=== PATIENT | female | born 1935 | race Caucasian/White ===

== ENCOUNTER 2016-10-05 10:49 | Observation (INO) ==
[2016-10-05] MEDS ORDERED: Ipratropium/Albuterol Neb 3 ML IH ONE (10:55)
--- NOTE | 2016-10-05 11:09 | Emergency Department Note ---
Disposition Clinical Impression: Pneumonia Qualifiers: Pneumonia type: due to unspecified organism Laterality: right Lung location: upper lobe of lung Qualified Code(s): J18.9 - Pneumonia, unspecified organism CKD (chronic kidney disease) Qualifiers: Chronic kidney disease stage: unspecified stage Qualified Code(s): N18.9 - Chronic kidney disease, unspecified Disposition: Admitted As Inpatient Condition: Good SOB HPI - General Chief Complaint: ED Shortness of Breath/Dyspnea Stated Complaint: SOB/fall Time Seen by Provider: 10/05/16 10:53 Source: patient, EMS Mode of arrival: EMS Limitations: no limitations Nursing Notes Reviewed: Yes Vital Signs Reviewed: Yes - History of Present Illness 81-year-old female history of chronic kidney disease presents for evaluation of shortness of breath. Patient notes that she has been more short of breath with exertion the past week. Reports that she woke up this morning more short of breath in which he has in the past. Denies any fevers but does note a productive cough. No chest pain. No nausea or vomiting. Patient states that she was weak and fall out of her wheelchair with weakness. Denies any pain. Pt Subjective Complaint: shortness of breath, cough - Related Data Home Medications Medication Instructions Recorded Confirmed Baclofen [Lioresal] 10 mg PO QAM 07/21/15 10/05/16 Bumetanide [Bumex] 2 mg PO DAILY 07/21/15 10/05/16 Cholecalciferol (Vitamin D3) 4,000 unit PO DAILY 07/21/15 10/05/16 [Vitamin D] Gabapentin [Neurontin] 100 mg PO QID 07/21/15 10/05/16 Insulin Glargine,Hum.rec.anlog 28 unit SQ QAM 07/21/15 10/05/16 [Lantus Solostar] Omeprazole [PriLOSEC] 20 mg PO DAILY 07/21/15 10/05/16 Pentosan Polysulfate Sodium 100 mg PO TID 07/21/15 10/05/16 [Elmiron] Acetaminophen [Tylenol] 650 mg PO Q8H 11/08/15 10/05/16 Multivitamin with Iron 1 each PO DAILY 08/23/16 10/05/16 [Multivitamins with Iron] HYDROcodone/Acet 5/325 mg [Loyal 1 tab PO Q6H PRN 10/05/16 10/05/16 5-325 mg] Allergies Allergy/AdvReac Type Severity Reaction Status Date / Time atorvastatin [From Lipitor] Allergy Nausea Verified 10/05/16 13:18 meperidine [From Demerol] Allergy Nausea Verified 10/05/16 13:18 NSAIDS (Non-Steroidal Allergy kideny Verified 10/05/16 13:18 Anti-Inflamma disease Zffulhh-Rer-Fgb Reductase Allergy Nausea Verified 10/05/16 13:18 Inhibitor [Statins] Ertapenem [From Invanz] AdvReac Confusion Verified 10/05/16 13:18 All systems ED: reviewed and negative except as stated. Constitutional: Reports: as per HPI. Denies: fever Eyes: Reports: as per HPI ENT ED: Reports: as per HPI Cardiovascular: Reports: as per HPI. Denies: chest pain Respiratory: Reports: as per HPI, cough, dyspnea, wheezes Gastrointestinal: Reports: as per HPI. Denies: abdominal pain, nausea, vomiting Genitourinary: Reports: as per HPI Musculoskeletal: Reports: as per HPI Integumentary: Reports: as per HPI Neurological: Reports: as per HPI Psychiatric: Reports: as per HPI Endocrine: Reports: as per HPI Past Medical History - Past Medical History Medical history: Reports: diabetes, GERD, hypertension, other Surgical history: Reports: appendectomy, cataract, cholecystectomy, orthopedic, other, SIMONA/BSO Psychiatric history: Reports: no psych history DIRECTOR OF LOSS PREVENTION history: Reports: non-contributory - Social History Smoking Status: Never smoker Smokeless Tobacco Status: No Alcohol use: Reports: none Drug use: Reports: none Physical Exam - General Limitations: no limitations General appearance: alert, in no apparent distress - Head Head exam: normocephalic, normal inspection - Eye Eye exam: Present: normal appearance, EOMI - ENT ENT exam: normal exam, normal oropharynx, mucous membranes moist - Neck Neck exam: Present: normal inspection - Chest Chest inspection: Present: normal inspection, symmetric chest wall rise - Respiratory Respiratory exam: Present: wheezes (Expiratory wheeze), other (Bilateral rhonchi ). Absent: respiratory distress - Cardiovascular Cardiovascular exam: Present: regular rate, normal rhythm - Abdominal Exam Abdominal exam: Present: soft, Non-Tender, normal bowel sounds. Absent: tenderness, distention, guarding - Extremities Exam Extremities exam: Present: normal inspection, pedal edema (3+ lower extremity edema) - Back Exam Back exam: Present: normal inspection - Neurological Exam Neurological exam: Present: alert, oriented X3 - Skin Skin exam: Present: warm, dry, intact, normal color Course Course Narrative: Patient seen and examined. Patient will get respiratory workup with chest x-ray , EKG, troponin and labs. Patient does have some diffuse wheezing and will be given a DuoNeb. - Reevaluation(s) Reevaluation #1: Patient resting comfortably in no acute distress. Tolerating oral liquids. Time: 12:26 Reevaluation #2: Resting comfortably awaiting bed upstairs. Time: 14:05 Vital Signs Temperature 97.0 F L 10/05/16 10:58 Pulse Rate 73 10/05/16 10:58 Respiratory Rate 18 10/05/16 10:58 Blood Pressure 160/69 10/05/16 10:58 O2 Sat by Pulse Oximetry 94 L 10/05/16 10:58 Temperature 97.0 F L 10/05/16 10:58 Pulse Rate 78 10/05/16 12:03 Respiratory Rate 16 10/05/16 13:39 Blood Pressure 124/56 10/05/16 13:39 O2 Sat by Pulse Oximetry 97 10/05/16 12:03 Oxygen Delivery Oxygen Delivery Room Air Shortness of Breath/Dyspnea - [facility] Narrative Medical decision making narrative: 81-year-old female patients for evaluation shortness of breath. Patient's been more short of breath over the past week. Notes several episodes of dyspnea overnight. Patient reports a productive cough. No fevers. Patient was recently hospitalized for urinary tract infection. Patient's chest x-ray shows evidence of right upper lobe pneumonia. Patient is high risk to fail outpatient therapy. Patient is not hypoxic and improved after aerosol neb. Patient will be treated with triple antibiotics hospital admission. Patient agreeable plan of care. Patient's EKG shows no acute changes. Patient's troponin was elevated and has been elevated in the past. Patient was given aspirin. Less likely this is ACS. - Lab Data Lab results reviewed: Yes I reviewed the patient's lab results. Result diagrams: 10/05/16 11:14 10/05/16 11:14 Lab Results 10/05/16 10/05/16 10/05/16 Range/Units 11:14 11:14 11:14 WBC 8.8 (4.3-11.1) K/mcL RBC 3.21 L (3.82-4.97) M/mcL Hgb 8.6 L (11.5-15.4) g/dL Hct 25.9 L (35.3-44.9) % MCV 80.7 L (83.0-100.0) fL MCH 26.8 L (28.0-33.3) pg MCHC 33.2 (31.6-35.5) g/dL RDW 16.3 H (11.5-14.5) % Plt Count 574 H (140-400) K/mcL MPV 10.2 (9.4-12.4) fL Immature Gran % 0.3 (0-4) % Seg Neutrophils % 77.1 % Lymphocytes % 13.3 % Monocytes % 8.1 % Eosinophils % 0.9 % Basophils % 0.3 % Neutrophils # 6.8 (1.6-8.9) K/mcL Lymphocytes # 1.2 (0.6-4.6) K/mcL Monocytes # 0.7 (0.0-1.3) K/mcL Eosinophils # 0.1 (0.0-0.6) K/mcL Basophils # 0.0 (0.0-0.2) K/mcL PT (9.4-12.1) Seconds INR APTT (26.0-36.0) Seconds Sodium 132 L (136-145) mEq/L Potassium 4.3 (3.5-4.5) mEq/L Chloride 100 (98-109) mEq/L Carbon Dioxide 22 (19-29) mEq/L BUN 46 H (7-20) mg/dL Creatinine 1.37 H (0.57-1.11) mg/dL Est GFR ( Amer) 45 L (> 60) Est GFR (Non-Af Amer) 37 L (> 60) BUN/Creatinine Ratio 34 H (6-26) Glucose 91 (70-99) mg/dL Calculated Osmolality 285 (280-300) Lactic Acid (0.5-2.2) mmol/L Calcium 9.3 (8.6-10.8) mg/dL Phosphorus (2.3-4.7) mg/dL Magnesium (1.6-2.6) mg/dL Total Bilirubin (0.2-1.2) mg/dL Direct Bilirubin (0.0-0.5) mg/dL Indirect Bilirubin (0.0-1.2) mg/dL AST (5-34) Units/L ALT (0-55) Units/L Alkaline Phosphatase (38-126) Units/L Creatine Kinase (29-168) Units/L Troponin I 0.06 H* (0-0.03) ng/mL B-Natriuretic Peptide (0-100) pg/mL Serum Total Protein (6.0-8.3) g/dL Albumin (3.5-5.0) g/dL Globulin (2.4-3.5) g/dL Albumin/Globulin Ratio (1.1-2.2) Urine Color (Yellow) Urine Clarity (Clear) Urine pH (5.0-8.0) pH Units Ur Specific Alexis (1.010-1.025) Urine Protein (Neg-Trace) mg/dL Urine Glucose (UA) (Normal) mg/dL Urine Ketones (Negative) mg/dL Urine Blood (Negative) Urine Nitrite (Negative) Urine Bilirubin (Negative) Urine Urobilinogen (Normal) mg/dL Ur Leukocyte Esterase (Negative) Urine Microscopic RBC (0-3) per hpf Urine Microscopic WBC (0-3) per hpf Ur Squamous Epith Cells (None-Few) per lpf Urine Bacteria (None-Few) per hpf Hyaline Casts (None-Few) per lpf Ur Culture Indicated? (NO) 10/05/16 10/05/16 10/05/16 Range/Units 11:14 11:48 11:48 WBC (4.3-11.1) K/mcL RBC (3.82-4.97) M/mcL Hgb (11.5-15.4) g/dL Hct (35.3-44.9) % MCV (83.0-100.0) fL MCH (28.0-33.3) pg MCHC (31.6-35.5) g/dL RDW (11.5-14.5) % Plt Count (140-400) K/mcL MPV (9.4-12.4) fL Immature Gran % (0-4) % Seg Neutrophils % % Lymphocytes % % Monocytes % % Eosinophils % % Basophils % % Neutrophils # (1.6-8.9) K/mcL Lymphocytes # (0.6-4.6) K/mcL Monocytes # (0.0-1.3) K/mcL Eosinophils # (0.0-0.6) K/mcL Basophils # (0.0-0.2) K/mcL PT (9.4-12.1) Seconds INR APTT (26.0-36.0) Seconds Sodium (136-145) mEq/L Potassium (3.5-4.5) mEq/L Chloride (98-109) mEq/L Carbon Dioxide (19-29) mEq/L BUN (7-20) mg/dL Creatinine (0.57-1.11) mg/dL Est GFR ( Amer) (> 60) Est GFR (Non-Af Amer) (> 60) BUN/Creatinine Ratio (6-26) Glucose (70-99) mg/dL Calculated Osmolality (280-300) Lactic Acid 1.2 (0.5-2.2) mmol/L Calcium (8.6-10.8) mg/dL Phosphorus (2.3-4.7) mg/dL Magnesium (1.6-2.6) mg/dL Total Bilirubin (0.2-1.2) mg/dL Direct Bilirubin (0.0-0.5) mg/dL Indirect Bilirubin (0.0-1.2) mg/dL AST (5-34) Units/L ALT (0-55) Units/L Alkaline Phosphatase (38-126) Units/L Creatine Kinase 438 H (29-168) Units/L Troponin I (0-0.03) ng/mL B-Natriuretic Peptide 1184 H (0-100) pg/mL Serum Total Protein (6.0-8.3) g/dL Albumin (3.5-5.0) g/dL Globulin (2.4-3.5) g/dL Albumin/Globulin Ratio (1.1-2.2) Urine Color (Yellow) Urine Clarity (Clear) Urine pH (5.0-8.0) pH Units Ur Specific Alexis (1.010-1.025) Urine Protein (Neg-Trace) mg/dL Urine Glucose (UA) (Normal) mg/dL Urine Ketones (Negative) mg/dL Urine Blood (Negative) Urine Nitrite (Negative) Urine Bilirubin (Negative) Urine Urobilinogen (Normal) mg/dL Ur Leukocyte Esterase (Negative) Urine Microscopic RBC (0-3) per hpf Urine Microscopic WBC (0-3) per hpf Ur Squamous Epith Cells (None-Few) per lpf Urine Bacteria (None-Few) per hpf Hyaline Casts (None-Few) per lpf Ur Culture Indicated? (NO) 10/05/16 10/05/16 10/05/16 Range/Units 11:48 11:48 12:30 WBC (4.3-11.1) K/mcL RBC (3.82-4.97) M/mcL Hgb (11.5-15.4) g/dL Hct (35.3-44.9) % MCV (83.0-100.0) fL MCH (28.0-33.3) pg MCHC (31.6-35.5) g/dL RDW (11.5-14.5) % Plt Count (140-400) K/mcL MPV (9.4-12.4) fL Immature Gran % (0-4) % Seg Neutrophils % % Lymphocytes % % Monocytes % % Eosinophils % % Basophils % % Neutrophils # (1.6-8.9) K/mcL Lymphocytes # (0.6-4.6) K/mcL Monocytes # (0.0-1.3) K/mcL Eosinophils # (0.0-0.6) K/mcL Basophils # (0.0-0.2) K/mcL PT 12.6 H (9.4-12.1) Seconds INR 1.2 APTT 41.5 H (26.0-36.0) Seconds Sodium (136-145) mEq/L Potassium (3.5-4.5) mEq/L Chloride (98-109) mEq/L Carbon Dioxide (19-29) mEq/L BUN (7-20) mg/dL Creatinine (0.57-1.11) mg/dL Est GFR ( Amer) (> 60) Est GFR (Non-Af Amer) (> 60) BUN/Creatinine Ratio (6-26) Glucose (70-99) mg/dL Calculated Osmolality (280-300) Lactic Acid (0.5-2.2) mmol/L Calcium (8.6-10.8) mg/dL Phosphorus 3.4 (2.3-4.7) mg/dL Magnesium 2.0 (1.6-2.6) mg/dL Total Bilirubin 0.4 (0.2-1.2) mg/dL Direct Bilirubin 0.2 (0.0-0.5) mg/dL Indirect Bilirubin 0.2 (0.0-1.2) mg/dL AST 49 H (5-34) Units/L ALT 37 (0-55) Units/L Alkaline Phosphatase 296 H (38-126) Units/L Creatine Kinase (29-168) Units/L Troponin I (0-0.03) ng/mL B-Natriuretic Peptide (0-100) pg/mL Serum Total Protein 7.6 (6.0-8.3) g/dL Albumin 3.2 L (3.5-5.0) g/dL Globulin 4.4 H (2.4-3.5) g/dL Albumin/Globulin Ratio 0.7 L (1.1-2.2) Urine Color Yellow (Yellow) Urine Clarity Turbid A (Clear) Urine pH 5.5 (5.0-8.0) pH Units Ur Specific Alexis 1.014 (1.010-1.025) Urine Protein 30 H (Neg-Trace) mg/dL Urine Glucose (UA) Normal (Normal) mg/dL Urine Ketones Negative (Negative) mg/dL Urine Blood Moderate H (Negative) Urine Nitrite Positive A (Negative) Urine Bilirubin Negative (Negative) Urine Urobilinogen Normal (Normal) mg/dL Ur Leukocyte Esterase Large H (Negative) Urine Microscopic RBC 5-15 H (0-3) per hpf Urine Microscopic WBC TNTC H (0-3) per hpf Ur Squamous Epith Cells Many H (None-Few) per lpf Urine Bacteria Many H (None-Few) per hpf Hyaline Casts None Seen (None-Few) per lpf Ur Culture Indicated? YES A (NO) - Radiology Data Radiology results reviewed: Yes I reviewed the patient's radiology results. Chest X-Ray 10/05/16 10:55 IMPRESSION: Right upper lobe infiltrate/pneumonia. D/ / 10/05/2016 11:45:26 Og Matt MD / Lilibeth Douglas Interpreting Provider: Og Matt MD - EKG Data EKG attestation: Yes I reviewed and interpreted this EKG. EKG results narrative: Normal sinus at 71. Left anterior fascicular block. Poor R-wave progression. Normal ST segments. Unchanged from July 2016. Mary - Mary Situation: Demographics Background: Presenting Complaint Assessment: Vital Signs, Course and respsone to treatment, Patient/Family Expectation, Pertinant Lab Results Recommendation: Barrier(s) to disposition, Recommendation based on pending studies, treatments, or consults Mary Report Given to: Dr. Rebecca Hernandez Repor Time: 12:51 Attestation Statement - Attestation Attestation: I examined this patient and my medical decision-making was reviewed with the WEB PROJECT MANAGER/PA/Advanced Practice Nurse/Resident Physician. I agree with the documented findings, disposition and treatment plan as described except to the extent set forth below. Patient emergency department after a fall. Patient states she has had increasing shortness of breath and dyspnea on exertion over the past week. She was more short of breath today and had a fall when she got up her in for exam. States she laid on the floor until home health at their just prior to her arrival. Denies injury. Exam shows her in no distress. Lungs clear. Plan. Patient with an infiltrate on her chest x-ray. Recent admission for UTI. We will start her on IV antibiotics for hospital-acquired pneumonia. Likely admission.
[2016-10-05 11:23] LABS: Basophils % 0.3 %; Eosinophils # 0.1 K/mcL (0.0-0.6); Eosinophils % 0.9 %; Hematocrit 25.9 % (35.3-44.9); Hemoglobin 8.6 g/dL (11.5-15.4); Immature Granulocytes % 0.3 % (0-4); Lymphocytes # 1.2 K/mcL (0.6-4.6); Lymphocytes % 13.3 %; Mean Corpuscular HGB Conc 33.2 g/dL (31.6-35.5); Mean Corpuscular Hemoglobin 26.8 pg (28.0-33.3); Mean Corpuscular Volume 80.7 fL (83.0-100.0); Mean Platelet Volume 10.2 fL (9.4-12.4); Monocytes # 0.7 K/mcL (0.0-1.3); Monocytes % 8.1 %; Neutrophils # 6.8 K/mcL (1.6-8.9); Platelet Count 574 K/mcL (140-400); Red Blood Count 3.21 M/mcL (3.82-4.97); Red Cell Distribution Width 16.3 % (11.5-14.5); Segmented Neutrophils % 77.1 %
[2016-10-05] MEDS ORDERED: Vancomycin 1,750 MG in D5% in Water 500 ML IVPB ONE (11:30)
[2016-10-05] MEDS ORDERED: Piperacillin/Tazobactam 3.375 GM in D5% in Water (Mini-Bag+) 100 ML IVPB ONE (11:30)
[2016-10-05] MEDS ORDERED: 0.9 % Sodium Chloride 1,000 ML IVC ONE (11:30)
[2016-10-05] MEDS ORDERED: Levofloxacin 750 MG/150 ML 750 MG/150 ML BAG IVPB ONE (11:30)
[2016-10-05 11:35] LABS: Calcium 9.3 mg/dL (8.6-10.8); Potassium 4.3 mEq/L (3.5-4.5)
[2016-10-05] MEDS ORDERED: Aspirin 325 MG TABLET PO ONE (11:48)
[2016-10-05 12:01] LABS: INR 1.2; Prothrombin Time 12.6 Seconds (9.4-12.1)
[2016-10-05 12:04] LABS: Activated Partial Thrombo Time 41.5 Seconds (26.0-36.0)
[2016-10-05 12:09] LABS: Albumin 3.2 g/dL (3.5-5.0); Albumin/Globulin Ratio 0.7 (1.1-2.2); Bilirubin,Direct 0.2 mg/dL (0.0-0.5); Bilirubin,Indirect 0.2 mg/dL (0.0-1.2); Bilirubin,Total 0.4 mg/dL (0.2-1.2); Globulin 4.4 g/dL (2.4-3.5); Phosphorous 3.4 mg/dL (2.3-4.7); Total Protein 7.6 g/dL (6.0-8.3)
[2016-10-05 12:48] LABS: Bilirubin,Urine Negative (Negative); Blood,Urine Moderate (Negative); Clarity,Urine Turbid (Clear); Color,Urine Yellow (Yellow); Glucose,Urine (UA) Normal (Normal); Ketones,Urine Negative (Negative); Leukocyte Esterase,Urine Large (Negative); Nitrite,Urine Positive (Negative); PH,Urine 5.5 pH Units (5.0-8.0); Protein,Urine 30 mg/dL (Neg-Trace); Specific Gravity,Urine 1.014 (1.010-1.025); Urobilinogen,Urine Normal (Normal)
[2016-10-05 12:53] LABS: Bacteria,Urine Many per hpf (None-Few); Hyaline Casts,Urine None Seen per lpf (None-Few); Squamous Epithelial Cell,Urine Many per lpf (None-Few); WBC,Urine TNTC per hpf (0-3)
[2016-10-05] MEDS ORDERED: Naloxone 0.4 MG/ML INJ IVP PRN (13:54)
[2016-10-05] MEDS ORDERED: Ondansetron 4 MG/2 ML VIAL IVP PRN (13:54)
--- NOTE | 2016-10-05 14:30 | Internal Med History&Physical ---
Date of Encounter: 10/05/16 Time of Encounter: 13:30 Assessment and Plan (1) Pneumonia Current visit: Yes Status: Acute Pt appears to be in no distress. Denies dyspnea or fevers. 1 week h/o prod cough with brown sputum and inability to take catch her breath, which brought her here today. 02 sat 95% on 2L 02/NC. Capillary refil brisk to nailbeds. IV ATB 02 to maintain sats > 92% Continuous pulse ox Blood and sputum cultures ordered Qualifiers: Pneumonia type: due to unspecified organism Laterality: right Lung location: upper lobe of lung Qualified Code(s): J18.9 - Pneumonia, unspecified organism (2) DM type 2 with diabetic peripheral neuropathy Current visit: No Status: Chronic Pt with history of DM type II with insulin use. Pt states that her accuchecks are normally in the 120's, but have been in the 150s since being ill. 1800 ADA/Renal diet Accuchecks ACHS Maintain home insulin Sliding scale coverage (3) CKD (chronic kidney disease), stage III Current visit: No Status: Chronic Renal/ 1800 ADA diet Monitor labs (4) Diabetic ulcer of right heel Current visit: No Status: Chronic Pt has dressing to R foot and LE. States that she has wound care in home daily to assist and sees wound care at [place] routinely. Pt is non-ambulatory for the last year or so due to lumbar laminectomy and heel ulcer. Consult wound care Dressing changes as written by wound care Internal Medicine - H&P: HPI Admitted From: Home Plans for Post Hospital Care: Home History of present illness: Ms. Connor is a 81 year old female with history of CKD and DM who came to hospital today with a 1 week history of cough, productive of brown sputum, rhinorrhea. Today pt could not catch her breath. Denies fever, chills, worsening edema or pain. Past Med Surg Social Fam HX - Past Medical History Source: patient Medical history: diabetes, GERD, hypertension (CKD, Decubitus ulcers), other Psychiatric history: no psych history - Past Surgical History Surgical History: appendectomy, cataract, cholecystectomy, orthopedic, other, SIMONA/BSO - Social History Smoking Status: Never smoker Smokeless Tobacco Status: No Alcohol use: none Drug use: none Occupational status: unemployed, retired Current living situation: Home - Independent Activity Level: Uses cane/walker - Family History Sister Living Status: Hx Family Endocrine Disorder: Yes Hx Family Autoimmune Disorders: Yes Father Living Status: Mother Living Status: Hx Family Cardiac Disorders: Yes (CAD, HTN, CVA) Internal Medicine - H&P: Meds Baclofen [Lioresal] 10 mg PO QAM 07/21/15 [History] Bumetanide [Bumex] 2 mg PO DAILY 07/21/15 [History] Cholecalciferol (Vitamin D3) [Vitamin D] 4,000 unit PO DAILY 07/21/15 [History] Gabapentin [Neurontin] 100 mg PO QID 07/21/15 [History] Insulin Glargine,Hum.rec.anlog [Lantus Solostar] 28 unit SQ QAM 07/21/15 [ History] Omeprazole [PriLOSEC] 20 mg PO DAILY 07/21/15 [History] Pentosan Polysulfate Sodium [Elmiron] 100 mg PO TID 07/21/15 [History] Acetaminophen [Tylenol] 650 mg PO Q8H 11/08/15 [History] Multivitamin with Iron [Multivitamins with Iron] 1 each PO DAILY 08/23/16 [ History] HYDROcodone/Acet 5/325 mg [[place] 5-325 mg] 1 tab PO Q6H PRN 10/05/16 [History] Allergies atorvastatin [From Lipitor] Allergy (Verified 10/05/16 13:18) Nausea meperidine [From Demerol] Allergy (Verified 10/05/16 13:18) Nausea NSAIDS (Non-Steroidal Anti-Inflamma Allergy (Verified 10/05/16 13:18) kideny disease Vfnzknd-Sdn-Yfj Reductase Inhibitor [Statins] Allergy (Verified 10/05/16 13:18) Nausea Ertapenem [From Invanz] Adverse Reaction (Verified 10/05/16 13:18) Confusion All Systems PM: A 10-system review of systems was performed and is negative for pertinent findings except as documented above in the HPI. - Constitutional Constitutional: no chills, no fever(s) - EENT Nose, mouth and throat: nasal discharge, no post-nasal drip, no sore throat Additional comments: Clear rhinorrhea x 1 week - Cardiovascular Cardiovascular ROS IM: no chest pain, no dyspnea, no lightheadedness - Respiratory Respiratory: as per HPI, cough, no wheezing, no pain on inspiration, no chest congestion, no pain with cough - Gastrointestinal Gastrointestinal: no diarrhea, no nausea, no vomiting - Constitutional Vitals: Temp Pulse Resp BP Pulse Ox 97.0 F L 78 16 124/56 97 10/05/16 10:58 10/05/16 12:03 10/05/16 13:39 10/05/16 13:39 10/05/16 12:03 General appearance: Present: A&O X 3, pleasant, no acute distress - Head Head exam: Present: normal inspection - Neck Neck exam general surgery: Absent: lymphadenopathy, tenderness - Expanded Neck Exam Neck exam: Absent: carotid bruit - Respiratory Respiratory exam: Present: decreased breath sounds. Absent: accessory muscle use, chest wall tenderness, rales, rhonchi, wheezes - Cardiovascular Cardiovascular exam: Present: RRR, +S1, +S2. Absent: distant heart sounds, tachycardia - GI/Abdominal GI/Abdominal exam: Present: diminished bowel sounds, soft. Absent: tenderness - Extremities Exam Extremities exam: Present: pedal edema, warm Additional comments: Pt has pressure/diabetic ulcer on R heel. It is tended to by wound care who comes to pts home daily. Pt has sixto pedal edema, feet warm, +ROM to sixto ankles. Pt requires assistance to amb at home daily. Has home health aide who helps her walk a short distance daily with her walker. - Neurological Exam Neurological exam: Present: alert, oriented X3, strengths equal and symetr throughout - Skin Skin exam: Present: dry, normal color, warm Additional comments: See above for wound Internal Med - H&P Results - Labs CBC & Chem 7: 10/05/16 11:14 10/05/16 11:14 - EKG Data Rate: normal - EKG Data EKG comments: 10/05/16 14:41 1st Degree AV block
[2016-10-05] MEDS: (Pentosan Polysulfate Sodium [Elmiron] 100 MG) PO SCH ×2 (15:05→23:06)
[2016-10-05] MEDS: Acetaminophen 325 MG TABLET PO PRN ×2 (15:06→23:04)
[2016-10-05] MEDS: Piperacillin/Tazobactam 3.375 GM in D5% in Water (Mini-Bag+) 100 ML IVPB SCH ×2 (15:33→23:05)
[2016-10-05] MEDS: Gabapentin 100 MG CAPSULE PO SCH ×2 (17:06→20:17)
[2016-10-05] MEDS: *HR* HYDROcodone/Acet 5/325 mg TABLET PO PRN (20:17)
[2016-10-05] MEDS ORDERED: Vancomycin 1,750 MG in D5% in Water 250 ML IVPB SCH (21:00)
[2016-10-05] MEDS: Insulin DETEMIR 100 UNIT/ML X5UNITS SQ SCH (23:05)
[2016-10-05] MEDS: Baclofen 10 MG TABLET PO SCH (23:05)
[2016-10-06 00:49] LABS: Basophils % 0.3 %; Eosinophils # 0.1 K/mcL (0.0-0.6); Hemoglobin 7.9 g/dL (11.5-15.4); Immature Granulocytes % 0.3 % (0-4); Lymphocytes % 15.4 %; Mean Corpuscular HGB Conc 32.9 g/dL (31.6-35.5); Mean Corpuscular Hemoglobin 26.6 pg (28.0-33.3); Mean Corpuscular Volume 80.8 fL (83.0-100.0); Mean Platelet Volume 10.6 fL (9.4-12.4); Monocytes # 0.6 K/mcL (0.0-1.3); Monocytes % 9.4 %; Neutrophils # 4.6 K/mcL (1.6-8.9); Platelet Count 504 K/mcL (140-400); Red Blood Count 2.97 M/mcL (3.82-4.97); Red Cell Distribution Width 16.4 % (11.5-14.5); Segmented Neutrophils % 72.6 %
[2016-10-06 01:00] LABS: Calcium 8.8 mg/dL (8.6-10.8); Potassium 4.3 mEq/L (3.5-4.5)
[2016-10-06] MEDS: Piperacillin/Tazobactam 3.375 GM in D5% in Water (Mini-Bag+) 100 ML IVPB SCH ×3 (06:24→23:30)
[2016-10-06] MEDS ORDERED: Insulin DETEMIR 100 UNIT/ML X5UNITS SQ SCH (09:00)
--- NOTE | 2016-10-06 10:01 | Electrocardiograph Report ---
[facility] Test Date: 2016-10-05 Pat Name: Hanh Connor Department: 103 Room: 3B53 Gender: F Store Clerk: COMFORT : [id number] Requested By: Adithya Cee Order Number: [id number] Reading MD: Malina West Measurements Intervals [place] Rate: 71 P: 84 MN: 252 QRS: -46 QRSD: 119 T: 56 QT: 402 QTc: 425 Interpretive Statements SINUS RHYTHM WITH FIRST DEGREE AV BLOCK LEFT ANTERIOR FASCICULAR BLOCK POSSIBLE ANTEROLATERAL MYOCARDIAL INFARCTION, PROBABLY OLD Electronically Signed On 10-06-16 09:58:32 EST by Malina West
--- NOTE | 2016-10-06 10:12 | Internal Med Progress Note ---
<New Sal - Last Filed: 10/06/16 15:59> Date of Encounter: 10/06/16 Time of Encounter: 09:30 - Assessment and plan (1) HCAP (healthcare-associated pneumonia) Current Visit: Yes Status: Acute Assessment and plan: As demonstrated by CXR which revealed RUL Since she had recent hospitalization, she meets HCAP criteria Will start on Vancomycin, Levaquin, and Zosyn Blood cultures pending (2) UTI (urinary tract infection) Current Visit: No Status: Acute Assessment and plan: Urine culture shows GNR, await sensitivities prior to de-escalation She does have history of ESBL Continue broad spectrum coverage as above for HCAP Qualifiers: Urinary tract infection type: acute cystitis Hematuria presence: without hematuria Qualified Code(s): N30.00 - Acute cystitis without hematuria (3) CKD (chronic kidney disease), stage III Current Visit: No Status: Chronic Assessment and plan: Cr is at baseline, 1.38 Avoid nephrotoxic agents and monitor electrolytes and kidney function (4) DM type 2 with diabetic peripheral neuropathy Current Visit: No Status: Chronic Assessment and plan: Pt with history of DM type II with insulin use. Pt states that her accuchecks are normally in the 120's, but have been in the 150s since being ill. Will start SSI ACHS accuchecks per protocol (5) Diabetic ulcer of right heel Current Visit: No Status: Chronic Assessment and plan: Pt has dressing to R foot and LE. States that she has wound care in home daily to assist and sees wound care at [facility] routinely. Pt is non-ambulatory for the last year or so due to lumbar laminectomy and heel ulcer. Consult wound care, appreciate recommendations (6) DVT prophylaxis Current Visit: No Status: Acute Assessment and plan: EPCDs - Subjective Interval history: Mrs. Connor is an 81 year old female who is being treated for pneumonia in her right upper lobe. She was admitted s/p mechanical fall. She is being treated for HCAP due to recent admission for UTI and is on triple antibiotic therapy of levaquin, zosyn, and vanc. Patient is concerned about her troponin level and wants a copy of her bloodwork. Nurse was informed and will contact medical records to procure for patient. - Constitutional Vitals: Temp Pulse Resp BP Pulse Ox 97.4 F L 69 17 145/66 92 L 10/06/16 08:31 10/06/16 08:31 10/06/16 08:31 10/06/16 08:31 10/06/16 08:31 General appearance: Present: A&O X 3, pleasant, no acute distress - Head Head exam: Present: atraumatic, normocephalic - Eye Eye exam: Present: conjuntiva pink, sclera anicteric - Neck Neck exam general surgery: Present: supple, trachea midline. Absent: lymphadenopathy - Respiratory Respiratory exam: Present: rhonchi. Absent: accessory muscle use, rales, wheezes Additional comments: Ronchi present in upper lobes - Cardiovascular Cardiovascular exam: Present: distant heart sounds, RRR, +S1, +S2. Absent: diastolic murmur, gallop, rubs, systolic murmur - GI/Abdominal GI/Abdominal exam: Present: normal bowel sounds, soft, no peritoneal signs. Absent: distended, tenderness Additional comments: Patient complains of discomfort in her hypogastric region. States her bladder hurts. Patient is incontinent. - Extremities Exam Extremities exam: Present: normal inspection, pedal edema, warm, radial pulses palpable and symetrical. Absent: calf tenderness, cyanotic Additional comments: Diabetic ulcers on R heel - Neurological Exam Neurological exam: Present: oriented X3, no focal deficits. Absent: pronater drift, facial droop, speech deficit - Skin Skin exam: Present: dry, intact Internal Medicine: Result - Labs CBC & Chem 7: 10/06/16 00:25 10/06/16 00:25 Labs: Short CBC 10/06/16 Range/Units 00:25 WBC 6.4 (4.3-11.1) K/mcL Hgb 7.9 L (11.5-15.4) g/dL Hct 24.0 L (35.3-44.9) % Plt Count 504 H (140-400) K/mcL Neutrophils # 4.6 (1.6-8.9) K/mcL BMP 10/06/16 00:25 Sodium 130 L Potassium 4.3 Chloride 98 Carbon Dioxide 22 BUN 40 H Creatinine 1.38 H Glucose 171 H Calcium 8.8 Cardiac Enzymes 10/05/16 10/06/16 Range/Units 18:02 00:25 Troponin I 0.09 H* 0.09 H* (0-0.03) ng/mL - ABG Interpretation ABG results: PT/INR, D-dimer PT 12.6 Seconds (9.4-12.1) H 10/05/16 11:48 Consult Discharge Plan - Plan Referrals: Julian Breen Jr, MD [Primary Care Provider] - <HelenaZach jimenez P - Last Filed: 10/06/16 18:43> Date of Encounter: 10/06/16 - Constitutional Vitals: Temp Pulse Resp BP Pulse Ox 98.2 F 62 16 113/51 92 L 10/06/16 17:02 10/06/16 17:02 10/06/16 17:02 10/06/16 17:02 10/06/16 17:02 Internal Medicine: Result - Labs CBC & Chem 7: 10/06/16 00:25 10/06/16 00:25 Labs: Short CBC 10/06/16 Range/Units 00:25 WBC 6.4 (4.3-11.1) K/mcL Hgb 7.9 L (11.5-15.4) g/dL Hct 24.0 L (35.3-44.9) % Plt Count 504 H (140-400) K/mcL Neutrophils # 4.6 (1.6-8.9) K/mcL BMP 10/06/16 00:25 Sodium 130 L Potassium 4.3 Chloride 98 Carbon Dioxide 22 BUN 40 H Creatinine 1.38 H Glucose 171 H Calcium 8.8 Cardiac Enzymes 10/05/16 10/06/16 Range/Units 18:02 00:25 Troponin I 0.09 H* 0.09 H* (0-0.03) ng/mL - ABG Interpretation ABG results: PT/INR, D-dimer PT 12.6 Seconds (9.4-12.1) H 10/05/16 11:48 - Attending Attestation I examined this patient and my medical decision-making was reviewed with the VENEER DRIER TAILER/PA/Advanced Practice Nurse/Resident Physician. I agree with the documented findings, disposition and treatment plan as described except to the extent set forth below.
[2016-10-06] MEDS: Bumetanide 1 MG TABLET PO SCH (10:36)
[2016-10-06] MEDS: Multivit/Ca/Min/Fe/FA 1 TAB TABLET PO SCH (10:36)
[2016-10-06] MEDS: Baclofen 10 MG TABLET PO SCH ×2 (10:36→21:07)
[2016-10-06] MEDS: Cholecalciferol (D-3) 1,000 UNIT TABLET PO SCH (10:36)
[2016-10-06] MEDS: Gabapentin 100 MG CAPSULE PO SCH ×4 (10:36→21:06)
[2016-10-06] MEDS: Acetaminophen 325 MG TABLET PO PRN ×2 (10:50→21:07)
[2016-10-06] MEDS: (Pentosan Polysulfate Sodium [Elmiron] 100 MG) PO SCH ×3 (10:57→21:08)
[2016-10-06] MEDS ORDERED: Levofloxacin 750 MG/150 ML 750 MG/150 ML BAG IVPB SCH (12:00)
[2016-10-06] MEDS ORDERED: Miconazole 2% ointment 114 GM TUBE TP SCH (12:30)
[2016-10-06] MEDS: Vancomycin 1,000 MG in D5% in Water 250 ML IVPB SCH (13:21)
[2016-10-06] MEDS: *HR* HYDROcodone/Acet 5/325 mg TABLET PO PRN (13:21)
[2016-10-06] MEDS ORDERED: *HR* Dextrose 50 % in Water (Syg) 50 ML SYRINGE IVP PRN (14:55)
[2016-10-06] MEDS ORDERED: Dextrose Gel 15 GM PO PRN ×2 (14:55)
[2016-10-06] MEDS ORDERED: D5% in Water 1,000 ML IV PRN (14:55)
[2016-10-06] MEDS: Insulin LISPRO 300 UNITS/3 ML VIAL SQ SCH (17:30)
[2016-10-06] MEDS: Insulin DETEMIR 100 UNIT/ML X5UNITS SQ SCH (21:08)
[2016-10-07 04:18] LABS: Basophils % 0.3 %; Eosinophils # 0.3 K/mcL (0.0-0.6); Eosinophils % 5.3 %; Hemoglobin 7.6 g/dL (11.5-15.4); Immature Granulocytes % 0.3 % (0-4); Lymphocytes # 1.1 K/mcL (0.6-4.6); Mean Corpuscular Hemoglobin 26.7 pg (28.0-33.3); Mean Corpuscular Volume 80.7 fL (83.0-100.0); Mean Platelet Volume 10.2 fL (9.4-12.4); Monocytes # 0.6 K/mcL (0.0-1.3); Monocytes % 10.5 %; Neutrophils # 3.7 K/mcL (1.6-8.9); Platelet Count 529 K/mcL (140-400); Red Blood Count 2.85 M/mcL (3.82-4.97); Red Cell Distribution Width 16.1 % (11.5-14.5); Segmented Neutrophils % 64.6 %
[2016-10-07 04:31] LABS: Calcium 8.6 mg/dL (8.6-10.8); Potassium 4.1 mEq/L (3.5-4.5)
[2016-10-07] MEDS ORDERED: Aminoglycoside Consult 1 EACH MC ONE (07:46)
[2016-10-07] MEDS: Miconazole 2% ointment 114 GM TUBE TP SCH (07:52)
[2016-10-07] MEDS: Insulin LISPRO 300 UNITS/3 ML VIAL SQ SCH ×3 (08:03→17:08)
[2016-10-07] MEDS: Bumetanide 1 MG TABLET PO SCH (09:41)
[2016-10-07] MEDS: Cholecalciferol (D-3) 1,000 UNIT TABLET PO SCH (09:41)
[2016-10-07] MEDS: Piperacillin/Tazobactam 3.375 GM in D5% in Water (Mini-Bag+) 100 ML IVPB SCH ×3 (09:41→23:05)
[2016-10-07] MEDS: Baclofen 10 MG TABLET PO SCH ×2 (09:41→22:59)
[2016-10-07] MEDS: Multivit/Ca/Min/Fe/FA 1 TAB TABLET PO SCH (09:41)
[2016-10-07] MEDS: Gabapentin 100 MG CAPSULE PO SCH ×4 (09:41→22:59)
[2016-10-07] MEDS: (Pentosan Polysulfate Sodium [Elmiron] 100 MG) PO SCH ×3 (09:42→23:13)
[2016-10-07] MEDS: REGRANEX 0.01% TP SCH (09:43)
[2016-10-07] MEDS: Acetaminophen 325 MG TABLET PO PRN ×3 (09:47→22:59)
[2016-10-07] MEDS ORDERED: Levofloxacin 750 MG/150 ML 750 MG/150 ML BAG IVPB SCH (12:00)
[2016-10-07] MEDS: Vancomycin 1,000 MG in D5% in Water 250 ML IVPB SCH (13:50)
--- NOTE | 2016-10-07 18:32 | Internal Med Progress Note ---
Date of Encounter: 10/07/16 Time of Encounter: 18:28 - Assessment and plan (1) HCAP (healthcare-associated pneumonia) Current Visit: Yes Status: Acute Assessment and plan: As demonstrated by CXR which revealed RUL Since she had recent hospitalization, she meets HCAP criteria Will start on Vancomycin, Levaquin, and Zosyn Blood cultures pending 10/07/2016 Blood culture negative so far Urine culture E coli : near noyola sensative strain On Vanco/Zosyn and Levaquin will continue for 1 more day if tomorrow blood c/s is negative then will d/c Vanco and zosyn (2) UTI (urinary tract infection) Current Visit: No Status: Acute Assessment and plan: Urine culture shows GNR, await sensitivities prior to de-escalation She does have history of ESBL Continue broad spectrum coverage as above for HCAP 10/07/2016 multiple episodes of E coli in urine need urology evaluation a outpatient Qualifiers: Urinary tract infection type: acute cystitis Hematuria presence: without hematuria Qualified Code(s): N30.00 - Acute cystitis without hematuria (3) CKD (chronic kidney disease), stage III Current Visit: No Status: Chronic Assessment and plan: Cr is at baseline, 1.38 Avoid nephrotoxic agents and monitor electrolytes and kidney function (4) DM type 2 with diabetic peripheral neuropathy Current Visit: No Status: Chronic Assessment and plan: Pt with history of DM type II with insulin use. Pt states that her accuchecks are normally in the 120's, but have been in the 150s since being ill. Will start SSI ACHS accuchecks per protocol - Subjective Interval history: seen and examined. no new complaints has occasional difficulty in breathing. - Constitutional Vitals: Temp Pulse Resp BP Pulse Ox 97.3 F L 63 17 144/68 97 10/07/16 11:57 10/07/16 11:57 10/07/16 11:57 10/07/16 11:57 10/07/16 09:57 General appearance: Present: A&O X 3, pleasant, no acute distress - Head Head exam: Present: atraumatic, normocephalic - Eye Eye exam: Present: PERRL, conjuntiva pink, sclera anicteric Pupils: Present: PERRL - Neck Neck exam general surgery: Present: supple, trachea midline. Absent: lymphadenopathy - Respiratory Respiratory exam: Present: CTAB. Absent: accessory muscle use, rales, rhonchi, wheezes - Cardiovascular Cardiovascular exam: Present: RRR, +S1, +S2. Absent: diastolic murmur, gallop, rubs, systolic murmur - GI/Abdominal GI/Abdominal exam: Present: normal bowel sounds, soft, no peritoneal signs. Absent: distended, tenderness - Extremities Exam Extremities exam: Present: warm, radial pulses palpable and symetrical. Absent : calf tenderness, cyanotic, pedal edema - Neurological Exam Neurological exam: Present: CN II-XII intact, oriented X3, no focal deficits. Absent: pronater drift, facial droop, speech deficit - Skin Skin exam: Present: dry, intact Internal Medicine: Result - Labs CBC & Chem 7: 10/07/16 04:02 10/07/16 04:02 Labs: Short CBC 10/07/16 Range/Units 04:02 WBC 5.8 (4.3-11.1) K/mcL Hgb 7.6 L (11.5-15.4) g/dL Hct 23.0 L (35.3-44.9) % Plt Count 529 H (140-400) K/mcL Neutrophils # 3.7 (1.6-8.9) K/mcL BMP 10/07/16 04:02 Sodium 130 L Potassium 4.1 Chloride 98 Carbon Dioxide 24 BUN 35 H Creatinine 1.53 H Glucose 80 Calcium 8.6 - ABG Interpretation ABG results: PT/INR, D-dimer PT 12.6 Seconds (9.4-12.1) H 10/05/16 11:48 - VTE Documentation of Mechanical Device: Intermittent pneumatic compression device Consult Discharge Plan - Plan Referrals: Julian Breen Jr, MD [Primary Care Provider] -
[2016-10-07] MEDS: Insulin DETEMIR 100 UNIT/ML X5UNITS SQ SCH (23:05)
[2016-10-08 05:12] LABS: Basophils % 0.3 %; Eosinophils # 0.3 K/mcL (0.0-0.6); Eosinophils % 4.7 %; Hematocrit 22.5 % (35.3-44.9); Hemoglobin 7.4 g/dL (11.5-15.4); Immature Granulocytes % 0.5 % (0-4); Lymphocytes # 1.3 K/mcL (0.6-4.6); Lymphocytes % 19.5 %; Mean Corpuscular HGB Conc 32.9 g/dL (31.6-35.5); Mean Corpuscular Hemoglobin 26.8 pg (28.0-33.3); Mean Corpuscular Volume 81.5 fL (83.0-100.0); Mean Platelet Volume 10.7 fL (9.4-12.4); Monocytes # 0.6 K/mcL (0.0-1.3); Monocytes % 9.1 %; Neutrophils # 4.3 K/mcL (1.6-8.9); Platelet Count 506 K/mcL (140-400); Red Blood Count 2.76 M/mcL (3.82-4.97); Red Cell Distribution Width 16.6 % (11.5-14.5); Segmented Neutrophils % 65.9 %
[2016-10-08 05:24] LABS: Albumin 2.6 g/dL (3.5-5.0); Albumin/Globulin Ratio 0.7 (1.1-2.2); Bilirubin,Total 0.4 mg/dL (0.2-1.2); Calcium 8.5 mg/dL (8.6-10.8); Globulin 3.8 g/dL (2.4-3.5); Potassium 3.9 mEq/L (3.5-4.5); Total Protein 6.4 g/dL (6.0-8.3)
[2016-10-08] MEDS: Piperacillin/Tazobactam 3.375 GM in D5% in Water (Mini-Bag+) 100 ML IVPB SCH (07:29)
[2016-10-08] MEDS: Miconazole 2% ointment 114 GM TUBE TP SCH (09:46)
[2016-10-08] MEDS: REGRANEX 0.01% TP SCH (09:46)
[2016-10-08] MEDS: Insulin LISPRO 300 UNITS/3 ML VIAL SQ SCH ×2 (09:46→12:01)
[2016-10-08] MEDS: Acetaminophen 325 MG TABLET PO PRN ×2 (09:52→17:45)
[2016-10-08] MEDS: Gabapentin 100 MG CAPSULE PO SCH ×4 (09:52→22:25)
[2016-10-08] MEDS: (Pentosan Polysulfate Sodium [Elmiron] 100 MG) PO SCH ×3 (09:52→22:23)
[2016-10-08] MEDS: Bumetanide 1 MG TABLET PO SCH (09:53)
[2016-10-08] MEDS: Baclofen 10 MG TABLET PO SCH ×2 (09:53→22:24)
[2016-10-08] MEDS: Multivit/Ca/Min/Fe/FA 1 TAB TABLET PO SCH (09:53)
[2016-10-08] MEDS: Cholecalciferol (D-3) 1,000 UNIT TABLET PO SCH (09:53)
--- NOTE | 2016-10-08 14:42 | Internal Med Progress Note ---
Date of Encounter: 10/08/16 Time of Encounter: 14:39 - Assessment and plan (1) HCAP (healthcare-associated pneumonia) Current Visit: Yes Status: Acute Assessment and plan: As demonstrated by CXR which revealed RUL Since she had recent hospitalization, she meets HCAP criteria Will start on Vancomycin, Levaquin, and Zosyn Blood cultures pending 10/07/2016 Blood culture negative so far Urine culture E coli : near noyola sensative strain On Vanco/Zosyn and Levaquin will continue for 1 more day if tomorrow blood c/s is negative then will d/c Vanco and zosyn 10/08/2016 Blood culture negative for 48 hours Urine culture positive for E coli this can be possible reason for all her symptoms will d/c Vanco/Zosyn/Levauin will start Ceftriaxone from tomorrow (2) UTI (urinary tract infection) Current Visit: No Status: Acute Assessment and plan: Urine culture shows GNR, await sensitivities prior to de-escalation She does have history of ESBL Continue broad spectrum coverage as above for HCAP 10/07/2016 multiple episodes of E coli in urine need urology evaluation a outpatient 10/08/2016 will start ceftraxone from tomorrow need urology as outpatient. Qualifiers: Urinary tract infection type: acute cystitis Hematuria presence: without hematuria Qualified Code(s): N30.00 - Acute cystitis without hematuria (3) CKD (chronic kidney disease), stage III Current Visit: No Status: Chronic Assessment and plan: Cr is at baseline, 1.38 Avoid nephrotoxic agents and monitor electrolytes and kidney function 10/08/2016 need to follow creat very closely. (4) DM type 2 with diabetic peripheral neuropathy Current Visit: No Status: Chronic Assessment and plan: Pt with history of DM type II with insulin use. Pt states that her accuchecks are normally in the 120's, but have been in the 150s since being ill. Will start SSI ACHS accuchecks per protocol - Subjective Interval history: seen and examined. no new complaints has occasional difficulty in breathing. 10/08/2016 seen and examined. no new complaints. eating well denies chest pain or SOB also does not have any more dysuria - Constitutional Vitals: Temp Pulse Resp BP Pulse Ox 97.2 F L 57 17 133/66 93 L 10/08/16 11:32 10/08/16 11:32 10/08/16 11:32 10/08/16 11:32 10/08/16 11:32 General appearance: Present: A&O X 3, pleasant, no acute distress - Head Head exam: Present: atraumatic, normocephalic - Eye Eye exam: Present: PERRL, conjuntiva pink, sclera anicteric Pupils: Present: PERRL - Neck Neck exam general surgery: Present: supple, trachea midline. Absent: lymphadenopathy - Respiratory Respiratory exam: Present: CTAB. Absent: accessory muscle use, rales, rhonchi, wheezes - Cardiovascular Cardiovascular exam: Present: RRR, +S1, +S2. Absent: diastolic murmur, gallop, rubs, systolic murmur - GI/Abdominal GI/Abdominal exam: Present: normal bowel sounds, soft, no peritoneal signs. Absent: distended, tenderness - Extremities Exam Extremities exam: Present: warm, radial pulses palpable and symetrical. Absent : calf tenderness, cyanotic, pedal edema - Neurological Exam Neurological exam: Present: CN II-XII intact, oriented X3, no focal deficits. Absent: pronater drift, facial droop, speech deficit - Skin Skin exam: Present: dry, intact Internal Medicine: Result - Labs CBC & Chem 7: 10/08/16 04:23 10/08/16 04:23 Labs: Short CBC 10/08/16 Range/Units 04:23 WBC 6.5 (4.3-11.1) K/mcL Hgb 7.4 L (11.5-15.4) g/dL Hct 22.5 L (35.3-44.9) % Plt Count 506 H (140-400) K/mcL Neutrophils # 4.3 (1.6-8.9) K/mcL BMP 10/08/16 04:23 Sodium 131 L Potassium 3.9 Chloride 98 Carbon Dioxide 25 BUN 37 H Creatinine 1.80 H Glucose 85 Calcium 8.5 L Liver Function 10/08/16 Range/Units 04:23 Total Bilirubin 0.4 (0.2-1.2) mg/dL AST 28 (5-34) Units/L ALT 31 (0-55) Units/L Alkaline Phosphatase 224 H (38-126) Units/L Albumin 2.6 L (3.5-5.0) g/dL - ABG Interpretation ABG results: PT/INR, D-dimer PT 12.6 Seconds (9.4-12.1) H 10/05/16 11:48 - VTE Documentation of Mechanical Device: Intermittent pneumatic compression device Consult Discharge Plan - Plan Referrals: Julian Breen Jr, MD [Primary Care Provider] -
[2016-10-08] MEDS: Insulin DETEMIR 100 UNIT/ML X5UNITS SQ SCH (22:25)
[2016-10-09 04:37] LABS: Basophils % 0.3 %; Eosinophils # 0.3 K/mcL (0.0-0.6); Eosinophils % 4.3 %; Hematocrit 22.8 % (35.3-44.9); Hemoglobin 7.5 g/dL (11.5-15.4); Immature Granulocytes % 0.5 % (0-4); Lymphocytes # 1.2 K/mcL (0.6-4.6); Mean Corpuscular HGB Conc 32.9 g/dL (31.6-35.5); Mean Corpuscular Hemoglobin 26.7 pg (28.0-33.3); Mean Corpuscular Volume 81.1 fL (83.0-100.0); Mean Platelet Volume 9.9 fL (9.4-12.4); Monocytes # 0.5 K/mcL (0.0-1.3); Monocytes % 8.2 %; Neutrophils # 3.8 K/mcL (1.6-8.9); Platelet Count 515 K/mcL (140-400); Red Blood Count 2.81 M/mcL (3.82-4.97); Red Cell Distribution Width 16.4 % (11.5-14.5); Segmented Neutrophils % 65.7 %
[2016-10-09 04:54] LABS: Albumin 2.6 g/dL (3.5-5.0); Albumin/Globulin Ratio 0.7 (1.1-2.2); Bilirubin,Total 0.4 mg/dL (0.2-1.2); Calcium 8.4 mg/dL (8.6-10.8); Globulin 3.7 g/dL (2.4-3.5); Potassium 3.9 mEq/L (3.5-4.5); Total Protein 6.3 g/dL (6.0-8.3)
[2016-10-09] MEDS: Insulin LISPRO 300 UNITS/3 ML VIAL SQ SCH ×3 (07:33→16:53)
[2016-10-09] MEDS: Cholecalciferol (D-3) 1,000 UNIT TABLET PO SCH (08:45)
[2016-10-09] MEDS: Baclofen 10 MG TABLET PO SCH ×2 (08:45→22:24)
[2016-10-09] MEDS: Bumetanide 1 MG TABLET PO SCH (08:45)
[2016-10-09] MEDS: Multivit/Ca/Min/Fe/FA 1 TAB TABLET PO SCH (08:45)
[2016-10-09] MEDS: Gabapentin 100 MG CAPSULE PO SCH ×4 (08:45→22:24)
[2016-10-09] MEDS: (Pentosan Polysulfate Sodium [Elmiron] 100 MG) PO SCH ×2 (08:46→12:56)
[2016-10-09] MEDS: Miconazole 2% ointment 114 GM TUBE TP SCH (08:46)
[2016-10-09] MEDS: REGRANEX 0.01% TP SCH (08:46)
[2016-10-09] MEDS: Acetaminophen 325 MG TABLET PO PRN ×3 (08:48→22:47)
--- NOTE | 2016-10-09 13:25 | Internal Med Progress Note ---
<Tacos Phan - Last Filed: 10/09/16 19:09> Date of Encounter: 10/09/16 Time of Encounter: 13:25 - Assessment and plan (1) HCAP (healthcare-associated pneumonia) Status: Acute Assessment and plan: -Bood culture negative for 48 hours -Urine culture positive for E coli -Patient d/c on Vanco/Zosyn/Levauqin. Ceftriaxone started on 10/09. -Will repeat CXR, labs. If WNL, discharge tomorrow. No powerglide for IV abx needed at this time. (2) UTI (urinary tract infection) Status: Acute Assessment and plan: -Urine culture shows GNR. Sensitive to ceftriaxone. Abx started on 10/09 -need urology as outpatient. Qualifiers: Urinary tract infection type: acute cystitis Hematuria presence: without hematuria Qualified Code(s): N30.00 - Acute cystitis without hematuria (3) CKD (chronic kidney disease), stage III Status: Chronic Assessment and plan: -Cr is at baseline, 1.38 -Avoid nephrotoxic agents and monitor electrolytes and kidney function -Continue to monitor. (4) DM type 2 with diabetic peripheral neuropathy Status: Chronic Assessment and plan: Pt with history of DM type II with insulin use. Pt states that her accuchecks are normally in the 120's, but have been in the 150s since being ill. Will start SSI ACHS accuchecks per protocol - Subjective Interval history: Patient feels better today than yesterday. Denies any SOB, CP, no dysuria or superpubic pain, is eating, has not have BM in the last two days. Does have BM regimen PRN. Is on chonic pain medicine. She lives at home by herself. Per the nurse, patient is in need of skill nursing facility, but the patient refuses. Social work has spoken with her as well. - Constitutional Vitals: Temp Pulse Resp BP Pulse Ox 97.4 F L 61 16 126/63 93 L 10/09/16 06:59 10/09/16 06:59 10/09/16 06:59 10/09/16 06:59 10/09/16 06:59 General appearance: Present: A&O X 3, pleasant, no acute distress - Head Head exam: Present: atraumatic, normal inspection - Respiratory Respiratory exam: Present: CTAB - Cardiovascular Cardiovascular exam: Present: RRR. Absent: diastolic murmur, systolic murmur - GI/Abdominal GI/Abdominal exam: Present: soft, no peritoneal signs. Absent: guarding, tenderness - Neurological Exam Neurological exam: Present: oriented X3 - Psychiatric Psychiatric exam: Present: normal affect, normal mood Internal Medicine: Result - Labs CBC & Chem 7: 10/09/16 04:22 10/09/16 04:22 Labs: Short CBC 10/09/16 Range/Units 04:22 WBC 5.8 (4.3-11.1) K/mcL Hgb 7.5 L (11.5-15.4) g/dL Hct 22.8 L (35.3-44.9) % Plt Count 515 H (140-400) K/mcL Neutrophils # 3.8 (1.6-8.9) K/mcL BMP 10/09/16 04:22 Sodium 135 L Potassium 3.9 Chloride 102 Carbon Dioxide 25 BUN 36 H Creatinine 1.73 H Glucose 60 L Calcium 8.4 L Liver Function 10/09/16 Range/Units 04:22 Total Bilirubin 0.4 (0.2-1.2) mg/dL AST 23 (5-34) Units/L ALT 28 (0-55) Units/L Alkaline Phosphatase 206 H (38-126) Units/L Albumin 2.6 L (3.5-5.0) g/dL - ABG Interpretation ABG results: PT/INR, D-dimer PT 12.6 Seconds (9.4-12.1) H 10/05/16 11:48 - VTE Documentation of Mechanical Device: Intermittent pneumatic compression device Consult Discharge Plan - Plan Referrals: Julian Breen Jr, MD [Primary Care Provider] - Prescriptions: Cefdinir [Omnicef] 300 mg PO BID 3 Days <Zach Malik - Last Filed: 10/14/16 23:12> Date of Encounter: 10/14/16 - Assessment and plan (1) HCAP (healthcare-associated pneumonia) Status: Acute (2) UTI (urinary tract infection) Status: Acute Qualifiers: Urinary tract infection type: acute cystitis Hematuria presence: without hematuria Qualified Code(s): N30.00 - Acute cystitis without hematuria (3) CKD (chronic kidney disease), stage III Status: Chronic (4) DM type 2 with diabetic peripheral neuropathy Status: Chronic - Constitutional Vitals: Temp Pulse Resp BP Pulse Ox 97.5 F L 56 16 137/63 92 L 10/09/16 16:03 10/09/16 16:03 10/09/16 16:03 10/09/16 16:03 10/09/16 16:03 Internal Medicine: Result - Labs CBC & Chem 7: 10/11/16 04:37 10/11/16 04:37 Labs: Short CBC 10/09/16 Range/Units 04:22 WBC 5.8 (4.3-11.1) K/mcL Hgb 7.5 L (11.5-15.4) g/dL Hct 22.8 L (35.3-44.9) % Plt Count 515 H (140-400) K/mcL Neutrophils # 3.8 (1.6-8.9) K/mcL BMP 10/09/16 04:22 Sodium 135 L Potassium 3.9 Chloride 102 Carbon Dioxide 25 BUN 36 H Creatinine 1.73 H Glucose 60 L Calcium 8.4 L Liver Function 10/09/16 Range/Units 04:22 Total Bilirubin 0.4 (0.2-1.2) mg/dL AST 23 (5-34) Units/L ALT 28 (0-55) Units/L Alkaline Phosphatase 206 H (38-126) Units/L Albumin 2.6 L (3.5-5.0) g/dL - ABG Interpretation ABG results: PT/INR, D-dimer PT 12.6 Seconds (9.4-12.1) H 10/05/16 11:48 - Attending Attestation I examined this patient and my medical decision-making was reviewed with the SURVEILLANCE OPERATOR/PA/Advanced Practice Nurse/Resident Physician. I agree with the documented findings, disposition and treatment plan as described except to the extent set forth below.
[2016-10-09] MEDS: Insulin DETEMIR 100 UNIT/ML X5UNITS SQ SCH (22:25)
[2016-10-10] MEDS: (Pentosan Polysulfate Sodium [Elmiron] 100 MG) PO SCH ×4 (01:02→21:27)
[2016-10-10 05:09] LABS: Basophils % 0.3 %; Eosinophils # 0.3 K/mcL (0.0-0.6); Eosinophils % 4.6 %; Hematocrit 24.7 % (35.3-44.9); Hemoglobin 8.1 g/dL (11.5-15.4); Immature Granulocytes % 0.3 % (0-4); Lymphocytes # 1.4 K/mcL (0.6-4.6); Lymphocytes % 20.2 %; Mean Corpuscular HGB Conc 32.8 g/dL (31.6-35.5); Mean Corpuscular Hemoglobin 26.8 pg (28.0-33.3); Mean Corpuscular Volume 81.8 fL (83.0-100.0); Mean Platelet Volume 10.2 fL (9.4-12.4); Monocytes # 0.5 K/mcL (0.0-1.3); Monocytes % 7.9 %; Neutrophils # 4.5 K/mcL (1.6-8.9); Platelet Count 569 K/mcL (140-400); Red Blood Count 3.02 M/mcL (3.82-4.97); Red Cell Distribution Width 16.6 % (11.5-14.5); Segmented Neutrophils % 66.7 %
[2016-10-10 05:19] LABS: Calcium 8.8 mg/dL (8.6-10.8); Potassium 3.9 mEq/L (3.5-4.5)
[2016-10-10] MEDS: Insulin LISPRO 300 UNITS/3 ML VIAL SQ SCH ×3 (07:49→15:19)
[2016-10-10] MEDS: Miconazole 2% ointment 114 GM TUBE TP SCH (07:50)
[2016-10-10] MEDS: Bumetanide 1 MG TABLET PO SCH (09:54)
[2016-10-10] MEDS: Multivit/Ca/Min/Fe/FA 1 TAB TABLET PO SCH (09:54)
[2016-10-10] MEDS: Gabapentin 100 MG CAPSULE PO SCH ×3 (09:54→21:26)
[2016-10-10] MEDS: Cholecalciferol (D-3) 1,000 UNIT TABLET PO SCH (09:54)
[2016-10-10] MEDS: Baclofen 10 MG TABLET PO SCH ×2 (09:54→21:26)
[2016-10-10] MEDS: Acetaminophen 325 MG TABLET PO PRN ×2 (10:00→21:25)
[2016-10-10] MEDS: REGRANEX 0.01% TP SCH (10:18)
--- NOTE | 2016-10-10 16:02 | Internal Med Progress Note ---
Date of Encounter: 10/10/16 Time of Encounter: 15:57 - Assessment and plan (1) HCAP (healthcare-associated pneumonia) Current Visit: Yes Status: Acute Assessment and plan: -Bood culture negative , clinically getting better -Patient d/c on Vanco/Zosyn/Levauqin. Ceftriaxone started on 10/09. - repeat CXR, shows right infra hilar penumonia, however has no leucocytosis or fever. will observe for today, if stale, discharge tomorrow. No powerglide for IV abx needed at this time. (2) DVT prophylaxis Current Visit: No Status: Acute Assessment and plan: EPCDs (3) UTI (urinary tract infection) Current Visit: No Status: Acute Assessment and plan: -Urine culture shows GNR. Sensitive to ceftriaxone. Abx started on 10/09 -need urology as outpatient. Qualifiers: Urinary tract infection type: acute cystitis Hematuria presence: without hematuria Qualified Code(s): N30.00 - Acute cystitis without hematuria (4) CKD (chronic kidney disease), stage III Current Visit: No Status: Chronic Assessment and plan: -Cr is now at 1.52, better than yest. -Avoid nephrotoxic agents and monitor electrolytes and kidney function -Continue to monitor. - Time Spent With Patient 25 - 35 minutes - Subjective Interval history: reports that she felt very bad early this morning but is now feeling better. denies any chest pain or sob. - Constitutional Vitals: Temp Pulse Resp BP Pulse Ox 97.6 F 66 15 114/50 92 L 10/10/16 15:19 10/10/16 15:19 10/10/16 15:19 10/10/16 15:19 10/10/16 15:19 General appearance: Present: A&O X 3, pleasant, no acute distress Exam: neck- supple chest- b/l clear, no added sounds CVS-s1 and s2, no m/r/g abd-soft, non tender, bs are present ext- no edema neuro- no focal defecits. Internal Medicine: Result - Labs CBC & Chem 7: 10/10/16 04:37 10/10/16 04:37 Labs: Short CBC 10/10/16 Range/Units 04:37 WBC 6.7 (4.3-11.1) K/mcL Hgb 8.1 L (11.5-15.4) g/dL Hct 24.7 L (35.3-44.9) % Plt Count 569 H (140-400) K/mcL Neutrophils # 4.5 (1.6-8.9) K/mcL BMP 10/10/16 04:37 Sodium 137 Potassium 3.9 Chloride 102 Carbon Dioxide 26 BUN 36 H Creatinine 1.52 H Glucose 60 L Calcium 8.8 - ABG Interpretation ABG results: PT/INR, D-dimer PT 12.6 Seconds (9.4-12.1) H 10/05/16 11:48 - Impressions Impressions Chest X-Ray 10/09/16 19:09 IMPRESSION: Right infrahilar opacities, concerning for pneumonia or edema. Recommend follow-up to document resolution Small left-sided pleural effusion with adjacent atelectasis. D/ / Yesi Wan MD / Yesi Wan MD Interpreting Provider: Yesi Wan MD - VTE Documentation of Mechanical Device: Intermittent pneumatic compression device Consult Discharge Plan - Plan Referrals: Sharita Reddy, DARLENE [Advanced Practice Nurse] - 10/20/16 1:30 pm
[2016-10-10] MEDS: Insulin DETEMIR 100 UNIT/ML X5UNITS SQ SCH (21:25)
[2016-10-11 05:22] LABS: Basophils # 0.1 K/mcL (0.0-0.2); Basophils % 0.7 %; Eosinophils # 0.2 K/mcL (0.0-0.6); Hematocrit 26.9 % (35.3-44.9); Hemoglobin 8.5 g/dL (11.5-15.4); Immature Granulocytes % 0.5 % (0-4); Lymphocytes # 1.9 K/mcL (0.6-4.6); Lymphocytes % 25.1 %; Mean Corpuscular HGB Conc 31.6 g/dL (31.6-35.5); Mean Corpuscular Volume 82.3 fL (83.0-100.0); Mean Platelet Volume 10.1 fL (9.4-12.4); Monocytes # 0.6 K/mcL (0.0-1.3); Neutrophils # 4.6 K/mcL (1.6-8.9); Platelet Count 635 K/mcL (140-400); Red Blood Count 3.27 M/mcL (3.82-4.97); Red Cell Distribution Width 17.1 % (11.5-14.5); Segmented Neutrophils % 62.7 %
[2016-10-11 06:12] LABS: Calcium 8.8 mg/dL (8.6-10.8); Potassium 4.3 mEq/L (3.5-4.5)
--- NOTE | 2016-10-11 09:15 | Discharge Summary ---
Date of Encounter: 10/11/16 Time of Encounter: 09:12 - Discharge Diagnosis (1) HCAP (healthcare-associated pneumonia) Priority: Primary Status: Acute (2) DVT prophylaxis Priority: Secondary Status: Acute (3) UTI (urinary tract infection) Priority: Primary Status: Acute Qualifiers: Urinary tract infection type: acute cystitis Hematuria presence: without hematuria Qualified Code(s): N30.00 - Acute cystitis without hematuria (4) CKD (chronic kidney disease), stage III Priority: Secondary Status: Chronic - Discharge Medications Prescriptions: Cefdinir [Omnicef] 300 mg PO BID 3 Days Home Medications: Bumetanide [Bumex] 2 mg PO DAILY 07/21/15 [History] Cholecalciferol (Vitamin D3) [Vitamin D] 4,000 unit PO DAILY 07/21/15 [History] Gabapentin [Neurontin] 100 mg PO QID 07/21/15 [History] Insulin Glargine,Hum.rec.anlog [Lantus Solostar] 28 unit SQ QAM 07/21/15 [ History] Omeprazole [PriLOSEC] 20 mg PO DAILY 07/21/15 [History] Pentosan Polysulfate Sodium [Elmiron] 100 mg PO TID 07/21/15 [History] Acetaminophen [Tylenol] 650 mg PO Q8H 11/08/15 [History] Multivitamin with Iron [Multivitamins with Iron] 1 each PO DAILY 08/23/16 [ History] Baclofen 10 mg PO QAM 10/05/16 [History] Baclofen 20 mg PO HS 10/05/16 [History] Cefdinir [Omnicef] 300 mg PO BID 3 Days 10/11/16 [Rx] HYDROcodone/Acet 5/325 mg [[place] 5-325 mg] 1 tab PO Q6H PRN #30 10/11/16 [Rx] Allergies/Adverse Reactions: Allergies atorvastatin [From Lipitor] Allergy (Verified 10/05/16 13:18) Nausea meperidine [From Demerol] Allergy (Verified 10/05/16 13:18) Nausea NSAIDS (Non-Steroidal Anti-Inflamma Allergy (Verified 10/05/16 13:18) kideny disease Majwxux-Mlr-Rce Reductase Inhibitor [Statins] Allergy (Verified 10/05/16 13:18) Nausea Ertapenem [From Invanz] Adverse Reaction (Verified 10/05/16 13:18) Confusion Date of admission: 10/07/16 18:27 Primary care physician: Julian Breen Jr, MD Discharging clinician: Sariah Lees Anticipated date of discharge: 10/11/16 - Patient Status Disposition: Transfer Inpatient Rehab Fac Condition: Fair Functional capacity at discharge: uses cane/walker Overall status at discharge: patient is back to baseline - Discharge Instructions Follow Up With: Julian Breen Jr, MD [Primary Care Provider] - - Diet and Activity Activity: as per physical therapy Diet: advance to your usual diet Interval History: 81-year-old female with past medical history of morbid obesity, CK D stage III, hypertension uncontrolled diabetes mellitus with chronic leg ulcers, chronic deconditioning on home physical therapy and chronic anemia. Patient presented with a week long history of shortness of breath and cough productive of brownish sputum. Said shortness of breath and cough worsened this morning after having a mechanical fall. Denies worsening pedal edema, denies orthopnea, and denies chest pain. Denies any other symptoms at this time. Physical exam reveals a morbidly obese female comfortable on room and subsequently to 93%, not tachypneic and tachycardic afebrile. Chest examination reveals bilateral vesicular breath sounds, no rhonchi no wheezing no rales. Heart sounds S1-S2 only. Extremity exam significant for chronic venous insufficiency bilateral 3+ pitting pedal edema right lower extremity eating compression stockings left lower extremity with wound dressing clean and dry wound not assessed. Labs and imaging reviewed significant findings include right upper lobe pneumonia on chest x-ray, no leukocytosis chronic stable anemia, chronic stable thrombocytosis, creatinine 1.7 at baseline, lactate is normal CK elevated at 438 , troponin elevated at 0.06 chronically. BNP 1184. UA with evidence of UTI. EKG shows first-degree AV block. No ST segment or T-wave changes. Patient was admitted for management for health care associated pneumonia due to recent admission and for UTI. CXR showed RUL pneumonia for which she was emperically started on vanco/zosyn and levo. blood cultures were negative. Later antibiotic was de -escalated to ceftriaxone based on urine CX sensitivity to cover both UTI and pneumonia. . Elevated troponin possibly due to renal disease, patient has no chest pain, Thrombocytosis and anemia stable at baseline. Renal function was stable at baseline. Insulin coverage for diabetes. PT review for fall. Fall precautions. Wound care consult for chronic leg ulcers. she improved clinically with IV antibiotics and is being dc [facility] to [facility] for rehab in stable condition, Hospital course: Ms. Connor is a 81 year old female Time spent discussing smoking cessation with patient: more than 10 minutes - Time Spent with Patient Total time spent providing and/or coordinating discharge services: Greater than 30 minutes - Constitutional Vitals: Temp Pulse Resp BP Pulse Ox 98.0 F 74 15 148/56 91 L 10/11/16 06:58 10/11/16 06:58 10/11/16 06:58 10/11/16 06:58 10/11/16 06:58 General appearance: Present: A&O X 3, pleasant, no acute distress Exam: General appearance: Present: A&O X 3, pleasant, no acute distress - Head Head exam: Present: atraumatic, normocephalic - Eye Eye exam: Present: conjuntiva pink, sclera anicteric - Neck Neck exam general surgery: Present: supple, trachea midline. Absent: lymphadenopathy - Respiratory Respiratory exam: Present: b/l clear . Absent: accessory muscle use, rales, wheezes - Cardiovascular Cardiovascular exam: Present: distant heart sounds, RRR, +S1, +S2. Absent: diastolic murmur, gallop, rubs, systolic murmur - GI/Abdominal GI/Abdominal exam: Present: normal bowel sounds, soft, no peritoneal signs. Absent: distended, tenderness - Extremities Exam Extremities exam: Present: normal inspection, pedal edema, warm, radial pulses palpable and symetrical. Absent: calf tenderness, cyanotic Additional comments: Diabetic ulcers on R heel - Neurological Exam Neurological exam: Present: oriented X3, no focal deficits. Absent: pronater drift, facial droop - VTE Documentation of Mechanical Device: Intermittent pneumatic compression device
--- NOTE | 2016-10-11 09:17 | Physician Discharge Referral ---
ExtendedCare Referral Info Transfer To: F Provider in Charge: iliana santiago Institutional Level of Care: Intermediate - MR - Diagnosis (1) HCAP (healthcare-associated pneumonia) Status: Acute (2) DVT prophylaxis Status: Acute (3) UTI (urinary tract infection) Status: Acute (4) CKD (chronic kidney disease), stage III Status: Chronic - Transfer Medications Prescriptions: Cefdinir [Omnicef] 300 mg PO BID 3 Days Home Medications: Bumetanide [Bumex] 2 mg PO DAILY 07/21/15 [History] Cholecalciferol (Vitamin D3) [Vitamin D] 4,000 unit PO DAILY 07/21/15 [History] Gabapentin [Neurontin] 100 mg PO QID 07/21/15 [History] Insulin Glargine,Hum.rec.anlog [Lantus Solostar] 28 unit SQ QAM 07/21/15 [ History] Omeprazole [PriLOSEC] 20 mg PO DAILY 07/21/15 [History] Pentosan Polysulfate Sodium [Elmiron] 100 mg PO TID 07/21/15 [History] Acetaminophen [Tylenol] 650 mg PO Q8H 11/08/15 [History] Multivitamin with Iron [Multivitamins with Iron] 1 each PO DAILY 08/23/16 [ History] Baclofen 10 mg PO QAM 10/05/16 [History] Baclofen 20 mg PO HS 10/05/16 [History] Cefdinir [Omnicef] 300 mg PO BID 3 Days 10/11/16 [Rx] HYDROcodone/Acet 5/325 mg [[place] 5-325 mg] 1 tab PO Q6H PRN #30 10/11/16 [Rx] Allergies/Adverse Reactions: Allergies atorvastatin [From Lipitor] Allergy (Verified 10/05/16 13:18) Nausea meperidine [From Demerol] Allergy (Verified 10/05/16 13:18) Nausea NSAIDS (Non-Steroidal Anti-Inflamma Allergy (Verified 10/05/16 13:18) kideny disease Mgeqoiy-Tup-Xys Reductase Inhibitor [Statins] Allergy (Verified 10/05/16 13:18) Nausea Ertapenem [From Invanz] Adverse Reaction (Verified 10/05/16 13:18) Confusion - Respiratory Orders Smoking Cessation: Smoking cessation has been advised. For more information, call the [place] Tobacco Quit Line at 2-441-AUHR-NOW. - Advance Directives Code Status: Full Code - Rehabiliation Orders Rehab Potential: Fair Rehab Orders: Evaluation for Physical Therapy, Evaluation for Occupational Therapy - Diet Orders Regular CERTIFICATION: I certify that the transfer of the above named patient to an Extended Care Facility is necessary for the continuing treatment of the diagnosis listed. The above information is true and accurate reflection of patient's current condition. Confidential - Redisclosure prohibited without a patient's written consent.
[2016-10-11] MEDS: Insulin LISPRO 300 UNITS/3 ML VIAL SQ SCH ×2 (09:20→14:33)
[2016-10-11] MEDS: Baclofen 10 MG TABLET PO SCH (09:28)
[2016-10-11] MEDS: Bumetanide 1 MG TABLET PO SCH (09:28)
[2016-10-11] MEDS: Cholecalciferol (D-3) 1,000 UNIT TABLET PO SCH (09:28)
[2016-10-11] MEDS: Gabapentin 100 MG CAPSULE PO SCH ×3 (09:29→14:37)
[2016-10-11] MEDS: Miconazole 2% ointment 114 GM TUBE TP SCH (09:29)
[2016-10-11] MEDS: REGRANEX 0.01% TP SCH (09:29)
[2016-10-11] MEDS: (Pentosan Polysulfate Sodium [Elmiron] 100 MG) PO SCH ×2 (09:30→14:37)
[2016-10-11] MEDS: Multivit/Ca/Min/Fe/FA 1 TAB TABLET PO SCH (09:33)
[2016-10-11 12:07] VITALS: BP 147/73
== END 2016-10-11 16:53 ==
LOC: EMEROO 10:49 → 3BNU 10:49
PROVIDERS: ADMIT Internal Medicine; ATTEND Nurse Practitioner Family

== ENCOUNTER 2018-08-22 14:48 | Observation (INO) ==
--- NOTE | 2018-08-22 15:01 | Emergency Department Note ---
Disposition Clinical Impression: UTI (urinary tract infection), Generalized weakness Disposition: Transfer LTC Condition: Good General Adult HPI - General Time Seen by Provider: 08/22/18 14:50 - Related Data Home Medications Medication Instructions Recorded Confirmed RX: Bumetanide [Bumex] 2 mg PO DAILY 07/21/15 08/23/18 RX: Cholecalciferol (Vitamin D3) 4,000 unit PO DAILY 07/21/15 08/23/18 [Vitamin D] RX: Gabapentin [Neurontin] 100 mg PO QID 07/21/15 08/23/18 RX: Omeprazole [PriLOSEC] 20 mg PO DAILY 07/21/15 08/23/18 RX: Pentosan Polysulfate Sodium 100 mg PO TID 07/21/15 08/23/18 [Elmiron] RX: Acetaminophen [Tylenol] 1,300 mg PO Q8H 11/08/15 08/23/18 RX: Baclofen 10 mg PO QAM 10/05/16 08/23/18 RX: Baclofen 20 mg PO HS 10/05/16 08/23/18 Cephalexin [Keflex] 250 mg PO DAILY 06/13/18 08/23/18 Ferrous Sulfate [Iron] 650 mg PO DAILY 06/13/18 08/23/18 Insulin Degludec [Tresiba 13 unit SQ DAILY 06/13/18 08/22/18 Flextouch U-100] Allergies Allergy/AdvReac Type Severity Reaction Status Date / Time atorvastatin [From Lipitor] Allergy Nausea Verified 08/23/18 13:10 meperidine [From Demerol] Allergy Nausea Verified 08/23/18 13:10 NSAIDS (Non-Steroidal Allergy kideny Verified 08/23/18 13:10 Anti-Inflamma disease Vkefqdf-Keq-Ama Reductase Allergy Nausea Verified 08/23/18 13:10 Inhibitor [Statins] Ertapenem [From Invanz] AdvReac Confusion Verified 08/23/18 13:10 Past Medical History - Past Medical History Medical history: Reports: renal disease Surgical history: Reports: appendectomy, cataract, cholecystectomy, orthopedic, other, SIMONA/BSO Psychiatric history: Reports: no psych history [employer] 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 - Social History Smoking Status: Never smoker Smokeless Tobacco Status: No Alcohol use: Reports: none Drug use: Reports: none Course Vital Signs Temperature 98.7 F 08/22/18 15:08 Pulse Rate 49 08/22/18 15:08 Respiratory Rate 18 08/22/18 15:08 Blood Pressure 152/82 08/22/18 15:08 O2 Sat by Pulse Oximetry 99 08/22/18 15:08 Temperature 98.5 F 08/23/18 11:56 Pulse Rate 51 08/23/18 11:56 Respiratory Rate 15 08/23/18 11:56 Blood Pressure 134/55 08/23/18 11:56 O2 Sat by Pulse Oximetry 94 08/23/18 11:56 Oxygen Delivery Oxygen Delivery Room Air Medical Decision Making - Lab Data Result diagrams: 08/23/18 03:53 08/23/18 03:53 Lab Results 08/22/18 08/22/18 08/22/18 Range/Units 15:06 15:32 15:32 WBC 8.9 (4.3-11.1) K/mcL RBC 3.72 L (3.82-4.97) M/mcL Hgb 10.7 L (11.5-15.4) g/dL Hct 32.8 L (35.3-44.9) % MCV 88.2 (83.0-100.0) fL MCH 28.8 (28.0-33.3) pg MCHC 32.6 (31.6-35.5) g/dL RDW 15.4 H (11.5-14.5) % Plt Count 355 (140-400) K/mcL MPV 11.1 (9.4-12.4) fL Immature Gran % 0.3 (0-4) % Seg Neutrophils % 80.3 % Lymphocytes % 12.4 % Monocytes % 4.9 % Eosinophils % 1.9 % Basophils % 0.2 % Neutrophils # 7.1 (1.6-8.9) K/mcL Lymphocytes # 1.1 (0.6-4.6) K/mcL Monocytes # 0.4 (0.0-1.3) K/mcL Eosinophils # 0.2 (0.0-0.6) K/mcL Basophils # 0.0 (0.0-0.2) K/mcL Sodium 131 L (136-145) mEq/L Potassium 4.6 (3.5-5.1) mEq/L Chloride 97 L (98-107) mEq/L Carbon Dioxide 26 (23-29) mEq/L BUN 48 H (8-23) mg/dL Creatinine 1.39 H (0.60-1.20) mg/dL Est GFR ( Amer) 44 L (> 60) Est GFR (Non-Af Amer) 36 L (> 60) BUN/Creatinine Ratio 35 H (6-26) Glucose 153 H (70-105) mg/dL Calculated Osmolality 288 (280-300) Calcium 9.3 (8.6-10.3) mg/dL Total Bilirubin 0.3 (0.3-1.0) mg/dL AST 22 (13-39) Units/L ALT 21 (7-52) Units/L Alkaline Phosphatase 213 H (34-104) Units/L Troponin I < 0.03 (< 0.04) ng/mL Serum Total Protein 7.4 (6.4-8.9) g/dL Albumin 3.8 (3.5-5.7) g/dL Globulin 3.6 H (2.4-3.5) g/dL Albumin/Globulin Ratio 1.1 (1.1-2.2) Urine Color Yellow (Yellow) Urine Clarity Turbid A (Clear) Urine pH 5.0 (5.0-8.0) pH Units Ur Specific [place] 1.021 (1.010-1.025) Urine Protein 30 H (Neg-Trace) mg/dL Urine Glucose (UA) Normal (Normal) mg/dL Urine Ketones Negative (Negative) mg/dL Urine Blood Moderate H (Negative) Urine Nitrite Positive A (Negative) Urine Bilirubin Negative (Negative) Urine Urobilinogen Normal (Normal) mg/dL Ur Leukocyte Esterase Large H (Negative) Urine Microscopic RBC 5-15 H (0-3) per hpf Urine Microscopic WBC 50-100 H (0-3) per hpf Ur Squamous Epith Cells Few (None-Few) per lpf Urine Bacteria Many H (None-Few) per hpf Attestation Statement - Attestation Attestation: I examined this patient and my medical decision-making was reviewed with the Resident Physician. I agree with the documented findings, disposition and treatment plan as described except to the extent set forth below. [id number] time provided Patient arrives by EMS complaining of generalized weakness. She has a history of recurrent recent falls. She has subacute ecchymosis to her left periorbital region. She is alert and lucid. She appears in no acute distress. She states she lives at home alone has [facility]
[2018-08-22 15:22] LABS: Bilirubin,Urine Negative (Negative); Blood,Urine Moderate (Negative); Clarity,Urine Turbid (Clear); Color,Urine Yellow (Yellow); Glucose,Urine (UA) Normal (Normal); Ketones,Urine Negative (Negative); Leukocyte Esterase,Urine Large (Negative); Nitrite,Urine Positive (Negative); Protein,Urine 30 mg/dL (Neg-Trace); Specific Gravity,Urine 1.021 (1.010-1.025); Urobilinogen,Urine Normal (Normal)
[2018-08-22 15:36] LABS: Squamous Epithelial Cell,Urine Few per lpf (None-Few); WBC,Urine 50-100 per hpf (0-3)
[2018-08-22 15:37] LABS: Bacteria,Urine Many per hpf (None-Few)
[2018-08-22 15:51] LABS: Basophils % 0.2 %; Eosinophils # 0.2 K/mcL (0.0-0.6); Eosinophils % 1.9 %; Hematocrit 32.8 % (35.3-44.9); Hemoglobin 10.7 g/dL (11.5-15.4); Immature Granulocytes % 0.3 % (0-4); Lymphocytes # 1.1 K/mcL (0.6-4.6); Lymphocytes % 12.4 %; Mean Corpuscular HGB Conc 32.6 g/dL (31.6-35.5); Mean Corpuscular Hemoglobin 28.8 pg (28.0-33.3); Mean Corpuscular Volume 88.2 fL (83.0-100.0); Mean Platelet Volume 11.1 fL (9.4-12.4); Monocytes # 0.4 K/mcL (0.0-1.3); Monocytes % 4.9 %; Neutrophils # 7.1 K/mcL (1.6-8.9); Platelet Count 355 K/mcL (140-400); Red Blood Count 3.72 M/mcL (3.82-4.97); Red Cell Distribution Width 15.4 % (11.5-14.5); Segmented Neutrophils % 80.3 %
[2018-08-22 16:09] LABS: Alanine Aminotransferase 21 Units/L (7-52); Albumin 3.8 g/dL (3.5-5.7); Albumin/Globulin Ratio 1.1 (1.1-2.2); Alkaline Phosphatase 213 Units/L (34-104); Aspartate Amino Transferase 22 Units/L (13-39); BUN/Creatinine Ratio 35 (6-26); Bilirubin,Total 0.3 mg/dL (0.3-1.0); Blood Urea Nitrogen 48 mg/dL (8-23); Calcium 9.3 mg/dL (8.6-10.3); Carbon Dioxide 26 mEq/L (23-29); Chloride 97 mEq/L (98-107); Globulin 3.6 g/dL (2.4-3.5); Glucose 153 mg/dL (70-105); Osmolality,Calculated 288 (280-300); Potassium 4.6 mEq/L (3.5-5.1); Sodium 131 mEq/L (136-145); Total Protein 7.4 g/dL (6.4-8.9); Troponin I < 0.03 ng/mL (< 0.04); eGFR For Non-African Americans 36 (> 60)
[2018-08-22] MEDS ORDERED: cefTRIAXone 1,000 MG in Water for inj. (sterile) 20 ML 10 ML IVP ONE (16:40)
--- NOTE | 2018-08-22 16:42 | Emergency Department Note ---
Disposition Clinical Impression: Generalized weakness UTI (urinary tract infection) Qualifiers: Urinary tract infection type: acute cystitis Hematuria presence: with hematuria Qualified Code(s): N30.01 - Acute cystitis with hematuria Disposition: Transfer LTC Condition: Good Time of Disposition: 17:04 General Adult HPI - General Chief complaint: ED Weakness Stated complaint: Generalized weakness Time Seen by Provider: 08/22/18 14:50 Source: patient, EMS Limitations: no limitations Nursing Notes Reviewed: Yes Vital Signs Reviewed: Yes - History of Present Illness HPI Narrative: 83-year-old female presents to emergency department with concern for generalized weakness. Patient has recently not been able to ambulate at home. She is there with family members. They can no longer take care of her. The patient's also had some recurrent falls as well. Patient reports that she fell last a few days ago. Left side of her face on the ground. Patient not taking any anticoagulation. Patient denies any chest pain, pressure, tightness, shortness of breath, cough, fever, does report that she take she may have a UTI. Denies any flank pain. Denies any nausea, vomiting. Pain Scale: 0 - Related Data Home Medications Medication Instructions Recorded Confirmed Bumetanide [Bumex] 2 mg PO DAILY 07/21/15 11/27/17 Cholecalciferol (Vitamin D3) 4,000 unit PO DAILY 07/21/15 11/27/17 [Vitamin D] Gabapentin [Neurontin] 100 mg PO QID 07/21/15 11/27/17 Omeprazole [PriLOSEC] 20 mg PO DAILY 07/21/15 11/27/17 Pentosan Polysulfate Sodium 100 mg PO BID 07/21/15 11/27/17 [Elmiron] Acetaminophen [Tylenol] 650 mg PO Q8H 11/08/15 11/27/17 Baclofen 10 mg PO QAM 10/05/16 11/27/17 Baclofen 20 mg PO HS 10/05/16 11/27/17 Cephalexin [Keflex] 250 mg PO DAILY 06/13/18 06/13/18 Ferrous Sulfate [Iron] 650 mg PO DAILY 06/13/18 06/13/18 Insulin Degludec [Tresiba 17 unit SQ DAILY 06/13/18 06/13/18 Flextouch U-100] Previous Rx's Medication Instructions Recorded Cephalexin [Keflex] 500 mg PO TID #30 capsule 08/22/18 Allergies Allergy/AdvReac Type Severity Reaction Status Date / Time atorvastatin [From Lipitor] Allergy Nausea Verified 11/27/17 09:11 meperidine [From Demerol] Allergy Nausea Verified 11/27/17 09:11 NSAIDS (Non-Steroidal Allergy kideny Verified 11/27/17 09:11 Anti-Inflamma disease [id number] Reductase Allergy Nausea Verified 11/27/17 09:11 Inhibitor [Statins] Ertapenem [From Invanz] AdvReac Confusion Verified 11/27/17 09:11 All systems ED: reviewed and negative except as stated. Review of Systems: As Per HPI Constitutional: Denies: fever Cardiovascular: Denies: chest pain, syncope Respiratory: Denies: cough, dyspnea Gastrointestinal: Denies: abdominal pain, nausea, vomiting Genitourinary: Reports: dysuria. Denies: urgency, frequency Musculoskeletal: Denies: back pain Integumentary: Reports: abrasion Neurological: Reports: weakness. Denies: headache, numbness, paresthesias Past Medical History - Past Medical History Medical history: Reports: diabetes, renal disease Surgical history: Reports: appendectomy, cataract, cholecystectomy, orthopedic, other, SIMONA/BSO Psychiatric history: Reports: no psych history [employer] history: Reports: non-contributory - Social History Smoking Status: Never smoker Smokeless Tobacco Status: No Alcohol use: Reports: none Drug use: Reports: none Physical Exam - General Limitations: no limitations General appearance: alert, in no apparent distress - Head Head exam: other (Patient has bruising above the left eye.) - Eye Eye exam: Present: EOMI - ENT ENT exam: mucous membranes moist - Neck Neck exam: Present: trachea midline - Chest Chest inspection: Present: symmetric chest wall rise - Respiratory Respiratory exam: Present: normal lung sounds bilaterally. Absent: respiratory distress, accessory muscle use - Cardiovascular Cardiovascular exam: Present: normal rhythm, bradycardia, normal heart sounds - Abdominal Exam Abdominal exam: Present: soft, Non-Tender. Absent: distention, guarding, rebound, rigidity - Extremities Exam Extremities exam: Present: normal capillary refill - Back Exam Back exam: Present: full ROM - Neurological Exam Neurological exam: Present: alert - Psychiatric Psychiatric exam: Present: normal affect, normal mood - Skin Skin exam: Present: warm, dry, intact Course Vital Signs Temperature 98.7 F 08/22/18 15:08 Pulse Rate 49 08/22/18 15:08 Respiratory Rate 18 08/22/18 15:08 Blood Pressure 152/82 08/22/18 15:08 O2 Sat by Pulse Oximetry 99 08/22/18 15:08 Temperature 98.7 F 08/22/18 15:08 Pulse Rate 43 08/22/18 17:38 Respiratory Rate 19 08/22/18 17:38 Blood Pressure 153/57 08/22/18 17:38 O2 Sat by Pulse Oximetry 97 08/22/18 17:38 Oxygen Delivery Oxygen Delivery Room Air Medical Decision Making - MDM Narrative Medical decision making narrative: 83-year-old female presents to emergency department concern for generalized weakness, not being able to ambulate or get out of bed at home. Patient was brought in by EMS. She was bradycardic initially, but patient reports that her heart rate is always in the 40s. Patient had first-degree AV block on EKG. Patient did sustain trauma from a fall 3 days prior. She did have bruising on the left forehead above her eyelid. Reportedly that she was taking a bladder medication and had some heparin in it. We performed a CT scan of the head, face, neck, which did not reveal any acute intracranial or traumatic injury. We did obtain a chest x-ray which revealed cardiomegaly with vascular congestion . Patient not hypoxic, not reporting shortness of breath, not having increased pitting edema bilaterally, do not think this is acute distress of heart failure exacerbation. We did obtain a straight catheter urinalysis. This blood evidence of hematuria, nitrites, leukocyte esterase. We did provide 1 g of Rocephin IV. Social work coordinated outpatient management with his shelter facility. We were attempting to discharge the patient there. However, as her transport came, there was reporting for nursing staff that patient's heart rate went down to the 20s. Patient was reported to be sleeping at this time. She was easily arousable easily awoken. Do not suspect that this patient syncopized. I did not witness this as an episode personally. I attempted to obtain EKG when I was informed, but the episode was brief and resolved and terminated immediately. Patient's heart rate went back to the 40s which patient reported at baseline. She was not reporting any other symptoms at that time. She was not hypotensive. When looking back at the medication list, did not see that patient was on any osorio blocking agent such as beta blockers, calcium channel blockers, digoxin, or any other rate controlling medications. I spoke with cardiology, Dr. Haley. I discussed the case with her. Stated that she would have the cardiology team follow patient tomorrow while she is inpati ent. I spoke to the hospitalist, Dr. Valdez, who agreed to accept patient for her generalized weakness. Bradycardia is concerning for the etiology for the patient's generalized weakness, as difficulty with ambulation to be consider symptomatic. Also believe that her generalized weakness is multifactorial with including the urinary tract infection, deconditioning. I discussed patient with plan. She agreed. Upon discharge from the hospital, [facility] 3D Reconstruction 08/22/18 00:00 IMPRESSION: No acute traumatic injury of the facial bones. D/ / 08/22/2018 17:01:42 Jhon Calvillo MD / miya Interpreting Provider: Jhon Calvillo MD Head CT 08/22/18 14:58 IMPRESSION: No acute intracranial abnormality. D/ / Deidra Ward MD / Deidra Ward MD Interpreting Provider: Deidra Ward MD Face CT 08/22/18 14:59 IMPRESSION: No acute traumatic injury of the facial bones. D/ / 08/22/2018 17:01:42 Jhon Calvillo MD / miya Interpreting Provider: Jhon Calvillo MD Chest X-Ray 08/22/18 15:00 IMPRESSION: Cardiomegaly and pulmonary vascular congestion. Bibasilar atelectasis or infiltrate. D/ / Vicenta Ramirez MD / Vicenta Ramirez MD Interpreting Provider: Vicenta aRmirez MD Vital Signs Temperature 98.7 F 08/22/18 15:08 Pulse Rate 49 08/22/18 15:08 Respiratory Rate 18 08/22/18 15:08 Blood Pressure 152/82 08/22/18 15:08 O2 Sat by Pulse Oximetry 99 08/22/18 15:08 Temperature 98.7 F 08/22/18 15:08 Pulse Rate 43 08/22/18 17:38 Respiratory Rate 19 08/22/18 17:38 Blood Pressure 153/57 08/22/18 17:38 O2 Sat by Pulse Oximetry 97 08/22/18 17:38 Oxygen Delivery Oxygen Delivery Room Air - Lab Data Result diagrams: 08/22/18 15:32 08/22/18 15:32 Lab Results 08/22/18 08/22/18 08/22/18 Range/Units 15:06 15:32 15:32 WBC 8.9 (4.3-11.1) K/mcL RBC 3.72 L (3.82-4.97) M/mcL Hgb 10.7 L (11.5-15.4) g/dL Hct 32.8 L (35.3-44.9) % MCV 88.2 (83.0-100.0) fL MCH 28.8 (28.0-33.3) pg MCHC 32.6 (31.6-35.5) g/dL RDW 15.4 H (11.5-14.5) % Plt Count 355 (140-400) K/mcL MPV 11.1 (9.4-12.4) fL Immature Gran % 0.3 (0-4) % Seg Neutrophils % 80.3 % Lymphocytes % 12.4 % Monocytes % 4.9 % Eosinophils % 1.9 % Basophils % 0.2 % Neutrophils # 7.1 (1.6-8.9) K/mcL Lymphocytes # 1.1 (0.6-4.6) K/mcL Monocytes # 0.4 (0.0-1.3) K/mcL Eosinophils # 0.2 (0.0-0.6) K/mcL Basophils # 0.0 (0.0-0.2) K/mcL Sodium 131 L (136-145) mEq/L Potassium 4.6 (3.5-5.1) mEq/L Chloride 97 L (98-107) mEq/L Carbon Dioxide 26 (23-29) mEq/L BUN 48 H (8-23) mg/dL Creatinine 1.39 H (0.60-1.20) mg/dL Est GFR ( Amer) 44 L (> 60) Est GFR (Non-Af Amer) 36 L (> 60) BUN/Creatinine Ratio 35 H (6-26) Glucose 153 H (70-105) mg/dL Calculated Osmolality 288 (280-300) Calcium 9.3 (8.6-10.3) mg/dL Total Bilirubin 0.3 (0.3-1.0) mg/dL AST 22 (13-39) Units/L ALT 21 (7-52) Units/L Alkaline Phosphatase 213 H (34-104) Units/L Troponin I < 0.03 (< 0.04) ng/mL Serum Total Protein 7.4 (6.4-8.9) g/dL Albumin 3.8 (3.5-5.7) g/dL Globulin 3.6 H (2.4-3.5) g/dL Albumin/Globulin Ratio 1.1 (1.1-2.2) Urine Color Yellow (Yellow) Urine Clarity Turbid A (Clear) Urine pH 5.0 (5.0-8.0) pH Units Ur Specific [place] 1.021 (1.010-1.025) Urine Protein 30 H (Neg-Trace) mg/dL Urine Glucose (UA) Normal (Normal) mg/dL Urine Ketones Negative (Negative) mg/dL Urine Blood Moderate H (Negative) Urine Nitrite Positive A (Negative) Urine Bilirubin Negative (Negative) Urine Urobilinogen Normal (Normal) mg/dL Ur Leukocyte Esterase Large H (Negative) Urine Microscopic RBC 5-15 H (0-3) per hpf Urine Microscopic WBC 50-100 H (0-3) per hpf Ur Squamous Epith Cells Few (None-Few) per lpf Urine Bacteria Many H (None-Few) per hpf - Radiology Data Radiology results reviewed: Yes I reviewed the patient's radiology results. - EKG Data EKG #1 EKG attestation: Yes I reviewed and interpreted this EKG. EKG results narrative: 14:50 Heart rate 49 bpm, VA interval 300 ms, QRS duration 100 3706, QT 470 ms, QTC 425 ms, left axis deviation. Sinus bradycardia with first-degree AV block. Intraventricular conduction delay and no ischemic ST changes noted on this EKG. 18:15 Heart rate 45 bpm, VA interval 243 ms, QRS duration 138 monocytes, QTC 442 ms, left axis deviation. First-degree AV block. Sinus bradycardia. Intraventricular conduction delay. No changes on his EKG when in comparison to the previous study. This EKG was obtained this patient was reported to be bradycardic in the 20s. Patient was not hypotensive at the time. Appeared to be resting comfortable per nursing staff. I did not witness this episode. EKG was unable to capture this and it resolved immediately.
--- NOTE | 2018-08-22 20:03 | Internal Med History&Physical ---
<Valentín Chaudharystephania Hair - Last Filed: 08/22/18 22:35> Date of Encounter: 08/22/18 Time of Encounter: 20:03 Internal Medicine - H&P: HPI Chief complaint: Weakness Admitted From: Home History of present illness: Ms. Connor is a 83 year old female with past medical history of CKD Stage 3, anemia, and DM2 on insulin. She presented to the ED after a mechanical fall at home. Pt states she has been feeling increasingly weak over the past 2-3 days. Reports the weakness is generalized, but somewhat greater in the LEs bilaterally. States she tends to fall frequently at home with her most recent fall prior to this about 3 days ago. States "my legs were too weak" when she fell while moving onto the commode. Denies any lightheadedness or vertigo. No loss of consciousness or confusion. Pt called EMS after the fall and then arrived to the ED. While here, she does admit to some lightheadedness that does not correlate with her falls. She states her falls tend to be of mechanical nature, but denies any change in coordination. No recent change to diet, states blood sugars have been well controlled with home insulin regimen and her most re cent A1c was 8.2. She also denies any fever, chills, chest pain, shortness of breath, increased cough or sputum production, abdominal pain, nausea, vomiting, change in bowel movements, or new numbness or tingling. 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 She does complain of dysuria and urinary incontinence, but states this is her baseline. Does admit to a hx of UTIs. Past Med Surg Social Fam HX - Past Medical History Medical history: diabetes, renal disease Additional medical history: neuropathy, chronic kidney disease Psychiatric history: no psych history - Past Surgical History Surgical History: appendectomy, cataract, cholecystectomy, orthopedic, other, SIMONA/BSO Additional surgical history: cervical spine repair, laminectomy - Social History Smoking Status: Never smoker Smokeless Tobacco Status: No Alcohol use: none Drug use: none - Family History Father Living Status: Mother Living Status: Hx Family Cardiac Disorders: Yes (CAD, HTN, CVA) Sister Living Status: Hx Family Endocrine Disorder: Yes Hx Family Autoimmune Disorders: Yes Internal Medicine - H&P: Meds RX: Bumetanide [Bumex] 2 mg PO DAILY 07/21/15 [History] RX: Cholecalciferol (Vitamin D3) [Vitamin D] 4,000 unit PO DAILY 07/21/15 [History] RX: Gabapentin [Neurontin] 100 mg PO QID 07/21/15 [History] RX: Omeprazole [PriLOSEC] 20 mg PO DAILY 07/21/15 [History] RX: Pentosan Polysulfate Sodium [Elmiron] 100 mg PO BID 07/21/15 [History] RX: Acetaminophen [Tylenol] 650 mg PO Q8H 11/08/15 [History] RX: Baclofen 10 mg PO QAM 10/05/16 [History] RX: Baclofen 20 mg PO HS 10/05/16 [History] Cephalexin [Keflex] 250 mg PO DAILY 06/13/18 [History] Ferrous Sulfate [Iron] 650 mg PO DAILY 06/13/18 [History] Insulin Degludec [Tresiba Flextouch U-100] 13 unit SQ DAILY 06/13/18 [History] Cephalexin [Keflex] 500 mg PO TID #30 capsule 08/22/18 [Rx] Allergy/AdvReac Type Severity Reaction Status Date / Time atorvastatin [From Lipitor] Allergy Nausea Verified 11/27/17 09:11 meperidine [From Demerol] Allergy Nausea Verified 11/27/17 09:11 NSAIDS (Non-Steroidal Allergy kideny Verified 11/27/17 09:11 Anti-Inflamma disease Orablpc-Rtj-Bvo Reductase Allergy Nausea Verified 11/27/17 09:11 Inhibitor [Statins] Ertapenem [From Invanz] AdvReac Confusion Verified 11/27/17 09:11 All Systems PM: A 10-system review of systems was performed and is negative for pertinent findings except as documented above in the HPI. - Constitutional Constitutional: falls, weakness, no chills, no fever(s) - EENT Eyes: no blurry vision, no change in vision, no photophobia Ears: no decreased hearing, no tinnitus Nose, mouth and throat: no nasal congestion, no sinus pain, no sinus pressure - Cardiovascular Cardiovascular ROS IM: lightheadedness, no chest pain, no diaphoresis, no dyspnea, no palpitations, no syncope - Respiratory Respiratory: no cough, no dyspnea, no wheezing, no chest congestion, no excessive phlegm production - Gastrointestinal Gastrointestinal: no abdominal pain, no change in bowel habits, no change in stool character, no nausea, no vomiting - Genitourinary Genitourinary: dysuria (baseline), urinary incontinence (baseline), no flank pain - Musculoskeletal Musculoskeletal ROS IM: no arthralgias, no myalgias, no numbness, no tingling - Integumentary Integumentary IM: skin ulcer (reports on left buttock ), no new lesions, no unusual bruising, no jaundice - Neurological Neurological ROS: dizziness, frequent falls, paresthesias (known neuropathy), weakness, no confusion, no headache(s), no numbness, no tingling, no vertigo - Hematologic/Lymphatic Hematologic/Lymphatic: no easy bleeding, no easy bruising - Constitutional Vitals: Temp Pulse Resp BP Pulse Ox 98.7 F 43 19 153/57 97 08/22/18 15:08 08/22/18 17:38 08/22/18 17:38 08/22/18 17:38 08/22/18 17:38 General appearance: Present: A&O X 3, pleasant, no acute distress, obese, answers questions appropriately Exam: General: well developed obese female in no acute distress Head: normocephalic, no lesions, periorbital contusions Eyes: PERRL, EOMI, sclera anicteric, conjunctiva pink Neck: supple, trachea midline Lungs: CTA bilaterally, non-labored breathing. no wheezes, rales, or rhonchi Heart: Bradycardic +s1 +s2 No murmurs, clicks, or rubs GI: abdomen soft, non-tender, non-distended. normoactive bowel sounds Extremities: warm, radial pulses palpable and symmetrical. No cyanosis. Non- pitting edema of bilateral LEs. Neuro: A&Ox3. No focal deficits. No speech difficulty or abnormality. Skin: warm, dry, aforementioned periorbital contusions, contusion on lateral right hip, Stage 2 pressure ulcer on left buttock. Significant non-blanching erythema at left pannus crease. Internal Med - H&P Results - Labs CBC & Chem 7: 08/22/18 15:32 08/22/18 15:32 Labs: Short CBC 08/22/18 Range/Units 15:32 WBC 8.9 (4.3-11.1) K/mcL Hgb 10.7 L (11.5-15.4) g/dL Hct 32.8 L (35.3-44.9) % Plt Count 355 (140-400) K/mcL Neutrophils # 7.1 (1.6-8.9) K/mcL BMP 08/22/18 15:32 Sodium 131 L Potassium 4.6 Chloride 97 L Carbon Dioxide 26 BUN 48 H Creatinine 1.39 H Glucose 153 H Calcium 9.3 Cardiac Enzymes 08/22/18 Range/Units 15:32 Troponin I < 0.03 (< 0.04) ng/mL Liver Function 08/22/18 Range/Units 15:32 Total Bilirubin 0.3 (0.3-1.0) mg/dL AST 22 (13-39) Units/L ALT 21 (7-52) Units/L Alkaline Phosphatase 213 H (34-104) Units/L Albumin 3.8 (3.5-5.7) g/dL Urine 08/22/18 Range/Units 15:06 Urine Color Yellow (Yellow) Urine Clarity Turbid A (Clear) Urine pH 5.0 (5.0-8.0) pH Units Ur Specific [place] 1.021 (1.010-1.025) Urine Protein 30 H (Neg-Trace) mg/dL Urine Glucose (UA) Normal (Normal) mg/dL - Impressions ITS Impressions 3D Reconstruction 08/22/18 00:00 IMPRESSION: No acute traumatic injury of the facial bones. D/ / 08/22/2018 17:01:42 Jhon Calvillo MD / miya Interpreting Provider: Jhon Calvillo MD Head CT 08/22/18 14:58 IMPRESSION: No acute intracranial abnormality. D/ / Deidra Ward MD / Deidra Ward MD Interpreting Provider: Deidra Ward MD Face CT 08/22/18 14:59 IMPRESSION: No acute traumatic injury of the facial bones. D/ / 08/22/2018 17:01:42 Jhon Calvillo MD / miya Interpreting Provider: Jhon Calvillo MD Chest X-Ray 08/22/18 15:00 IMPRESSION: Cardiomegaly and pulmonary vascular congestion. Bibasilar atelectasis or infiltrate. D/ / Vicenta Ramirez MD / Vicenta Ramirez MD Interpreting Provider: Vicenta Ramirez MD - Assessment and plan (1) Bradycardia Current Visit: Yes Status: Acute Assessment and plan: EKG showed sinus bradycardia Asymptomatic with no AMS, hypotension, or chest pain Pt states her HR is normally in the 50s with some 1st degree block She also reports HR will decrease further any time she has an infection Correct hyponatremia and hypochloremia with NS Echo in the AM Cardiology consult Continue to monitor closely (2) Generalized weakness Current Visit: Yes Status: Acute Assessment and plan: Likely due to physical deconditioning with multiple health issues Pt states she has a bed and is planning to go to [facility] Will consult social secretary to assist with this transition and to ensure place ment (3) UTI (urinary tract infection) Current Visit: Yes Status: Acute Assessment and plan: As seen on UA Hx of multiple UTIs with E coli Has baseline dysuria and incontinence Obtain urine culture Continue ceftriaxone Qualifiers: Urinary tract infection type: acute cystitis Hematuria presence: with hematuria Qualified Code(s): N30.01 - Acute cystitis with hematuria (4) Anemia due to chronic kidney disease Current Visit: Yes Status: Chronic Assessment and plan: Known Anemia related to CKD stage 3 Pt states her hemoglobin is typically around 10 Hgb on admission 10.7 - Stable Continue to monitor Qualifiers: Chronic kidney disease stage: stage 3 (moderate) Qualified Code(s): N18.3 - Chronic kidney disease, stage 3 (moderate); D63.1 - Anemia in chronic kidney disease (5) CKD (chronic kidney disease), stage III Current Visit: Yes Status: Chronic Assessment and plan: Known Stage 3 CKD eGFR on admission at 36 which appears to be stable based on previous visits Avoid nephrotoxins and renally dose medications (6) DM2 (diabetes mellitus, type 2) Current Visit: Yes Status: Chronic Assessment and plan: Pt reports most recent A1c was 8.2 Continue Levemir 17u daily which is equivalent to home dose Lose dose SSI Qualifiers: Diabetes mellitus senior care insulin use: with senior care use Diabetes mellitus complication status: with kidney complications Diabetes mellitus complication detail: with chronic kidney disease Chronic kidney disease stage: stage 3 (moderate) Qualified Code(s): E11.22 - Type 2 diabetes mellitus with diabetic chronic kidney disease; N18.3 - Chronic kidney disease, stage 3 (moderate); Z79.4 - technician terminal and repeater (current) use of insulin (7) DVT prophylaxis Current Visit: Yes Status: Acute Assessment and plan: SQ Heparin - Time Spent With Patient Total time spent is greater than 50% in coordination of care (as documented) at patient's floor/unit and/or counseling patient: <Sharan Raynancy - Last Filed: 08/23/18 00:16> Date of Encounter: 08/23/18 All Systems PM: A 10-system review of systems was performed and is negative for pertinent findings except as documented above in the HPI. - Constitutional Vitals: Temp Pulse Resp BP Pulse Ox 98.7 F 43 15 144/58 98 08/22/18 15:08 08/22/18 20:25 08/22/18 20:25 08/22/18 20:25 08/22/18 20:25 Internal Med - H&P Results - Labs CBC & Chem 7: 08/22/18 15:32 08/22/18 15:32 Labs: Short CBC 08/22/18 Range/Units 15:32 WBC 8.9 (4.3-11.1) K/mcL Hgb 10.7 L (11.5-15.4) g/dL Hct 32.8 L (35.3-44.9) % Plt Count 355 (140-400) K/mcL Neutrophils # 7.1 (1.6-8.9) K/mcL BMP 08/22/18 15:32 Sodium 131 L Potassium 4.6 Chloride 97 L Carbon Dioxide 26 BUN 48 H Creatinine 1.39 H Glucose 153 H Calcium 9.3 Cardiac Enzymes 08/22/18 Range/Units 15:32 Troponin I < 0.03 (< 0.04) ng/mL Liver Function 08/22/18 Range/Units 15:32 Total Bilirubin 0.3 (0.3-1.0) mg/dL AST 22 (13-39) Units/L ALT 21 (7-52) Units/L Alkaline Phosphatase 213 H (34-104) Units/L Albumin 3.8 (3.5-5.7) g/dL Urine 08/22/18 Range/Units 15:06 Urine Color Yellow (Yellow) Urine Clarity Turbid A (Clear) Urine pH 5.0 (5.0-8.0) pH Units Ur Specific [place] 1.021 (1.010-1.025) Urine Protein 30 H (Neg-Trace) mg/dL Urine Glucose (UA) Normal (Normal) mg/dL - Impressions ITS Impressions 3D Reconstruction 08/22/18 00:00 IMPRESSION: No acute traumatic injury of the facial bones. D/ / 08/22/2018 17:01:42 Jhon Calvillo MD / miya Interpreting Provider: Jhon Calvillo MD Head CT 08/22/18 14:58 IMPRESSION: No acute intracranial abnormality. D/ / Deidra Ward MD / Deidra Ward MD Interpreting Provider: Deidra Ward MD Face CT 08/22/18 14:59 IMPRESSION: No acute traumatic injury of the facial bones. D/ / 08/22/2018 17:01:42 Jhon Calvillo MD / radha ramirez Interpreting Provider: Jhon Calvillo MD Chest X-Ray 08/22/18 15:00 IMPRESSION: Cardiomegaly and pulmonary vascular congestion. Bibasilar atelectasis or infiltrate. D/ / Vicenta Ramirez MD / Vicenta Ramirez MD Interpreting Provider: Vicenta Ramirez MD - Assessment and plan (1) UTI (urinary tract infection) Current Visit: Yes Status: Acute Qualifiers: Urinary tract infection type: acute cystitis Hematuria presence: with hematuria Qualified Code(s): N30.01 - Acute cystitis with hematuria (2) DM2 (diabetes mellitus, type 2) Current Visit: Yes Status: Chronic Qualifiers: Diabetes mellitus technician terminal and repeater insulin use: with senior care use Diabetes mellitus complication status: with kidney complications Diabetes mellitus complication detail: with chronic kidney disease Chronic kidney disease stage: stage 3 (moderate) Qualified Code(s): E11.22 - Type 2 diabetes mellitus with diabetic chronic kidney disease; N18.3 - Chronic kidney disease, stage 3 (moderate); Z79.4 - shelter (current) use of insulin (3) CKD (chronic kidney disease), stage III Current Visit: Yes Status: Chronic (4) DVT prophylaxis Current Visit: Yes Status: Acute (5) Anemia due to chronic kidney disease Current Visit: Yes Status: Chronic Qualifiers: Chronic kidney disease stage: stage 3 (moderate) Qualified Code(s): N18.3 - Chronic kidney disease, stage 3 (moderate); D63.1 - Anemia in chronic kidney disease (6) Generalized weakness Current Visit: Yes Status: Acute (7) Bradycardia Current Visit: Yes Status: Acute - Time Spent With Patient Total time spent is greater than 50% in coordination of care (as documented) at patient's floor/unit and/or counseling patient: - Attending Attestation I performed a history and physical exam of the patient and discussed management with the resident. I reviewed the resident's note and agree with the documented findings and plan of care. Hanh Connor is an 83-year-old obese woman with stage III chronic kidney disease, hypertension, uncontrolled diabetes with chronic leg ulcers, chronic anemia and deconditioning who presents to the ER with a complaint of generalized weakness. She states that the reason she has not been able to ambulate adequately at home and that she suffered a traumatic fall 3 days ago but did not seek medical attention. Today again she was unable to get up from her commode so she rolled over to the floor and called EMS to bring her in. In the ER she was seen clinically stable but with significant ecchymotic lesions around the left periorbital region with no fractures identified on imaging. She was noted to be bradycardic into the 30s and low 40s concerning. She states to me that her heart rate typically is low but in the 50s and that she has a first-degree heart block but sometimes it gets lower when she gets an infection. She states that she always has dysuria given the frequency of her urinary tract infections but has not had fever or chills. She admits to needing inpatient placement for a living as she cannot be cared for at home. She states she has this arranged at [facility]. Physical exam remarkable for well- developed white female lying comfortably in bed in no acute distress. Ecchymosis surrounding the left eye and congregation region with a slightly tender to palpation. No wheezing, rales or rhonchi on chest auscultation. Abdomen soft and nontender. Right leg wrapped in Hima bandage. Psych affect is appropriate. We will admit for observation of symptomatic bradycardia and cystitis given the positive UA with dysuria. Send urine for culture. Place on ceftriaxone 1 g daily. Monitor on telemetry. Cardiology consult in the morning. Hyponatremia and hypochloremia likely secondary to volume depletion therefore we will administer 1 L of saline. Kidney function stable. Continue home doses of insulin. DVT prophylaxis with subcutaneous heparin. GABO CHRISTIAN.
[2018-08-22] MEDS ORDERED: Naloxone 0.4 MG/ML INJ IVP PRN (20:29)
[2018-08-22] MEDS ORDERED: Dextrose Gel 15 GM/37.5 ML TUBE PO PRN ×2 (20:44)
[2018-08-22] MEDS ORDERED: *HR* Dextrose 50 % in Water (Syg) 50 ML SYRINGE IVP PRN (20:44)
[2018-08-22] MEDS ORDERED: D5% in Water 1,000 ML IVC PRN (20:44)
[2018-08-22] MEDS ORDERED: 0.9 % Sodium Chloride 1,000 ML IVC SCH (21:00)
[2018-08-22] MEDS: *HR* Heparin 5,000 UNIT/ML VIAL SQ SCH (22:08)
[2018-08-22] MEDS: Insulin LISPRO 300 UNITS/3 ML VIAL SQ SCH (22:31)
[2018-08-22] MEDS: Nystatin POWDER 30 GM BOTTLE TP SCH (22:31)
--- NOTE | 2018-08-23 02:12 | Event Note ---
Date of Encounter: 08/23/18 Time of Encounter: 02:10 Ms. Connor has had 2 episodes where her HR has dropped into the 20s as seen on tele monitor. Each time pt was immediately evaluated. Pt remains asymptomatic only complaining of feeling cold. Remains A&Ox3. BP remains slightly elevated in 140s systolic. Denies any chest pain. States she does not want to be transcutaneously paced.
[2018-08-23 04:25] LABS: Hematocrit 27.9 % (35.3-44.9); Hemoglobin 9.2 g/dL (11.5-15.4); Mean Platelet Volume 11.2 fL (9.4-12.4); Platelet Count 277 K/mcL (140-400); Red Blood Count 3.17 M/mcL (3.82-4.97)
[2018-08-23 04:26] LABS: Basophils % 0.4 %; Eosinophils # 0.1 K/mcL (0.0-0.6); Eosinophils % 1.8 %; Immature Granulocytes % 0.1 % (0-4); Lymphocytes # 1.1 K/mcL (0.6-4.6); Lymphocytes % 14.3 %; Monocytes # 0.5 K/mcL (0.0-1.3); Monocytes % 6.3 %; Neutrophils # 5.7 K/mcL (1.6-8.9); Segmented Neutrophils % 77.1 %
[2018-08-23] MEDS: Gabapentin 100 MG CAPSULE PO SCH ×5 (04:35→20:33)
[2018-08-23 04:50] LABS: Calcium 8.5 mg/dL (8.6-10.3); Potassium 4.3 mEq/L (3.5-5.1)
[2018-08-23] MEDS: Acetaminophen 325 MG TABLET PO SCH ×3 (05:41→18:07)
[2018-08-23] MEDS: *HR* Heparin 5,000 UNIT/ML VIAL SQ SCH ×3 (05:41→21:05)
[2018-08-23] MEDS: Insulin LISPRO 300 UNITS/3 ML VIAL SQ SCH ×4 (08:01→20:29)
[2018-08-23] MEDS ORDERED: Perflutren Lipid Microsphere 1.3 ML in 0.9 % Sodium Chloride 8.7 ML IVP ONE (08:45)
[2018-08-23] MEDS ORDERED: Perflutren Lipid Microsphere 2 ML VIAL ONE (08:49)
[2018-08-23] MEDS ORDERED: Insulin DETEMIR 100 UNIT/ML X5UNITS SQ SCH ×2 (09:00→12:00)
[2018-08-23] MEDS ORDERED: cefTRIAXone 1,000 MG in 0.9 % Sodium Chloride Mini Bag 100 ML IVPB SCH (09:00)
--- NOTE | 2018-08-23 09:12 | Cardiology Consult Note ---
Addendum entered and electronically signed by Immanuel Crawford MD 08/24/18 08:22: I examined this patient and my medical decision-making was reviewed with the Resident Physician. I agree with the documented findings, disposition and treatment plan as described except to the extent set forth below. 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 Currently no symptom arrhythmia correlation that would benefit from PPM. Not on AVN blocking medications Thank you for the consult, Immanuel Crawford MD [facility] Original Note: Date of Encounter: 08/23/18 Time of Encounter: 09:02 Assessment and Plan (1) Bradycardia Current Visit: Yes Status: Acute patient presents with fall and weakness and is found to have substantial bradycarida last night her lowest HR was 18, however she is able to maintian mentation and BP. telemetry shows possible PAC vs mobitz type II block TSH: 3.789 sodium and potassium WNL not on bblocker echocardiogram is pending. plan: this morning patients HR is in the 60s. We will follow telemetry to see if patient has bradycardic episodes during the daytime vs only having them when asleep. Discussion w patient/family: The assessment and plan as outlined above was discussed with the patient and/or family members who expressed understanding and agreement. All questions were answered. Thank you for involving us in the care of your patient. Please call with any questions. History of Present Illness Consult date: 08/23/18 Consult reason: bradycardia Chief complaint: weakness History of present illness: Ms. Connor is a 83 year old female with hx of CKD3, anemia, DM2 presented after a mechanical fall with cc of severe fatigue. Patient reports this started 2-3 days ago and she was not able to standup from her chair. Patient, at baseline, is able to stand up and walk with her walker. She has had two falls in the past five days with bruising on her left side including face. She denies chest pain, syncope, lightheadedness. She does report sob. Patient was found to be bradycardic on arrival. She reports her resting HR is usually between 50-60s. She is not on b-blockers. She denies hx of CAD. She denies hx of smoking, alcohol use. Past Med Surg Social Fam HX - Past Medical History Medical history: diabetes, renal disease Additional medical history: neuropathy, chronic kidney disease Psychiatric history: no psych history - Past Surgical History Surgical History: appendectomy, cataract, cholecystectomy, orthopedic, other, SIMONA/BSO Additional surgical history: cervical spine repair, laminectomy - Social History Smoking Status: Never smoker Smokeless Tobacco Status: No Alcohol use: none Drug use: none - Family History Sister Living Status: Hx Family Cardiac Disorders: Yes (pacemaker, HTN) Hx Family Endocrine Disorder: Yes Hx Family Autoimmune Disorders: Yes Father Living Status: Mother Adopted: Sh[place]: kannan Connor Living Status: Age at : 79 Cause of : dementia Hx Family Cardiac Disorders: Yes (CAD, HTN, CVA) Medications and Allergies Bumetanide [Bumex] 2 mg PO DAILY 07/21/15 [History] Cholecalciferol (Vitamin D3) [Vitamin D] 4,000 unit PO DAILY 07/21/15 [History] Gabapentin [Neurontin] 100 mg PO QID 07/21/15 [History] Omeprazole [PriLOSEC] 20 mg PO DAILY 07/21/15 [History] Pentosan Polysulfate Sodium [Elmiron] 100 mg PO BID 07/21/15 [History] Acetaminophen [Tylenol] 650 mg PO Q8H 11/08/15 [History] Baclofen 10 mg PO QAM 10/05/16 [History] Baclofen 20 mg PO HS 10/05/16 [History] Cephalexin [Keflex] 250 mg PO DAILY 06/13/18 [History] Ferrous Sulfate [Iron] 650 mg PO DAILY 06/13/18 [History] Insulin Degludec [Tresiba Flextouch U-100] 13 unit SQ DAILY 06/13/18 [History] Cephalexin [Keflex] 500 mg PO TID #30 capsule 08/22/18 [Rx] Allergy/AdvReac Type Severity Reaction Status Date / Time atorvastatin [From Lipitor] Allergy Nausea Verified 11/27/17 09:11 meperidine [From Demerol] Allergy Nausea Verified 11/27/17 09:11 NSAIDS (Non-Steroidal Allergy kideny Verified 11/27/17 09:11 Anti-Inflamma disease Whmyarp-Auq-Qnm Reductase Allergy Nausea Verified 11/27/17 09:11 Inhibitor [Statins] Ertapenem [From Invanz] AdvReac Confusion Verified 11/27/17 09:11 All Systems Review: The remainder of the systems were reviewed and are negative Review of Systems: Constitutional: Denies fever, chills HEENT: Denies headache, trauma, blurry vision, eye discharge, ear pain, ear discharge neck pain, sore throat, rhinorrhea Heart: Denies chest pain palpitations, LE edema Lungs: Reports shortness of breath, denies cough Abdomen: Denies abdominal pain nausea vomiting diarrhea MSK: Denies back pain, falls, joint pain Kidney: reports dysuria, hematuria Skin: Denies rash, ulcers Neuro: reports numbness and tingling b/l feet Psych: denies anxiety, depression Physical Examination Vital Signs, Last 4 Hours Pulse Resp BP Pulse Ox 08/23/18 06:19 38 15 115/63 94 General: Conversant, No Apparent Distress HEENT: Atraumatic, Normocephaly, Mucus Membranes Moist Neck: No JVD, Normal carotid pulses Cardiac: Reg Rate and Rhythm, Normal S1 and S2, No Murmur Lungs: Normal Breath Sounds, No Wheeze, Rales, Rhonchi Neuro: Alert and responsive, No focal deficits noted Abdomen: Soft, Non-Tender Skin: No rashes noted on visualized skin Musculoskeletal: No Chest Wall Tenderness Extremities: No Clubbing, No Cyanosis, Normal Pulses, Other (1+ pedal edema b/l ) Results 08/23/18 03:53 08/23/18 03:53 Lab Results 08/22/18 08/22/18 08/23/18 15:32 15:32 03:53 WBC 8.9 7.3 Hgb 10.7 L 9.2 L D Hct 32.8 L 27.9 L Plt Count 355 277 Sodium 131 L Potassium 4.6 Chloride 97 L Carbon Dioxide 26 BUN 48 H Creatinine 1.39 H Glucose 153 H Calcium 9.3 Total Bilirubin 0.3 AST 22 ALT 21 Alkaline Phosphatase 213 H Troponin I < 0.03 TSH 08/23/18 08/23/18 03:53 03:53 WBC Hgb Hct Plt Count Sodium 136 Potassium 4.3 Chloride 103 Carbon Dioxide 27 BUN 43 H Creatinine 1.16 Glucose 40 L* Calcium 8.5 L Total Bilirubin AST ALT Alkaline Phosphatase Troponin I TSH 3.789 Consult Discharge Plan - Plan Referrals: Julian Breen Jr, MD [Primary Care Provider] -
--- NOTE | 2018-08-23 10:03 | Internal Med Progress Note ---
<Sofia Cheatham - Last Filed: 08/23/18 13:45> Hospitalist Progress Note - Encounter Date of Encounter: 08/23/18 Time of Encounter: 10:03 - Subjective Interval History: Ms. Connor is a 83 year old female with past medical history of CKD Stage 3, anemia, and DM2 on insulin, recurrent urinary tract infections who presented to [facility] complaining of weakness. She also reported and mechanical fall at home. She had been increasingly week for the past couple days with associated lightheadedness. She was found to be bradycardiac with heart rate in the 20s. EKG demonstrated first-degree AV block. She was noted to have a urinary tract infection. Cardiology consulted and evaluating bradycardia. Patient started on antibiotic treatment for UTI. Patient seen and examined at bedside. She is alert and oriented times 3. She has no complaints at this time. She denies lightheadedness, dizziness, chest pain, shortness of breath. She does have dysuria however this is chronic for her. She reported that cardiology has seen her this morning. - Exam Vitals: Temp Pulse Resp BP Pulse Ox 98.5 F 38 15 115/63 94 08/23/18 00:57 08/23/18 06:19 08/23/18 06:19 08/23/18 06:19 08/23/18 09:38 Exam: General: well developed obese female in no acute distress Head: normocephalic, no lesions, periorbital contusions Eyes: sclera anicteric, conjunctiva pink Neck: supple, trachea midline Lungs: CTA bilaterally, non-labored breathing. no wheezes, rales, or rhonchi Heart: Bradycardic +s1 +s2 No murmurs, clicks, or rubs GI: abdomen soft, non-tender, non-distended. normoactive bowel sounds Extremities: warm, radial pulses palpable and symmetrical. No cyanosis. Non- pitting edema of bilateral LEs. Neuro: A&Ox3. No focal deficits. No speech difficulty or abnormality. Skin: warm, dry, aforementioned periorbital contusions, contusion on lateral right hip, Stage 2 pressure ulcer on left buttock. Significant non-blanching er ythema at left pannus crease. - Assessment and Plan (1) UTI (urinary tract infection) Current Visit: Yes Status: Acute Assessment and Plan: Patient has chronic recurrent urinary tract infections for which Dr. Casper of urology helps to manage and she is on Keflex prophylactically. She still continues to have dysuria and incontinence. Hx of multiple UTIs with E coli urinalysis: blood, positive for nitrite and leukocyte esterase, WBC 50-100, RBC 5-15 Plan: -urine culture pending -Continue ceftriaxone day 2 as determined by prior urine culture sensitivity -continue nystatin for inguinal irritation and erythema (2) CKD (chronic kidney disease), stage III Current Visit: Yes Status: Chronic Assessment and Plan: Chronic kidney disease stage III following with the waste/materials exchange specialist Dr. Bates. Creatinine and GFR is at baseline -will continue to monitor serum creatinine and urine output -avoid nephrotoxic agents and renal dose medications (3) DM2 (diabetes mellitus, type 2) Current Visit: Yes Status: Chronic Assessment and Plan: History of known type II diabetes on insulin glucose is controlled however she has been noted to be hypoglycemic while in patient -Levemir has been discontinued and will continue the patient on sliding scale insulin -medications are ordered PRN should the patient become hypoglycemic -continue Accu checks -diabetic diet (4) Anemia due to chronic kidney disease Current Visit: Yes Status: Chronic Assessment and Plan: Chronic anemia that is secondary to her chronic kidney disease she reports. Hgb on admission 10.7 -Hemoglobin 9.2 (baseline hemoglobin around 10) -no obvious active bleeding -patient reported that she is up-to-date on her colonoscopies -Continue to monitor hemoglobin -continue home ferrous sulfate supplementation (5) Generalized weakness Current Visit: Yes Status: Acute (6) DVT prophylaxis Current Visit: Yes Status: Acute Assessment and Plan: SQ Heparin (7) Bradycardia Current Visit: Yes Status: Acute Assessment and Plan: Patient presented with bradycardia heart rate in the 20s. She had symptomatic bradycardia with lightheadedness, weakness. Patient reported that she has been known to have bradycardia heart rate typically 50s, however when she is sick and has been infection her heart rate will begin the 20s. She has never been hospitalized , not seen otm consultant, and has never discussed the possibility of a pacemaker. HR 50s chest x-ray demonstrating cardiomegaly and pulmonary vascular congestion TSH, troponin, magnesium, potassium all within normal limits EKG first-degree AV block -Cardiology following in monitoring heart rate. Will determine need for any ot her intervention. -Echocardiogram pending -Continue cardiac telemetry -holding home the mix due to bradycardia - Time Spent with Patient Total time spent is greater than 50% in coordination of care (as documented) at patient's floor/unit and/or counseling patient: Internal Medicine: Result - Labs CBC & Chem 7: 08/23/18 03:53 08/23/18 03:53 Labs: Short CBC 08/22/18 08/23/18 Range/Units 15:32 03:53 WBC 8.9 7.3 (4.3-11.1) K/mcL Hgb 10.7 L 9.2 L D (11.5-15.4) g/dL Hct 32.8 L 27.9 L (35.3-44.9) % Plt Count 355 277 (140-400) K/mcL Neutrophils # 7.1 5.7 (1.6-8.9) K/mcL BMP 08/22/18 08/23/18 15:32 03:53 Sodium 131 L 136 Potassium 4.6 4.3 Chloride 97 L 103 Carbon Dioxide 26 27 BUN 48 H 43 H Creatinine 1.39 H 1.16 Glucose 153 H 40 L* Calcium 9.3 8.5 L Cardiac Enzymes 08/22/18 08/23/18 Range/Units 15:32 09:23 Troponin I < 0.03 < 0.03 (< 0.04) ng/mL Liver Function 08/22/18 Range/Units 15:32 Total Bilirubin 0.3 (0.3-1.0) mg/dL AST 22 (13-39) Units/L ALT 21 (7-52) Units/L Alkaline Phosphatase 213 H (34-104) Units/L Albumin 3.8 (3.5-5.7) g/dL Urine 08/22/18 Range/Units 15:06 Urine Color Yellow (Yellow) Urine Clarity Turbid A (Clear) Urine pH 5.0 (5.0-8.0) pH Units Ur Specific [place] 1.021 (1.010-1.025) Urine Protein 30 H (Neg-Trace) mg/dL Urine Glucose (UA) Normal (Normal) mg/dL - Impressions Impressions 3D Reconstruction 08/22/18 00:00 IMPRESSION: No acute traumatic injury of the facial bones. D/ / 08/22/2018 17:01:42 Jhon Calvillo MD / miya Interpreting Provider: Jhon Calvillo MD Head CT 08/22/18 14:58 IMPRESSION: No acute intracranial abnormality. D/ / Deidra Ward MD / Deidra Ward MD Interpreting Provider: Deidra Ward MD Face CT 08/22/18 14:59 IMPRESSION: No acute traumatic injury of the facial bones. D/ / 08/22/2018 17:01:42 Jhon Calvillo MD / miya Interpreting Provider: Jhon Calvillo MD Chest X-Ray 08/22/18 15:00 IMPRESSION: Cardiomegaly and pulmonary vascular congestion. Bibasilar atelectasis or infiltrate. D/ / Vicenta Ramirez MD / Vicenta Ramirez MD Interpreting Provider: Vicenta Ramirez MD Consult Discharge Plan - Plan Referrals: Julian Breen Jr, MD [Primary Care Provider] - <Kierra Michel - Last Filed: 08/23/18 14:51> Hospitalist Progress Note - Encounter Date of Encounter: 08/23/18 - Exam Vitals: Temp Pulse Resp BP Pulse Ox 98.5 F 51 15 134/55 94 08/23/18 11:56 08/23/18 11:56 08/23/18 11:56 08/23/18 11:56 08/23/18 11:56 - Assessment and Plan (1) UTI (urinary tract infection) Current Visit: Yes Status: Acute (2) DM2 (diabetes mellitus, type 2) Current Visit: Yes Status: Chronic (3) CKD (chronic kidney disease), stage III Current Visit: Yes Status: Chronic (4) DVT prophylaxis Current Visit: Yes Status: Acute (5) Anemia due to chronic kidney disease Current Visit: Yes Status: Chronic (6) Generalized weakness Current Visit: Yes Status: Acute (7) Bradycardia Current Visit: Yes Status: Acute - Time Spent with Patient Total time spent is greater than 50% in coordination of care (as documented) at patient's floor/unit and/or counseling patient: Internal Medicine: Result - Labs CBC & Chem 7: 08/23/18 03:53 08/23/18 03:53 Labs: Short CBC 08/22/18 08/23/18 Range/Units 15:32 03:53 WBC 8.9 7.3 (4.3-11.1) K/mcL Hgb 10.7 L 9.2 L D (11.5-15.4) g/dL Hct 32.8 L 27.9 L (35.3-44.9) % Plt Count 355 277 (140-400) K/mcL Neutrophils # 7.1 5.7 (1.6-8.9) K/mcL BMP 08/22/18 08/23/18 15:32 03:53 Sodium 131 L 136 Potassium 4.6 4.3 Chloride 97 L 103 Carbon Dioxide 26 27 BUN 48 H 43 H Creatinine 1.39 H 1.16 Glucose 153 H 40 L* Calcium 9.3 8.5 L Cardiac Enzymes 08/22/18 08/23/18 08/23/18 Range/Units 15:32 09:23 13:43 Troponin I < 0.03 < 0.03 < 0.03 (< 0.04) ng/mL Liver Function 08/22/18 Range/Units 15:32 Total Bilirubin 0.3 (0.3-1.0) mg/dL AST 22 (13-39) Units/L ALT 21 (7-52) Units/L Alkaline Phosphatase 213 H (34-104) Units/L Albumin 3.8 (3.5-5.7) g/dL Urine 08/22/18 Range/Units 15:06 Urine Color Yellow (Yellow) Urine Clarity Turbid A (Clear) Urine pH 5.0 (5.0-8.0) pH Units Ur Specific [place] 1.021 (1.010-1.025) Urine Protein 30 H (Neg-Trace) mg/dL Urine Glucose (UA) Normal (Normal) mg/dL - Impressions Impressions 3D Reconstruction 08/22/18 00:00 IMPRESSION: No acute traumatic injury of the facial bones. D/ / 08/22/2018 17:01:42 Jhon Calvillo MD / imya Interpreting Provider: Jhon Calvillo MD Head CT 08/22/18 14:58 IMPRESSION: No acute intracranial abnormality. D/ / Deidra Ward MD / Deidra Ward MD Interpreting Provider: Deidra Ward MD Face CT 08/22/18 14:59 IMPRESSION: No acute traumatic injury of the facial bones. D/ / 08/22/2018 17:01:42 Jhon Calvillo MD / miya Interpreting Provider: Jhon Calvillo MD Chest X-Ray 08/22/18 15:00 IMPRESSION: Cardiomegaly and pulmonary vascular congestion. Bibasilar atelectasis or infiltrate. D/ / Vicenta Ramirez MD / Vicenta Ramirez MD Interpreting Provider: Vicenta Ramirez MD Echocardiogram 08/23/18 21:31 Impressions: Sinus bradycardia. HR 40s. LVEF 45-50%. Mildly dilated left ventricle. Low normal to mildly reduced LV systolic function. Mild left ventricular diastolic dysfunction. Mildly dilated right ventricle with normal function. Mild-moderate pulmonary hypertension. Estimated RVSP is 47 mmHg. No significant valvular dysfunction. Left Ventricular Wall Motion: Rest Echo Findings The apex, apical inferior, mid inferior, basal inferior, apical anterior, mid anterior, basal anterior, apical septal, mid inferior septal, basal inferior septal, apical lateral, mid anterior lateral, basal anterior lateral, mid anterior septal, mid inferior lateral, basal anterior septal and basal inferior lateral arenas were hypokinetic. Findings: Study Quality * Technically sub-optimal due to poor echocardiographic windows. ECG Findings * Sinus bradycardia. HR 40s. Left Ventricle * LVEF 45-50%. * Mildly dilated left ventricle. * Low normal to mildly reduced LV systolic function. * Mild left ventricular diastolic dysfunction. Right Ventricle * Mildly dilated right ventricle with normal function. Left Atrium * Moderately dilated left atrium. Right Atrium * Mildly dilated right atrium. Aortic Valve * Aortic valve not well visualized. * Mildly sclerotic aortic valve leaflets. * No aortic regurgitation. * No aortic stenosis. Mitral Valve * Mild mitral annular calcification * Mildly thickened mitral valve leaflets. * Trace mitral regurgitation. * No mitral stenosis. Tricuspid Valve * Normal tricuspid valve structure and function. * Trace tricuspid regurgitation. * Mild-moderate pulmonary hypertension. * Estimated RVSP is 47 mmHg. * Estimated RA pressure is 5 mmHg. Pulmonic Valve * Pulmonic valve not well visualized. * No pulmonic regurgitation. Aorta * Normally sized aortic root. Pericardium * The pericardium appears normal. IVC * The IVC is not well evaluated. Pulmonary Artery * Pulmonary artery not well visualized. - Attending Attestation I examined this patient and my medical decision-making was reviewed with the Resident Physician Dr Cheatham. I agree with the documented findings, disposition and treatment plan as described except to the extent set forth below. Ms Connor is admitted for bradycardia, weakness that is generalized. She presented with fall due to bl le weakness per her report without preceding symptoms awake, pleasant, asymptomatic, denies presyncope, palpitations, cp, pressure o rsob. She refused pacing overnight when HR 20s. Had bs 40 at time and she could tell she was hypoglycemic at that time. gen- alert, awake,appears stated age eyes- pupils equal round, eom intact and painless cv- andria rate 50s on beddside tele and normal rhythm, normal s1,s2, no murmurs appreciated, no le edema lungs- ctabl, no wheezing, rhonchi or crackles, norm resp effort abd- soft, non tender, non distended, + bs neuro- AAOx3 Bradycardia- cards eval, tele, tsh wnl, K/Mag at goal, bp normotensive, cont to monitor bs and long acting insulin discontinued,echo EF 45-50%, mild DD, mild ot mod pulm htn, no sig valve disease UA suspcious for UTI with hx recurrent UTIs- ucx pending, old cxs reviewed, hold home keflex and cont rocpehin DM- hold home long acting, cont ssi and prn hypoglycemics <Sofia Cheatham - Last Filed: 08/23/18 13:45> (1) UTI (urinary tract infection) Qualifiers: Urinary tract infection type: acute cystitis Hematuria presence: with hematuria Qualified Code(s): N30.01 - Acute cystitis with hematuria (3) DM2 (diabetes mellitus, type 2) Qualifiers: Diabetes mellitus biological science technician fish insulin use: with biological science technician fish use Diabetes mellitus complication status: with kidney complications Diabetes mellitus complication detail: with chronic kidney disease Chronic kidney disease stage: stage 3 (moderate) Qualified Code(s): E11.22 - Type 2 diabetes mellitus with diabetic chronic kidney disease; N18.3 - Chronic kidney disease, stage 3 (moderate); Z79.4 - shelter (current) use of insulin (4) Anemia due to chronic kidney disease Qualifiers: Chronic kidney disease stage: stage 3 (moderate) Qualified Code(s): N18.3 - Chronic kidney disease, stage 3 (moderate); D63.1 - Anemia in chronic kidney disease <Kierra Michel - Last Filed: 08/23/18 14:51> (1) UTI (urinary tract infection) Qualifiers: Urinary tract infection type: acute cystitis Hematuria presence: with penny turia Qualified Code(s): N30.01 - Acute cystitis with hematuria (2) DM2 (diabetes mellitus, type 2) Qualifiers: Diabetes mellitus biological science technician fish insulin use: with long-term use Diabetes mellitus complication status: with kidney complications Diabetes mellitus complication detail: with chronic kidney disease Chronic kidney disease stage: stage 3 (moderate) Qualified Code(s): E11.22 - Type 2 diabetes mellitus with diabetic chronic kidney disease; N18.3 - Chronic kidney disease, stage 3 (moderate); Z79.4 - shelter (current) use of insulin (5) Anemia due to chronic kidney disease Qualifiers: Chronic kidney disease stage: stage 3 (moderate) Qualified Code(s): N18.3 - Chronic kidney disease, stage 3 (moderate); D63.1 - Anemia in chronic kidney disease
[2018-08-23] MEDS: Nystatin POWDER 30 GM BOTTLE TP SCH ×3 (10:44→20:31)
[2018-08-23] MEDS ORDERED: Artificial Tears SOLN 15 ML BOTTLE BOTH EYES PRN (11:15)
--- NOTE | 2018-08-23 16:02 | Electrocardiograph Report ---
[address] [address] Test Date: 2018-08-22 Pat Name: Hanh Connor Department: EXAM12 Room: 2NE20 Gender: F Credit Risk Modeler: : 1935 Requested By: Dawson Peres Order Number: [id number] Reading MD: Jessica Lira Measurements Intervals [place] Rate: 49 P: -45 AR: 300 QRS: -24 QRSD: 137 T: 37 QT: 470 QTc: 425 Interpretive Statements Sinus bradycardia with first degree AV block Intraventricular conduction delay Poor R wave progression Electronically Signed On 08-23-2018 16:00:33 EST by Jessica Lira
--- NOTE | 2018-08-23 16:16 | Electrocardiograph Report ---
[address] [address] Test Date: 2018-08-22 Pat Name: Hanh Connor Department: EXAM12 Room: 2NE20 Gender: F Executive Consultant: : 1935 Requested By: Phill Valdez Order Number: [id number] Reading MD: Jessica Lira Measurements Intervals [place] Rate: 45 P: 254 CA: 285 QRS: -42 QRSD: 138 T: 55 QT: 512 QTc: 443 Interpretive Statements Sinus bradycardia with first degree AV block Intraventricular conduction delay Poor R wave progression Electronically Signed On 08-23-2018 16:14:15 EST by Jessica Lira
[2018-08-23] MEDS: cefTRIAXone 1,000 MG in Water for inj. (sterile) 20 ML 10 ML IVP SCH (16:43)
[2018-08-23] MEDS: (Pentosan Polysulfate Sodium [Elmiron] 100 MG) PO SCH ×2 (19:06→20:30)
[2018-08-24] MEDS: Acetaminophen 325 MG TABLET PO SCH ×3 (01:02→16:59)
[2018-08-24] MEDS: *HR* Heparin 5,000 UNIT/ML VIAL SQ SCH ×3 (05:10→23:02)
[2018-08-24 05:13] LABS: Basophils # 0.1 K/mcL (0.0-0.2); Eosinophils # 0.2 K/mcL (0.0-0.6); Eosinophils % 2.9 %; Hematocrit 28.6 % (35.3-44.9); Hemoglobin 9.4 g/dL (11.5-15.4); Immature Granulocytes % 0.4 % (0-4); Lymphocytes # 1.3 K/mcL (0.6-4.6); Lymphocytes % 24.8 %; Mean Corpuscular HGB Conc 32.9 g/dL (31.6-35.5); Mean Corpuscular Hemoglobin 29.1 pg (28.0-33.3); Mean Corpuscular Volume 88.5 fL (83.0-100.0); Mean Platelet Volume 11.3 fL (9.4-12.4); Monocytes # 0.5 K/mcL (0.0-1.3); Monocytes % 8.8 %; Neutrophils # 3.3 K/mcL (1.6-8.9); Platelet Count 310 K/mcL (140-400); Red Blood Count 3.23 M/mcL (3.82-4.97); Red Cell Distribution Width 15.2 % (11.5-14.5); Segmented Neutrophils % 62.1 %
[2018-08-24 05:30] LABS: Calcium 8.9 mg/dL (8.6-10.3); Potassium 4.8 mEq/L (3.5-5.1)
--- NOTE | 2018-08-24 07:18 | Cardiology Progress Note ---
Addendum entered and electronically signed by Dai Haley DO 08/24/18 09:58: I examined this patient and my medical decision-making was reviewed with the CN P. I agree with the documented findings, disposition and treatment plan. Ms. Connor presents with a mechanical fall. Noted to be bradycardic which is not new. Telemetry reviewed - NSR, first degree AVB, blocked PACs. Recommend 2 week ECAT at discharge. In regards to Echo demonstrating LVEF 45-50% (previously 55%) recommend outpatient Cardiology evaluation and consideration for stress testing. The patient is chest pain free, troponins negative, no acute ECG findings. Will sign off. Please call with questions. Addendum entered and electronically signed by Omar Cope CNP 08/24/18 08:47: Telemetry strips reviewed and discussed with Dr. Haley, no significant events noted. Patient with sinus bradycardia and first-degree AV block with blocked P ACs. No clinical indication for pacemaker. Will order to week ECAT monitor be applied at discharge. EF 45-50%, previously 55%. Chest pain-free with negative troponins. Can consider outpatient stress testing at follow-up if clinically appropriate. Cardiology signed off, reconsult as needed, follow-up arranged. Original Note: Date of Encounter: 08/24/18 Time of Encounter: 07:20 Assessment and Plan (1) Bradycardia Current Visit: Yes Status: Acute Per Cardiology: Patient reports mechanical fall about one week ago. Denies any syncopal events. Average heart rate on telemetry the past 12 hours 51, currently sinus bradycardia with first-degree AV block in the 50s. Lowest heart rate noted to be 47. Echo showed: Impressions: Sinus bradycardia. HR 40s. LVEF 45-50%. Mildly dilated left ventricle. Low normal to mildly reduced LV systolic function. Mild left ventricular diastolic dysfunction. Mildly dilated right ventricle with normal function. Mild-moderate pulmonary hypertension. Estimated RVSP is 47 mmHg. No significant valvular dysfunction. Previous EF 55% 2015. Chest pain-free, troponins negative. Not on beta block er. TSH and electrolytes stable. Will review telemetry strips with Dr. Haley. Of note patient is DNR/CCA/DNI. Discussion w patient/family: The assessment and plan as outlined above was discussed with the patient who expressed understanding and agreement. All questions were answered. Thank you for involving us in the care of your patient. Please call with any questions. Subjective Principal diagnosis: Bradycardia Interval history: Patient denies any concerns or complaints overnight. She denies any chest pain, shortness of breath, palpitations. Reports plans to go to rehabilitation facility at time of discharge. She reports a fall about a week ago, denied any syncope or loss of consciousness. She reports chronic history of low heart rates in the 50s. Objective Vital Signs, Last 4 Hours Temp Pulse Resp BP Pulse Ox 08/24/18 04:00 96.9 F L 57 14 141/49 94 General: Conversant, No Apparent Distress HEENT: Normocephaly, Mucus Membranes Moist, Other (Left orbital area and forehead with ecchymosis) Neck: No JVD, Normal carotid pulses Cardiac: Reg Rate and Rhythm, Normal S1 and S2, No Murmur Lungs: Normal Breath Sounds, No Wheeze, Rales, Rhonchi Neuro: Alert and responsive, No focal deficits noted Abdomen: Soft, Non-Tender Skin: No rashes noted on visualized skin Musculoskeletal: No Chest Wall Tenderness Extremities: No Clubbing, No Cyanosis, No Edema, Normal Pulses Results 08/24/18 04:36 08/24/18 04:36 Lab Results Laboratory Tests 08/22/18 08/22/18 08/23/18 15:32 15:32 03:53 Hgb 10.7 L Creatinine Est GFR (Non-Af Amer) Magnesium Troponin I < 0.03 TSH 3.789 08/23/18 08/23/18 08/23/18 09:23 09:23 13:43 Hgb Creatinine Est GFR (Non-Af Amer) Magnesium 2.2 Troponin I < 0.03 < 0.03 TSH 08/24/18 08/24/18 04:36 04:36 Hgb 9.4 L Creatinine 1.39 H Est GFR (Non-Af Amer) 36 L Magnesium Troponin I TSH ITS Impressions 3D Reconstruction 08/22/18 00:00 IMPRESSION: No acute traumatic injury of the facial bones. D/ / 08/22/2018 17:01:42 Jhon Calvillo MD / miya Interpreting Provider: Jhon Calvillo MD Head CT 08/22/18 14:58 IMPRESSION: No acute intracranial abnormality. D/ / Deidra Ward MD / Deidra Ward MD Interpreting Provider: Deidra Ward MD Face CT 08/22/18 14:59 IMPRESSION: No acute traumatic injury of the facial bones. D/ / 08/22/2018 17:01:42 Jhon Calvillo MD / miya Interpreting Provider: Jhon Calvillo MD Chest X-Ray 08/22/18 15:00 IMPRESSION: Cardiomegaly and pulmonary vascular congestion. Bibasilar atelectasis or infiltrate. D/ / Vicenta Ramirez MD / Vicenta Ramirez MD Interpreting Provider: Vicenta Ramirez MD Echocardiogram 08/23/18 21:31 Impressions: Sinus bradycardia. HR 40s. LVEF 45-50%. Mildly dilated left ventricle. Low normal to mildly reduced LV systolic function. Mild left ventricular diastolic dysfunction. Mildly dilated right ventricle with normal function. Mild-moderate pulmonary hypertension. Estimated RVSP is 47 mmHg. No significant valvular dysfunction. Left Ventricular Wall Motion: Rest Echo Findings The apex, apical inferior, mid inferior, basal inferior, apical anterior, mid anterior, basal anterior, apical septal, mid inferior septal, basal inferior septal, apical lateral, mid anterior lateral, basal anterior lateral, mid anterior septal, mid inferior lateral, basal anterior septal and basal inferior lateral arenas were hypokinetic. Findings: Study Quality * Technically sub-optimal due to poor echocardiographic windows. ECG Findings * Sinus bradycardia. HR 40s. Left Ventricle * LVEF 45-50%. * Mildly dilated left ventricle. * Low normal to mildly reduced LV systolic function. * Mild left ventricular diastolic dysfunction. Right Ventricle * Mildly dilated right ventricle with normal function. Left Atrium * Moderately dilated left atrium. Right Atrium * Mildly dilated right atrium. Aortic Valve * Aortic valve not well visualized. * Mildly sclerotic aortic valve leaflets. * No aortic regurgitation. * No aortic stenosis. Mitral Valve * Mild mitral annular calcification * Mildly thickened mitral valve leaflets. * Trace mitral regurgitation. * No mitral stenosis. Tricuspid Valve * Normal tricuspid valve structure and function. * Trace tricuspid regurgitation. * Mild-moderate pulmonary hypertension. * Estimated RVSP is 47 mmHg. * Estimated RA pressure is 5 mmHg. Pulmonic Valve * Pulmonic valve not well visualized. * No pulmonic regurgitation. Aorta * Normally sized aortic root. Pericardium * The pericardium appears normal. IVC * The IVC is not well evaluated. Pulmonary Artery * Pulmonary artery not well visualized. - Imaging and Cardiology Echo: report reviewed - EKG Interpretation EKG results cardiology: other (Average heart rate the past 12 hours 51, sinus bradycardia with first-degree AV block) Consult Discharge Plan - Plan Referrals: Julian Breen Jr, MD [Primary Care Provider] -
[2018-08-24] MEDS: Cholecalciferol (D-3) 1,000 UNIT TABLET PO SCH (08:07)
[2018-08-24] MEDS: Gabapentin 100 MG CAPSULE PO SCH ×4 (08:08→23:02)
[2018-08-24] MEDS: Insulin LISPRO 300 UNITS/3 ML VIAL SQ SCH ×5 (08:08→23:15)
[2018-08-24] MEDS: Bumetanide 1 MG TABLET PO SCH (08:08)
[2018-08-24] MEDS: Nystatin POWDER 30 GM BOTTLE TP SCH ×3 (08:09→20:46)
[2018-08-24] MEDS: (Pentosan Polysulfate Sodium [Elmiron] 100 MG) PO SCH ×3 (08:09→20:46)
--- NOTE | 2018-08-24 10:57 | Internal Med Progress Note ---
<Kierra Michel - Last Filed: 08/24/18 13:24> Hospitalist Progress Note - Encounter Date of Encounter: 08/24/18 - Exam Vitals: Temp Pulse Resp BP Pulse Ox 98.0 F 50 16 127/97 96 08/24/18 11:45 08/24/18 11:45 08/24/18 11:45 08/24/18 11:45 08/24/18 11:45 - Assessment and Plan (1) UTI (urinary tract infection) Current Visit: Yes Status: Acute (2) DM2 (diabetes mellitus, type 2) Current Visit: Yes Status: Chronic (3) CKD (chronic kidney disease), stage III Current Visit: Yes Status: Chronic (4) DVT prophylaxis Current Visit: Yes Status: Acute (5) Anemia due to chronic kidney disease Current Visit: Yes Status: Chronic (6) Generalized weakness Current Visit: Yes Status: Acute (7) Bradycardia Current Visit: Yes Status: Acute - Time Spent with Patient Total time spent is greater than 50% in coordination of care (as documented) at patient's floor/unit and/or counseling patient: Internal Medicine: Result - Labs CBC & Chem 7: 08/24/18 04:36 08/24/18 04:36 Labs: Short CBC 08/24/18 Range/Units 04:36 WBC 5.2 (4.3-11.1) K/mcL Hgb 9.4 L (11.5-15.4) g/dL Hct 28.6 L (35.3-44.9) % Plt Count 310 (140-400) K/mcL Neutrophils # 3.3 (1.6-8.9) K/mcL BMP 08/24/18 04:36 Sodium 137 Potassium 4.8 Chloride 105 Carbon Dioxide 27 BUN 41 H Creatinine 1.39 H Glucose 64 L Calcium 8.9 Cardiac Enzymes 08/23/18 Range/Units 13:43 Troponin I < 0.03 (< 0.04) ng/mL - Impressions Impressions Echocardiogram 08/23/18 21:31 Impressions: Sinus bradycardia. HR 40s. LVEF 45-50%. Mildly dilated left ventricle. Low normal to mildly reduced LV systolic function. Mild left ventricular diastolic dysfunction. Mildly dilated right ventricle with normal function. Mild-moderate pulmonary hypertension. Estimated RVSP is 47 mmHg. No significant valvular dysfunction. Left Ventricular Wall Motion: Rest Echo Findings The apex, apical inferior, mid inferior, basal inferior, apical anterior, mid anterior, basal anterior, apical septal, mid inferior septal, basal inferior septal, apical lateral, mid anterior lateral, basal anterior lateral, mid anterior septal, mid inferior lateral, basal anterior septal and basal inferior lateral arenas were hypokinetic. Findings: Study Quality * Technically sub-optimal due to poor echocardiographic windows. ECG Findings * Sinus bradycardia. HR 40s. Left Ventricle * LVEF 45-50%. * Mildly dilated left ventricle. * Low normal to mildly reduced LV systolic function. * Mild left ventricular diastolic dysfunction. Right Ventricle * Mildly dilated right ventricle with normal function. Left Atrium * Moderately dilated left atrium. Right Atrium * Mildly dilated right atrium. Aortic Valve * Aortic valve not well visualized. * Mildly sclerotic aortic valve leaflets. * No aortic regurgitation. * No aortic stenosis. Mitral Valve * Mild mitral annular calcification * Mildly thickened mitral valve leaflets. * Trace mitral regurgitation. * No mitral stenosis. Tricuspid Valve * Normal tricuspid valve structure and function. * Trace tricuspid regurgitation. * Mild-moderate pulmonary hypertension. * Estimated RVSP is 47 mmHg. * Estimated RA pressure is 5 mmHg. Pulmonic Valve * Pulmonic valve not well visualized. * No pulmonic regurgitation. Aorta * Normally sized aortic root. Pericardium * The pericardium appears normal. IVC * The IVC is not well evaluated. Pulmonary Artery * Pulmonary artery not well visualized. Consult Discharge Plan - Plan Referrals: Julian Breen Jr, MD [Primary Care Provider] - - Attending Attestation I examined this patient and my medical decision-making was reviewed with the Resident Physician Dr Cheatham. I agree with the documented findings, disposition and treatment plan as described except to the extent set forth below. Ms Connor is admitted for bradycardia, weakness that is generalized. She presented with fall due to bl le weakness per her report without preceding symptoms awake, pleasant, denies palpitations, lightheadedness or dizziness. no cp or sob. generalized weakness is stable and she is agreeable to ecf as recommended by pt/ot on dc. gen- alert, awake,appears stated age eyes- pupils equal round cv- andrai rate 50s on bedside tele and normal rhythm, normal s1,s2, no murmurs appreciated, no le edema lungs- ctabl, no wheezing, rhonchi or crackles, norm resp effort on ra neuro- AAOx3 Bradycardia- cards eval, NSR/first degree AVB/chronic in nautre, cards will place 2 week holter prior to dc, no indication for pacer, echo with EF 45-50% previously 55%--cards will see outpt and consider outpt stress testing gnr UTI with hx recurrent UTIs- ucx pending sensitivities, old cxs reviewed, hold home keflex and cont rocpehin, await sensitivities prior to dc given hx, she may fu with her urology physician on dc DM with hypoglycemic episodes- hold home long acting, cont ssi and prn hypog lycemics CKD with creat at [facility]- given increase today held bumex as she is net neg 1.4 L this admit without dosing, check creat in am dispo will be to [facility],hopefully tomorrow if has holter, creat is stable and ucx results further diagnoses and treatment as documented in resident note <Sofia Cheatham - Last Filed: 08/24/18 13:52> Hospitalist Progress Note - Encounter Date of Encounter: 08/24/18 Time of Encounter: 10:45 - Subjective Interval History: Ms. Connor is a 83 year old female with past medical history of CKD Stage 3, anemia, and DM2 on insulin, recurrent urinary tract infections who presented to [facility] complaining of weakness. She also reported and mechanical fall at home. She had been increasingly week for the past couple days with associated lightheadedness. She was found to be bradycardiac with heart rate in the 20s. EKG demonstrated first-degree AV block. She was noted to have a urinary tract infection. Cardiology consulted and evaluating bradycardia. Patient started on antibiotic treatment for UTI. Patient seen and examined at bedside. She is alert and oriented times 3. She has no complaints at this time other than weakness. She denies lightheadedness, dizziness, chest pain, shortness of breath. She does have dysuria however this is chronic for her. She reported that cardiology has seen her this morning and told her that she will have a holter monitor for 2 weeks. - Exam Vitals: Temp Pulse Resp BP Pulse Ox 97.5 F L 54 16 144/53 96 08/24/18 07:45 08/24/18 07:45 08/24/18 07:45 08/24/18 07:45 08/24/18 07:45 Exam: General: well developed obese female in no acute distress Head: normocephalic, no lesions, periorbital contusions Eyes: sclera anicteric, conjunctiva pink Neck: supple, trachea midline Lungs: CTA bilaterally, non-labored breathing. no wheezes, rales, or rhonchi Heart: Bradycardic +s1 +s2 No murmurs, clicks, or rubs GI: abdomen soft, non-tender, non-distended. normoactive bowel sounds Extremities: warm, radial pulses palpable and symmetrical. No cyanosis. Non- pitting edema of bilateral LEs. Neuro: A&Ox3. No focal deficits. No speech difficulty or abnormality. Skin: warm, dry, aforementioned periorbital contusions, contusion on lateral right hip, Stage 2 pressure ulcer on left buttock. Significant non-blanching erythema at left pannus crease. - Assessment and Plan (1) Bradycardia Current Visit: Yes Status: Acute Assessment and Plan: Patient presented with bradycardia heart rate in the 20s. She had symptomatic bradycardia with lightheadedness, weakness. Patient reported that she has been known to have bradycardia heart rate typically 50s, however when she is sick and has been infection her heart rate will begin the 20s. She has never been hospitalized , not seen title i paraprofessional, and has never discussed the possibility of a pacemaker. HR 50s stable chest x-ray demonstrating cardiomegaly and pulmonary vascular congestion TSH, troponin, magnesium, potassium all within normal limits EKG first-degree AV block echocardiogram demonstrating LVEF 45-50%, mildly reduced systolic function, mild diastolic dysfunction, mild moderate pulmonary hypertension with estimated RVS/P 47mmHg -Cardiology evaluated and recommends that the patient be discharged with a holter monitor for 2 weeks and then will follow-up outpatient. -Continue cardiac telemetry (2) UTI (urinary tract infection) Current Visit: Yes Status: Acute Assessment and Plan: Patient has chronic recurrent urinary tract infections for which Dr. Casper of urology helps to manage and she is on Keflex prophylactically. She still continues to have dysuria and incontinence. Afebrile, WBC WNL Hx of multiple UTIs with E coli urinalysis: blood, positive for nitrite and leukocyte esterase, WBC 50-100, RBC 5-15 urine culture growing GNR Plan: -urine culture sensitivity pending -Continue ceftriaxone day 3 as determined by prior urine culture sensitivity -continue nystatin for inguinal irritation and erythema (3) CKD (chronic kidney disease), stage III Current Visit: Yes Status: Chronic Assessment and Plan: Chronic kidney disease stage III following with the gift manager Dr. Bates. Creatinine and GFR is at baseline. Creatinine at admission 1.39 appropriate urine output -will continue to monitor serum creatinine and urine output -avoid nephrotoxic agents and renal dose medications (4) DM2 (diabetes mellitus, type 2) Current Visit: Yes Status: Chronic Assessment and Plan: History of known type II diabetes on insulin glucose is controlled however she has been noted to be hypoglycemic while in patient -Patient still continues to have episodes of hypoglycemia. -Levemir has been discontinued and will continue the patient on sliding scale insulin -medications are ordered PRN should the patient become hypoglycemic -continue Accu checks -diabetic diet (5) Anemia due to chronic kidney disease Current Visit: Yes Status: Chronic Assessment and Plan: Chronic anemia that is secondary to her chronic kidney disease she reports. Hgb on admission 10.7 -Hemoglobin 9.4 (baseline hemoglobin around 10) -no obvious active bleeding -patient reported that she is up-to-date on her colonoscopies -Continue to monitor hemoglobin -continue home ferrous sulfate supplementation (6) Generalized weakness Current Visit: Yes Status: Acute Assessment and Plan: Likely due to physical deconditioning with multiple health issues. -PT/OT ordered -So social releases has set up for the patient to be discharged to [facility] for continued PT/OT once patient medically able[facility] (7) DVT prophylaxis Current Visit: Yes Status: Acute Assessment and Plan: SQ Heparin - Time Spent with Patient Total time spent is greater than 50% in coordination of care (as documented) at patient's floor/unit and/or counseling patient: Internal Medicine: Result - Labs CBC & Chem 7: 08/24/18 04:36 08/24/18 04:36 Labs: Short CBC 08/24/18 Range/Units 04:36 WBC 5.2 (4.3-11.1) K/mcL Hgb 9.4 L (11.5-15.4) g/dL Hct 28.6 L (35.3-44.9) % Plt Count 310 (140-400) K/mcL Neutrophils # 3.3 (1.6-8.9) K/mcL [facility] 08/24/18 04:36 Sodium 137 Potassium 4.8 Chloride 105 Carbon Dioxide 27 BUN 41 H Creatinine 1.39 H Glucose 64 L Calcium 8.9 Cardiac Enzymes 08/23/18 Range/Units 13:43 Troponin I < 0.03 (< 0.04) ng/mL - Impressions Impressions Echocardiogram 08/23/18 21:31 Impressions: Sinus bradycardia. HR 40s. LVEF 45-50%. Mildly dilated left ventricle. Low normal to mildly reduced LV systolic function. Mild left ventricular diastolic dysfunction. Mildly dilated right ventricle with normal function. Mild-moderate pulmonary hypertension. Estimated RVSP is 47 mmHg. No significant valvular dysfunction. Left Ventricular Wall Motion: Rest Echo Findings The apex, apical inferior, mid inferior, basal inferior, apical anterior, mid anterior, basal anterior, apical septal, mid inferior septal, basal inferior septal, apical lateral, mid anterior lateral, basal anterior lateral, mid anterior septal, mid inferior lateral, basal anterior septal and basal inferior lateral arenas were hypokinetic. Findings: Study Quality * Technically sub-optimal due to poor echocardiographic windows. ECG Findings * Sinus bradycardia. HR 40s. Left Ventricle * LVEF 45-50%. * Mildly dilated left ventricle. * Low normal to mildly reduced LV systolic function. * Mild left ventricular diastolic dysfunction. Right Ventricle * Mildly dilated right ventricle with normal function. Left Atrium * Moderately dilated left atrium. Right Atrium * Mildly dilated right atrium. Aortic Valve * Aortic valve not well visualized. * Mildly sclerotic aortic valve leaflets. * No aortic regurgitation. * No aortic stenosis. Mitral Valve * Mild mitral annular calcification * Mildly thickened mitral valve leaflets. * Trace mitral regurgitation. * No mitral stenosis. Tricuspid Valve * Normal tricuspid valve structure and function. * Trace tricuspid regurgitation. * Mild-moderate pulmonary hypertension. * Estimated RVSP is 47 mmHg. * Estimated RA pressure is 5 mmHg. Pulmonic Valve * Pulmonic valve not well visualized. * No pulmonic regurgitation. Aorta * Normally sized aortic root. Pericardium * The pericardium appears normal. IVC * The IVC is not well evaluated. Pulmonary Artery * Pulmonary artery not well visualized. <Kierra Michel - Last Filed: 08/24/18 13:24> (1) UTI (urinary tract infection) Qualifiers: Urinary tract infection type: acute cystitis Hematuria presence: with hematuria Qualified Code(s): N30.01 - Acute cystitis with hematuria (2) DM2 (diabetes mellitus, type 2) Qualifiers: Diabetes mellitus longterm insulin use: with petroleum terminal plant operator use Diabetes mellitus complication status: with kidney complications Diabetes mellitus complication detail: with chronic kidney disease Chronic kidney disease stage: stage 3 (moderate) Qualified Code(s): E11.22 - Type 2 diabetes mellitus with diabetic chronic kidney disease; N18.3 - Chronic kidney disease, stage 3 (moderate); Z79 .4 - manager terminal (current) use of insulin (5) Anemia due to chronic kidney disease Qualifiers: Chronic kidney disease stage: stage 3 (moderate) Qualified Code(s): N18.3 - Chronic kidney disease, stage 3 (moderate); D63.1 - Anemia in chronic kidney disease <Sofia Cheatham - Last Filed: 08/24/18 13:52> (2) UTI (urinary tract infection) Qualifiers: Urinary tract infection type: acute cystitis Hematuria presence: with hematuria Qualified Code(s): N30.01 - Acute cystitis with hematuria (4) DM2 (diabetes mellitus, type 2) Qualifiers: Diabetes mellitus petroleum terminal plant operator insulin use: with petroleum terminal plant operator use Diabetes mellitus complication status: with kidney complications Diabetes mellitus complication detail: with chronic kidney disease Chronic kidney disease stage: stage 3 (moderate) Qualified Code(s): E11.22 - Type 2 diabetes mellitus with diabetic chronic kidney disease; N18.3 - Chronic kidney disease, stage 3 (moderate); Z79.4 - longterm (current) use of insulin (5) Anemia due to chronic kidney disease Qualifiers: Chronic kidney disease stage: stage 3 (moderate) Qualified Code(s): N18.3 - Chronic kidney disease, stage 3 (moderate); D63.1 - Anemia in chronic kidney disease
[2018-08-24] MEDS: cefTRIAXone 1,000 MG in Water for inj. (sterile) 20 ML 10 ML IVP SCH (17:00)
[2018-08-25] MEDS: Acetaminophen 325 MG TABLET PO SCH ×2 (00:25→08:08)
[2018-08-25] MEDS: *HR* Heparin 5,000 UNIT/ML VIAL SQ SCH ×2 (05:15→13:45)
[2018-08-25 06:51] LABS: Basophils % 0.7 %; Eosinophils # 0.2 K/mcL (0.0-0.6); Eosinophils % 3.5 %; Hematocrit 31.7 % (35.3-44.9); Hemoglobin 10.5 g/dL (11.5-15.4); Immature Granulocytes % 0.3 % (0-4); Lymphocytes # 1.6 K/mcL (0.6-4.6); Lymphocytes % 26.3 %; Mean Corpuscular HGB Conc 33.1 g/dL (31.6-35.5); Mean Corpuscular Hemoglobin 29.4 pg (28.0-33.3); Mean Corpuscular Volume 88.8 fL (83.0-100.0); Monocytes # 0.4 K/mcL (0.0-1.3); Monocytes % 7.3 %; Neutrophils # 3.7 K/mcL (1.6-8.9); Platelet Count 339 K/mcL (140-400); Red Blood Count 3.57 M/mcL (3.82-4.97); Red Cell Distribution Width 15.5 % (11.5-14.5); Segmented Neutrophils % 61.9 %
[2018-08-25 07:12] LABS: Calcium 9.2 mg/dL (8.6-10.3); Potassium 4.3 mEq/L (3.5-5.1)
[2018-08-25] MEDS: Insulin LISPRO 300 UNITS/3 ML VIAL SQ SCH ×2 (07:57→11:52)
[2018-08-25] MEDS: Gabapentin 100 MG CAPSULE PO SCH ×2 (08:09→13:38)
[2018-08-25] MEDS: Nystatin POWDER 30 GM BOTTLE TP SCH ×2 (08:09→13:45)
[2018-08-25] MEDS: (Pentosan Polysulfate Sodium [Elmiron] 100 MG) PO SCH ×2 (08:09→13:45)
[2018-08-25] MEDS: Cholecalciferol (D-3) 1,000 UNIT TABLET PO SCH (08:09)
--- NOTE | 2018-08-25 09:45 | Discharge Summary ---
<Sofia Cheatham - Last Filed: 08/25/18 13:25> - NOTES TO OUTPATIENT PROVIDER Notes to Outpatient Provider: - Admitted with symptomatic bradycardia in 20s. During her admission she remained Hr in the 50s. Cardiology evaluated and recommended holter monitor for 2 weeks then follow up. -EKG first-degree AV block. -echocardiogram demonstrating LVEF 45-50%, mildly reduced systolic function, mild diastolic dysfunction, mild moderate pulmonary hypertension with estimated RVS/P 47mmHg. - urinalysis demonstrated UTI with GNR, sensitive to Macrobid. Discharged with 4 more days to Macrobid to complete treatment. Follows with the urologist Dr. Casper due to chronic recurrent urinary tract infections. She was previously on Keflex prophylactically. -Patient takes Bumex however this is been held due to slight increase in creatinine that is around baseline. Ordered for creatinine to be checked into days and then restarted at the alf physician's discretion. -Patient to go to [facility] for PT/OT. -Patient found to be anemic however she was at her baseline. Continued home ferrous sulfate supplementation. Orders not resulted at time of discharge: Pending orders 08/24/18 08:45 ECG event monitor 2 weeks [ECG] Routine 08/25/18 09:42 ECG 24 holter monitor setup [ECG] DAILY 08/26/18 09:42 ECG 24 holter monitor setup [ECG] DAILY 08/27/18 09:42 ECG 24 holter monitor setup [ECG] DAILY 08/28/18 09:42 ECG 24 holter monitor setup [ECG] DAILY 08/29/18 09:42 ECG 24 holter monitor setup [ECG] DAILY 08/30/18 09:42 ECG 24 holter monitor setup [ECG] DAILY 08/31/18 09:42 ECG 24 holter monitor setup [ECG] DAILY 09/01/18 09:42 ECG 24 holter monitor setup [ECG] DAILY 09/02/18 09:42 ECG 24 holter monitor setup [ECG] DAILY 09/03/18 09:42 ECG 24 holter monitor setup [ECG] DAILY 09/04/18 09:42 ECG 24 holter monitor setup [ECG] DAILY 09/05/18 09:42 ECG 24 holter monitor setup [ECG] DAILY 09/06/18 09:42 ECG 24 holter monitor setup [ECG] DAILY 09/07/18 09:42 ECG 24 holter monitor setup [ECG] DAILY 09/08/18 09:42 ECG 24 holter monitor setup [ECG] DAILY Date of Encounter: 08/25/18 Time of Encounter: 09:44 - Discharge Diagnosis (1) UTI (urinary tract infection) Priority: Secondary Status: Acute Qualifiers: Urinary tract infection type: acute cystitis Hematuria presence: with hematuria Qualified Code(s): N30.01 - Acute cystitis with hematuria (2) CKD (chronic kidney disease), stage III Priority: Secondary Status: Chronic (3) DM2 (diabetes mellitus, type 2) Priority: Secondary Status: Chronic Assessment and Plan: Patient was noted to be hypoglycemic on admission. Her tresiba but insulin was stopped and she was started on low dose sliding scale insulin instead. She did not require very much insulin to keep her glucose low so her trusty bow has been stopped and she will be discharged to the alf facility with sliding scale insulin. Low dose sliding scale insulin for TIDAC and HS. Fingerstick blood glucose insulin units 141-180mg/dl 2 units/SQ 181-220mg/dl 4 units/SQ 221-260mg/dl 6 units/SQ 261-300mg/dl 8units/SQ 301-350mg/dl 10units/SQ 351-400mg/dl 12units/SQ greater than 400mg/dl 14units/SQ Qualifiers: Diabetes mellitus mcfp insulin use: with intermediate project manager use Diabetes mellitus complication status: with kidney complications Diabetes mellitus complication detail: with chronic kidney disease Chronic kidney disease stage: stage 3 (moderate) Qualified Code(s): E11.22 - Type 2 diabetes mellitus with diabetic chronic kidney disease; N18.3 - Chronic kidney disease, stage 3 (moderate); 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 Connor is a 83 year old female with past medical history of CKD Stage 3, anemia, and DM2 on insulin, recurrent urinary tract infections who presented to [facility] complaining of weakness. She also reported and mechanical fall at home. She had been increasingly week for the past couple days with associated lightheadedness. She was found to be bradycardiac with heart rate in the 20s. EKG demonstrated first-degree AV block. Cardiology consulted and evaluating bradycardia. During admission her heart rate remained in the 50s. Cardiology arranged for holter monitor for 2 weeks and then will follow-up outpatient. Due to her recent fall head CT and face CT were ordered and negative for acute intracranial process. She became hypoglycemic with glucose in the 40s. She was continued on low dose sliding scale insulin as she was not requiring a large amount of insulin for her glucose. Her home insulin tressiba was held. She was noted to have a urinary tract infection growing GNR. She was started on Rocephin. She has a history of chronic recurrent urinary tract infections for which she follows with the urologist Dr. Casper and whom had her on Keflex prophylactically. Chest x-ray demonstrating cardiomegaly and pulmonary vascular congestion. TSH, troponin, magnesium, potassium all within normal limits. Echocardiogram demonstrating LVEF 45-50%, mildly reduced systolic function, mild diastolic dysfunction, mild moderate pulmonary hypertension with estimated RVS/P 47mmHg. Her creatinine was slightly increased which is around her baseline so her Bumex was held. A repeat BMP into days is ordered to evaluate the creatinine and the alf physician can reassess for continuing her Bumex. Upon discharge she was afebrile, WBC normal. She was given a prescription of Macrobid for 4 days to complete treatment of urinary tract infection. She has a follow-up appointment with cardiology for the bradycardia. Due to her having low insulin requirements she will be discharged to the alf with sliding scale insulin 4 AM and p.m. she is to get a alf for PT/OT. Upon discharge she was alert and oriented times 3 and stated clear understanding of the treatment and plan. Insulin regimen is as follows: Continue with the low dose sliding scale insulin for TIDAC and HS Low dose sliding scale insulin for TIDAC and HS. Fingerstick blood glucose insulin units 141-180mg/dl 2 units/SQ 181-220mg/dl 4 units/SQ 221-260mg/dl 6 units/SQ 261-300mg/dl 8units/SQ 301-350mg/dl 10units/SQ 351-400mg/dl 12units/SQ greater than 400mg/dl 14units/SQ Discharge discussed with: patient, nurse - Time Spent with Patient Total time spent providing and/or coordinating discharge services: Greater than 30 minutes - Discharge Medications Prescriptions: Nitrofurantoin (BID) [Macrobid] 100 mg PO BID #8 capsule Home Medications: Cholecalciferol (Vitamin D3) [Vitamin D] 4,000 unit PO DAILY 07/21/15 [History] Gabapentin [Neurontin] 100 mg PO QID 07/21/15 [History] Omeprazole [PriLOSEC] 20 mg PO DAILY 07/21/15 [History] Pentosan Polysulfate Sodium [Elmiron] 100 mg PO TID 07/21/15 [History] Acetaminophen [Tylenol] 1,300 mg PO Q8H 11/08/15 [History] Baclofen 10 mg PO QAM 10/05/16 [History] Baclofen 20 mg PO HS 10/05/16 [History] Ferrous Sulfate [Iron] 650 mg PO DAILY 06/13/18 [History] Insulin LISPRO [HumaLOG] 0 units SQ HS vial 08/25/18 [Rx] Insulin LISPRO [HumaLOG] 0 units SQ TIDAC vial 08/25/18 [Rx] Nitrofurantoin (BID) [Macrobid] 100 mg PO BID #8 capsule 08/25/18 [Rx] Nystatin POWDER [Nystop] 1 appl TP TID #0 bottle 08/25/18 [Rx] Allergies/Adverse Reactions: Allergy/AdvReac Type Severity Reaction Status Date / Time atorvastatin [From Lipitor] Allergy Nausea Verified 08/23/18 13:10 meperidine [From Demerol] Allergy Nausea Verified 08/23/18 13:10 NSAIDS (Non-Steroidal Allergy kideny Verified 08/23/18 13:10 Anti-Inflamma disease Llqwszp-Bdc-Lec Reductase Allergy Nausea Verified 08/23/18 13:10 Inhibitor [Statins] Ertapenem [From Invanz] AdvReac Confusion Verified 08/23/18 13:10 Date of admission: 08/22/18 18:42 Primary care physician: Julian Breen Jr, MD Consults: 08/22/18 18:28 Consult to Cardiology [CONS] Stat Comment: Consulting Provider: Cardiology [facility] Reason for Consult: bradycardia Time Notified: 18:28 Call Completed: No 08/22/18 21:31 Consult to Associate Professor Of Philosophy [CONS] Routine Reason for SW Consult: unsure of placement at [facility] 08/22/18 21:41 Consult to Wound Care [CONS] Routine Reason for Consult: chronic right foot wound Call Completed: No 08/23/18 10:02 Consult to Occupational Therapy [CONS] Routine Comment: Evaluate, develop and implement POC Reason for Consult: weakness Does patient have active BEDREST order?: No Is patient medically & hemodynamically stable?: Yes Consult to Physical Therapy [CONS] Routine Comment: Evaluate, develop and implement POC Reason for Consult: weakness Does patient have active BEDREST order?: No Is patient medically & hemodynamically stable?: Yes Discharging clinician: Kierra Michel Anticipated date of discharge: 08/25/18 - Constitutional Vitals: Temp Pulse Resp BP Pulse Ox 97.7 F 63 18 145/67 91 08/25/18 07:21 08/25/18 07:21 08/25/18 07:21 08/25/18 07:21 08/25/18 07:21 General appearance: Present: A&O X 3, pleasant, no acute distress, obese, answers questions appropriately Exam: General: well developed obese female in no acute distress Head: normocephalic, no lesions, periorbital contusions Eyes: sclera anicteric, conjunctiva pink Neck: supple, trachea midline Lungs: CTA bilaterally, non-labored breathing. no wheezes, rales, or rhonchi Heart: Bradycardic +s1 +s2 No murmurs, clicks, or rubs GI: abdomen soft, non-tender, non-distended. normoactive bowel sounds Extremities: warm, radial pulses palpable and symmetrical. No cyanosis. Non- pitting edema of bilateral LEs. Neuro: A&Ox3. No focal deficits. No speech difficulty or abnormality. Skin: warm, dry, aforementioned periorbital contusions, contusion on lateral right hip, Stage 2 pressure ulcer on left buttock. Significant non-blanching erythema at left pannus crease. - Patient Status Disposition: Transfer SNF Condition: Good - Ambulatory Orders Ambulatory Orders: Basic Metabolic Panel [CHEM] Time Frame: 2 Days, Facility: [facility], Location: Lab - Discharge Instructions Follow Up With: Julian Breen Jr, MD [Primary Care Provider] - Deonte Casper MD [Partnered Physician] - [facility] [Provider Group] Additional Instructions: Finish taking antibiotic to completion for urinary tract infection. Follow-up with your urologist Dr. Casper in about a week. Continue with PT/OT Will hold your bumex until your creatinine is rechecked in 2 days. Continue with the low dose sliding scale insulin for TIDAC and HS Low dose sliding scale insulin for TIDAC and HS. Fingerstick blood glucose insulin units 141-180mg/dl 2 units/SQ 181-220mg/dl 4 units/SQ 221-260mg/dl 6 units/SQ 261-300mg/dl 8units/SQ 301-350mg/dl 10units/SQ 351-400mg/dl 12units/SQ greater than 400mg/dl 14units/SQ Continue with the culture monitor for 2 weeks and follow-up with cardiology Return to the hospital should you become dizzy, lightheaded, chest pain. - Diet and Activity Activity: ambulate only with your walker, as per physical therapy Diet: advance to your usual diet <Kierra Michel - Last Filed: 08/25/18 13:44> Orders not resulted at time of discharge: Pending orders 08/24/18 08:45 ECG event monitor 2 weeks [ECG] Routine 08/25/18 09:42 ECG 24 holter monitor setup [ECG] DAILY 08/26/18 09:42 ECG 24 holter monitor setup [ECG] DAILY 08/27/18 09:42 ECG 24 holter monitor setup [ECG] DAILY 08/28/18 09:42 ECG 24 holter monitor setup [ECG] DAILY 08/29/18 09:42 ECG 24 holter monitor setup [ECG] DAILY 08/30/18 09:42 ECG 24 holter monitor setup [ECG] DAILY 08/31/18 09:42 ECG 24 holter monitor setup [ECG] DAILY 09/01/18 09:42 ECG 24 holter monitor setup [ECG] DAILY 09/02/18 09:42 ECG 24 holter monitor setup [ECG] DAILY 09/03/18 09:42 ECG 24 holter monitor setup [ECG] DAILY 09/04/18 09:42 ECG 24 holter monitor setup [ECG] DAILY 09/05/18 09:42 ECG 24 holter monitor setup [ECG] DAILY 09/06/18 09:42 ECG 24 holter monitor setup [ECG] DAILY 09/07/18 09:42 ECG 24 holter monitor setup [ECG] DAILY 09/08/18 09:42 ECG 24 holter monitor setup [ECG] DAILY Date of Encounter: 08/25/18 - Discharge Diagnosis (1) UTI (urinary tract infection) Status: Acute Qualifiers: Urinary tract infection type: acute cystitis Hematuria presence: with hematuria Qualified Code(s): N30.01 - Acute cystitis with hematuria (2) DM2 (diabetes mellitus, type 2) Status: Chronic Qualifiers: Diabetes mellitus intermediate project manager insulin use: with mcfp use Diabetes mellitus complication status: with kidney complications Diabetes mellitus complication detail: with chronic kidney disease Chronic kidney disease stage: stage 3 (moderate) Qualified Code(s): E11.22 - Type 2 diabetes mellitus with diabetic chronic kidney disease; N18.3 - Chronic kidney disease, stage 3 (moderate); Z79.4 - [facility] (current) use of insulin (3) CKD (chronic kidney disease), stage III Status: Chronic (4) DVT prophylaxis Status: Acute (5) Anemia due to chronic kidney disease Status: Chronic Qualifiers: Chronic kidney disease stage: stage 3 (moderate) Qualified Code(s): N18.3 - Chronic kidney disease, stage 3 (moderate); D63.1 - Anemia in chronic kidney disease (6) Generalized weakness Status: Acute (7) Bradycardia Status: Acute Hospital course: Ms. Connor is a 83 year old female - Time Spent with Patient Total time spent providing and/or coordinating discharge services: Greater than 30 minutes (45) Date of admission: 08/22/18 18:42 Primary care physician: Julian Breen Jr, MD Consults: 08/22/18 18:28 Consult to Cardiology [CONS] Stat Comment: Consulting Provider: Franklyn Meyer Reason for Consult: bradycardia Time Notified: 18:28 Call Completed: No 08/22/18 21:31 Consult to Associate Professor Of Philosophy [CONS] Routine Reason for SW Consult: unsure of placement at [facility] 08/22/18 21:41 Consult to Wound Care [CONS] Routine Reason for Consult: chronic right foot wound Call Completed: No 08/23/18 10:02 Consult to Occupational Therapy [CONS] Routine Comment: Evaluate, develop and implement POC Reason for Consult: weakness Does patient have active BEDREST order?: No Is patient medically & hemodynamically stable?: Yes Consult to Physical Therapy [CONS] Routine Comment: Evaluate, develop and implement POC Reason for Consult: weakness Does patient have active BEDREST order?: No Is patient medically & hemodynamically stable?: Yes - Constitutional Vitals: Temp Pulse Resp BP Pulse Ox 97.7 F 70 18 139/81 91 08/25/18 11:32 12 11:32 12 11:32 08/25/18 11:32 08/25/18 11:32 - Patient Status Overall status at discharge: patient is back to baseline - Attending Attestation I examined this patient and my medical decision-making was reviewed with the Resident Physician Dr Cheatham. I agree with the documented findings, disposition and treatment plan as described except to the extent set forth below. Ms Connor was admitted for bradycardia, weakness that is generalized. She presented with fall due to bl le weakness per her report without preceding symptoms. She was monitored by the cardiology team, found to have UTI, low blood sugars on home insulin regimen and recommended ecf placement by pt/ot. She is discharged today to ecf in stable condition awake, pleasant,no palitations, dizziness, cp. no bladder pain, fevers, chills or back pain. eager to dc to ecf and discharge plan discussed, all questions answered gen- alert, awake,appears stated age eyes- pupils equal round cv- andria rate 50s on bedside tele and normal rhythm, normal s1,s2, no murmurs appreciated, no le edema lungs- ctabl, no wheezing, rhonchi or crackles, norm resp effort on ra neuro- AAOx3, CN grossly intact Bradycardia- cards eval, NSR/first degree AVB/chronic in nature, cards will place 2 week holter prior to dc, no indication for pacer, echo with EF 45-50% previously 55%--cards will see outpt and consider outpt stress testing C ffreundii UTI with hx recurrent UTIs- sensitivities reviewed, old cxs reviewed, hold home keflex and dc on macrobid, fu with dr Casper on dc DM with hypoglycemic episodes- hold home long acting, cont ssi and prn hypoglycemics at ecf with further adjustments pending her course there CKD with creat at high end of her baseline- given increase with her home bumex rec to hold at dc to ECF, repeat creat in next two days and resume if stable further diagnoses and treatment as documented in resident note
[2018-08-25] MEDS: Bumetanide 1 MG TABLET PO SCH (10:26)
[2018-08-25 11:39] VITALS: BP 139/81
--- NOTE | 2018-08-25 14:59 | Physician Discharge Referral ---
ExtendedCare Referral Info Transfer To: [facility] Provider in Charge after Transfer: PCP Institutional Level of Care: Skilled - Diagnosis (1) Bradycardia Priority: Primary Status: Acute (2) UTI (urinary tract infection) Status: Acute (3) CKD (chronic kidney disease), stage III Status: Chronic (4) DM2 (diabetes mellitus, type 2) Status: Chronic (5) Anemia due to chronic kidney disease Status: Chronic (6) Generalized weakness Status: Acute (7) DVT prophylaxis Status: Acute - Transfer Medications Prescriptions: Nitrofurantoin (BID) [Macrobid] 100 mg PO BID #8 capsule Home Medications: Cholecalciferol (Vitamin D3) [Vitamin D] 4,000 unit PO DAILY 07/21/15 [History] Gabapentin [Neurontin] 100 mg PO QID 07/21/15 [History] Omeprazole [PriLOSEC] 20 mg PO DAILY 07/21/15 [History] Pentosan Polysulfate Sodium [Elmiron] 100 mg PO TID 07/21/15 [History] Acetaminophen [Tylenol] 1,300 mg PO Q8H 11/08/15 [History] Baclofen 10 mg PO QAM 10/05/16 [History] Baclofen 20 mg PO HS 10/05/16 [History] Ferrous Sulfate [Iron] 650 mg PO DAILY 06/13/18 [History] Insulin LISPRO [HumaLOG] 0 units SQ HS vial 08/25/18 [Rx] Insulin LISPRO [HumaLOG] 0 units SQ TIDAC vial 08/25/18 [Rx] Nitrofurantoin (BID) [Macrobid] 100 mg PO BID #8 capsule 08/25/18 [Rx] Nystatin POWDER [Nystop] 1 appl TP TID #0 bottle 08/25/18 [Rx] Allergies/Adverse Reactions: Allergy/AdvReac Type Severity Reaction Status Date / Time atorvastatin [From Lipitor] Allergy Nausea Verified 08/23/18 13:10 meperidine [From Demerol] Allergy Nausea Verified 08/23/18 13:10 NSAIDS (Non-Steroidal Allergy kideny Verified 08/23/18 13:10 Anti-Inflamma disease Nvubscz-Ery-Wlx Reductase Allergy Nausea Verified 08/23/18 13:10 Inhibitor [Statins] Ertapenem [From Invanz] AdvReac Confusion Verified 08/23/18 13:10 - Respiratory Orders Smoking Cessation: Smoking cessation has been advised. For more information, call the [place] Tobacco Quit Line at 1-594-QHMC-NOW. - Lab Orders Lab Orders: Other (include drug levels w/frequency) (bmp in 2 days to re-check creatinine prior to restarting Bumex) - Advance Directives Code Status: DNR-Arrest/Don't Intubate - Mobility Orders Ambulate - Rehabiliation Orders Rehab Potential: Fair Rehab Orders: Evaluation for Physical Therapy, Evaluation for Occupational Therapy - Diet Orders Regular CERTIFICATION: I certify that the transfer of the above named patient to an Extended Care [facility] is necessary for the continuing treatment of the diagnosis listed. The above information is true and accurate reflection of patient's current condition. Confidential - Redisclosure prohibited without a patient's written consent.
--- NOTE | 2018-08-25 15:00 | Physician Discharge Referral ---
ExtendedCare Referral Info Provider in Charge after Transfer: PCP Institutional Level of Care: Skilled - Diagnosis (1) UTI (urinary tract infection) Priority: Secondary Status: Acute (2) DM2 (diabetes mellitus, type 2) Priority: Secondary Status: Chronic (3) CKD (chronic kidney disease), stage III Priority: Secondary Status: Chronic (4) DVT prophylaxis Priority: Secondary Status: Acute (5) Anemia due to chronic kidney disease Priority: Secondary Status: Chronic (6) Generalized weakness Priority: Secondary Status: Acute (7) Bradycardia Priority: Primary Status: Acute - Transfer Medications Prescriptions: Nitrofurantoin (BID) [Macrobid] 100 mg PO BID #8 capsule Home Medications: Cholecalciferol (Vitamin D3) [Vitamin D] 4,000 unit PO DAILY 07/21/15 [History] Gabapentin [Neurontin] 100 mg PO QID 07/21/15 [History] Omeprazole [PriLOSEC] 20 mg PO DAILY 07/21/15 [History] Pentosan Polysulfate Sodium [Elmiron] 100 mg PO TID 07/21/15 [History] Acetaminophen [Tylenol] 1,300 mg PO Q8H 11/08/15 [History] Baclofen 10 mg PO QAM 10/05/16 [History] Baclofen 20 mg PO HS 10/05/16 [History] Ferrous Sulfate [Iron] 650 mg PO DAILY 06/13/18 [History] Insulin LISPRO [HumaLOG] 0 units SQ HS vial 08/25/18 [Rx] Insulin LISPRO [HumaLOG] 0 units SQ TIDAC vial 08/25/18 [Rx] Nitrofurantoin (BID) [Macrobid] 100 mg PO BID #8 capsule 08/25/18 [Rx] Nystatin POWDER [Nystop] 1 appl TP TID #0 bottle 08/25/18 [Rx] Allergies/Adverse Reactions: Allergy/AdvReac Type Severity Reaction Status Date / Time atorvastatin [From Lipitor] Allergy Nausea Verified 08/23/18 13:10 meperidine [From Demerol] Allergy Nausea Verified 08/23/18 13:10 NSAIDS (Non-Steroidal Allergy kideny Verified 08/23/18 13:10 Anti-Inflamma disease Kgpnybc-Esf-Yxo Reductase Allergy Nausea Verified 08/23/18 13:10 Inhibitor [Statins] Ertapenem [From Invanz] AdvReac Confusion Verified 08/23/18 13:10 - Respiratory Orders Smoking Cessation: Smoking cessation has been advised. For more information, call the [place] Tobacco Quit Line at 9-811-TENN-NOW. - Lab Orders Lab Orders: Other (include drug levels w/frequency) (bmp in 2 days to assess creat 1.5 on dc, if stable resume home bumex) - Rehabiliation Orders Rehab Potential: Good - Diet Orders No Added Salt (ANUJA), No Concentrated Sweets CERTIFICATION: I certify that the transfer of the above named patient to an Extended Care Facility is necessary for the continuing treatment of the diagnosis listed. The above information is true and accurate reflection of patient's current condition. Confidential - Redisclosure prohibited without a patient's written consent.
== END 2018-08-25 16:21 ==
LOC: 3BNU 14:48 → EMEROOARM 14:48 → SUATTDRO 18:42 → 2NENU 19:27
PROVIDERS: ADMIT Internal Medicine Cardiovascular Disease; ATTEND Internal Medicine

== ENCOUNTER 2018-12-04 11:27 | Inpatient (IN) ==
[2018-12-04] MEDS ORDERED: Bisacodyl 10 MG RECTAL SUPPOSITORY RC PRN (13:23)
[2018-12-04] MEDS ORDERED: MORPHINE SUL Oral CONC 10 MG/0.5 ML ORAL.SYG PO PRN (13:23)
[2018-12-04] MEDS ORDERED: *HR* LORazepam Oral Conc 2 MG/ML PO PRN (13:23)
[2018-12-04] MEDS ORDERED: Atropine Sulfate 1% 40 DROP/2 ML BOTTLE SL PRN (13:23)
[2018-12-04] MEDS ORDERED: Acetaminophen 650 MG RECTAL SUPP RC PRN (13:25)
[2018-12-04] MEDS ORDERED: Scopolamine Patch 1.5 MG PATCH.TD72 TD SCH (13:30)
--- NOTE | 2018-12-04 13:39 | Pallative History & Physical ---
Date of Encounter: 12/04/18 Time of Encounter: 15:30 Assessment and Plan (1) Generalized pain Status: Acute Roxanol 5 mg did not seem to alleviate her symptoms - this has been increased to 10mg. Has been utilized x3 since this am. continue and monitor. (2) Dyspnea Status: Acute Continue supportive oxygen and Roxanol for shortness of breath. Has Lorazepam available as well if needed. Qualifiers: Dyspnea type: unspecified Qualified Code(s): R06.00 - Dyspnea, unspecified (3) Congestion of upper airway Status: Acute Begin Scopolamine patch and Atropine drops as needed. (4) Goals of care, counseling/discussion Status: Acute Patient admitted to general inpatient hospice care today. She appears imminent, and likely not to survive stay. Will be managing distressing symptoms, including discomfort and dyspnea. She was removed from bipap earlier today and Roxanol was started for air hunger. Son, Jose Juan, is only child and resides in [place], but will be staying til Sunday. She resided at [place], [facility] is aware that if symptoms stabilize and she requires transfer, another facility may need selected as [facility] does not have contract with [place]. Palliative will continue to follow closely and assist with symptom management. (5) Renal failure (ARF), acute on chronic Status: Acute Minimal UOP the last 48 hours. Family is aware. Qualifiers: Chronic kidney disease stage: unspecified stage Qualified Code(s): N17.9 - Acute kidney failure, unspecified; N18.9 - Chronic kidney disease, unspecified (6) Acute respiratory failure with hypoxia Status: Acute (7) Encephalopathy, metabolic Status: Acute (8) Pneumonia Status: Acute Qualifiers: Pneumonia type: due to unspecified organism Laterality: bilateral Lung location: unspecified part of lung Qualified Code(s): J18.9 - Pneumonia, unspecified organism Internal Medicine - H&P: HPI Admitted From: Intrahospital Transfer Plans for Post Hospital Care: Transfer Inp Rehab Fac History of present illness: Ms. Connor is a 83 year old female who was initially admitted to [facility] for pneumonia. She has been at [facility] for some time after a fall in a patient's home. She retired from [employer] some years back. She was treated for pneumonia, but had respiratory decline, and ultimately required bipap support. She has also history of CKD, and had fluid overload, so nephrology consult was obtained and patient did have a couple of dialysis sessions, the last was on 12/01. ID was consulted as patient did not improve, and offered transfer to [facility] which was declined by POA. Pulmonology also saw patient for possible diagnostic bronchoscopy, however, patient was high risk for procedure, and likely would have needed intubation, which was also against her wishes. Ultimately, son, Jose Juan, elected to transition to [facility], and keep her comfortable. Bipap was [place] late last [place]. She was admitted to general inpatient hospice today for symptom management. Past Med Surg Social Fam HX - Past Medical History Medical history: renal disease Additional medical history: Symptomatic bradycardia status post pacemaker insertion Psychiatric history: no psych history - Past Surgical History Surgical History: appendectomy, cataract, cholecystectomy, orthopedic, other, SIMONA/BSO Additional surgical history: cervical spine repair, laminectomy - Social History Smoking Status: Never smoker Smokeless Tobacco Status: No Alcohol use: none Drug use: none - Family History Sister Living Status: Hx Family Cardiac Disorders: Yes (pacemaker, HTN) Hx Family Endocrine Disorder: Yes Hx Family Autoimmune Disorders: Yes Father Living Status: Mother Adopted: No Living Status: Hx Family Cardiac Disorders: Yes (CAD, HTN, CVA) Internal Medicine - H&P: Meds Pentosan Polysulfate Sodium [Elmiron] 100 mg PO TID 07/21/15 [History] Acetaminophen [Tylenol] 650 mg PO Q8H PRN 11/08/15 [History] Baclofen 20 mg PO HS 10/05/16 [History] Ferrous Sulfate [Iron] 325 mg PO BIDWM 06/13/18 [History] Baclofen [Lioresal] 10 mg PO QAM 09/15/18 [History] Bumetanide 2 mg PO DAILY 09/15/18 [History] Cholecalciferol (Vitamin D3) [Vitamin D] 1,000 unit PO DAILY 09/15/18 [History] Gabapentin [Neurontin] 100 mg PO QID 09/15/18 [History] Glucagon,Human Recombinant [Glucagon Emergency Kit] 1 mg IJ ONCE PRN 09/15/18 [History] Insulin Degludec [Tresiba Flextouch U-100] 17 units SQ HS 09/15/18 [History] Insulin LISPRO [HumaLOG] 0 units SQ TIDAC 09/15/18 [History] Loperamide HCl [Anti-Diarrheal] 2 mg PO Q4H PRN 09/15/18 [History] Nystatin POWDER [Nystop] 1 appl TP BID 09/15/18 [History] Omeprazole [PriLOSEC] 20 mg PO DAILY@0730 09/15/18 [History] Apixaban [Eliquis] 2.5 mg PO BID 11/27/18 [History] Bisacodyl [Gentle Laxative] 10 mg RC DAILY PRN 11/27/18 [History] Saccharomyces Boulardii [Probiotic] 250 mg PO BID 11/27/18 [History] Allergy/AdvReac Type Severity Reaction Status Date / Time menthol Allergy See Verified 09/15/18 09:45 Comments atorvastatin [From Lipitor] AdvReac Nausea Verified 11/27/18 13:51 Ertapenem [From Invanz] AdvReac Confusion Verified 08/23/18 13:10 meperidine [From Demerol] AdvReac Nausea Verified 11/27/18 13:51 NSAIDS (Non-Steroidal AdvReac kideny Verified 11/27/18 13:51 Anti-Inflamma disease Egrgosq-Lig-Rdv Reductase AdvReac Nausea Verified 11/27/18 13:51 Inhibitor [Statins] ROS unobtainable: due to mental status Palliative Care-Exam - Constitutional General appearance: Present: mild distress - Head Head Exam: Present: normal inspection, normocephalic - Eye Eye exam: Present: normal appearance, PERRL - Respiratory Additional comments: Lung tarango with rhonchi throughout, + upper airway secretion - Cardiovascular Cardiovascular exam: Present: +S1, +S2 - GI/Abdominal Exam GI/Abdominal exam: Present: distended, soft - Catheter Type: Urethral (Fernández) - Extremities Exam Additional comments: Generalized edema 3+ to all extremities - Neurological Exam Additional comments: Minimally responsive to verbal/ tactile stimuli - Skin Skin exam: Present: dry, pallor, warm Palliative Quality Palliative Quality: Screen for Code Status: Yes, Screen for Goals of Care: Yes, Screen for Pain: Yes, If Pain Regimen Started, Initiate Bowel Regimen: Yes, Screen for Nausea/Vomitting: Yes Code Status: 12/04/18 13:23 Resuscitation Status: Active [RES] Routine Comment: Resuscitation Status: DNR-Comfort Care
[2018-12-04] MEDS ORDERED: Nystatin POWDER 30 GM BOTTLE TP SCH (21:00)
--- NOTE | 2018-12-05 13:18 | Death Note ---
Discharge Sum: Summary - Date and Time Date of : 12/04/18 Time of : 16:28 - Summary Details: Patient was admitted to general inpatient hospice for symptom management after a prolonged hospital stay where she was admitted for bilateral pneumonia and acute on chronic renal failure. Did had extensive IV atb therapy and a few dialysis sessions, but condition continued to decline. Patient was transitioned to inpatient hospice, however, did pass away shortly after admission with son at bedside. - Additional Data Confirmation of as documented by pronouncing clinician: no pulse, no re spirations, no heart sounds Family: at bedside Was code activated?: No Autopsy requested?: No trade mark examiner notified?: No Organ bank notified?: Yes Hospice patient?: Yes Discharge Sum: Diag - PCOD Probable Cause of : Respiratory arrest Discharge Sum: Prov - Provider Admitting clinician: Salome Chanel Consults: 12/04/18 13:23 Consult to Palliative Care [CONS] Routine Comment: Consulting Provider: [facility] [place] Reason for Consult: general inpt hospice Call Completed: No
== END 2018-12-04 16:28 | disposition hospice, inpatient (51) | DRG 951 ==
LOC: 2ANU 14:07
PROVIDERS: ADMIT Internal Medicine Hospice and Palliative Medicine; ATTEND Internal Medicine Hospice and Palliative Medicine